=== PATIENT | female | born 1935 | race Caucasian/White ===

== ENCOUNTER → 2018-07-05 16:43 | Outpatient (CLI) | payer MEDICARE, SELFPAY | PROVIDERS: Family Provider Internal Medicine; PCP Internal Medicine; Visit Provider Internal Medicine | DX: M54.6 Pain in thoracic spine (principal) | CPT/HCPCS: 72070 ==

== ENCOUNTER → 2018-10-18 16:07 | Outpatient (CLI) | payer MEDICARE, SELFPAY ==
--- NOTE | 2018-10-18 16:18 | RAD_ITS ---
STUDY: X-RAY - LUMBAR SPINE REASON FOR EXAM: Female, 82 years old. Back pain. TECHNIQUE: 5 view(s) of the lumbar spine were obtained. COMPARISON: None FINDINGS: There is an exaggerated lumbar lordosis. There is a 20 degree dextroscoliosis of the lumbar spine centered near L2-3. There is minor retrolisthesis of L3 on L4. The patient has undergone prior L4 and L5 laminectomies. There is multilevel endplate spondylosis of the lumbar vertebrae. There is multi-level degenerative disc disease with multi-level disc space narrowing. There is no demonstrated osseous destructive lesion or acute fracture. There are multilevel degenerative changes of the facet articulations. Degenerative arthroses with particular cortical sclerosis also seen in the inferior aspect of the bilateral sacroiliac joints. There are mild atherosclerotic calcifications of the abdominal aorta and iliac arteries. A number of surgical clips project in the high epigastrium. RAD/L/S Spine Min 4 Views IMPRESSION: Prior L4 and L5 laminectomies. Degenerative changes of the spine, as detailed above. Electronically Signed: Fernando Nassar MD at 16:47 EST , Service support ,
== END ==
PROVIDERS: Family Provider Internal Medicine; PCP Internal Medicine; Referring Provider Nurse Practitioner Family; Visit Provider Nurse Practitioner Family
DX: M46.96 Unspecified inflammatory spondylopathy, lumbar region (principal); M96.1 Postlaminectomy syndrome, not elsewhere classified; M54.17 Radiculopathy, lumbosacral region; M47.817 Spondylosis without myelopathy or radiculopathy, lumbosacral region
CPT/HCPCS: 72110

== ENCOUNTER → 2018-12-21 10:44 | Outpatient (CLI) | payer MEDICARE, SELFPAY ==
--- NOTE | 2018-12-21 10:52 | ECHOCS_ITS ---
Reason For Study: PALPITATIONS Procedure This was a 2D Doppler, Color Flow transthoracic echocardiogram. Exam performed in department. Left Ventricle Normal size and thickness. Senile septal hypertrophy without evidence of systolic anterior motion of mitral leaflet or LVOT obstruction. The estimated ejection fraction is 65 %. Septal motion consistent with IVCD. Right Ventricle Normal size and thickness. Normal systolic function. Atria Normal left atrium. Normal right atrium. Normal atrial septum. Mitral Valve The mitral valve is structurally normal. No prolapse or stenosis seen. Trivial mitral valve insufficiency. Tricuspid Valve Normal tricuspid valve. Mild (1+) tricuspid valve insufficiency. Right ventricular systolic pressure estimated to be 25 mmHg. Aortic Valve Trisinus/trileaflet aortic valve. Pulmonic Valve The pulmonic valve is not well visualized. Great Vessels Normal aortic root. Normal arch. Normal inferior vena cava. Inferior vena cava collapse with sniff. Pericardium/Pleural No pericardial effusion. Medication 22 gauge I.V. with prn adaptor inserted into right arm. Diluted definity 5ml given slow IV push to enhance endocardial definition. MMode/2D Measurements & Calculations LVIDd: 5.0 cm IVSd: 0.94 cm Ao root diam: 3.8 cm LVIDs: 3.1 cm LVPWd: 0.98 cm FS: 38.5 % LAV(MOD-bp): 43.6 ml EDV(MOD-sp4): 77.1 ml EDV(MOD-sp2): 77.5 ml LAV(MOD-bp) Indexed: 23.1 ml/m2 ESV(MOD-sp4): 26.9 ml EF(MOD-sp2): 74.5 % LAV(MOD-sp2): 47.7 ml EF(MOD-sp4): 65.2 % LAV(MOD-sp4): 35.3 ml SV(MOD-sp4): 50.3 ml SV(MOD-sp2): 57.7 ml LA A4 area: 15.6 cm2 LA dimension(2D): 3.3 cm RA A4 area: 15.0 cm2 Time Measurements MV dec time: 0.50 sec Doppler Measurements & Calculations MV E max morgan: 53.5 cm/sec Lat Peak E' Morgan: 9.1 cm/sec Med Peak E' Morgan: 3.9 cm/sec MV A max morgan: 74.0 cm/sec E/E' lat: 5.9 E/E' med: 13.8 MV E/A: 0.72 Ao V2 max: 119.6 cm/sec LV V1 max: 93.1 cm/sec PA V2 max: 72.0 cm/sec Ao max P.7 mmHg LV V1 max P.5 mmHg TR max morgan: 245.9 cm/sec TR max P.2 mmHg Interpretation Summary The estimated ejection fraction is 65 %. Senile septal hypertrophy without evidence of systolic anterior motion of mitral leaflet or LVOT obstruction. Trivial mitral valve insufficiency. Mild (1+) tricuspid valve insufficiency. Right ventricular systolic pressure estimated to be 25 mmHg. Compared to echo report dated 06/08/2016, no appreciable changes noted. The study was technically difficult. Contrast injection was performed. Ordering Physician: Josefina Xiong Referring Physician: Josefina Xiong Performed By: Kita Shaver, RDCS, RVT
== END ==
PROVIDERS: Family Provider Internal Medicine; PCP Internal Medicine; Referring Provider Internal Medicine; Visit Provider Internal Medicine
DX: R00.2 Palpitations (principal)
CPT/HCPCS: 93306; Q9957; A4216; C8929

== ENCOUNTER 2019-01-10 11:00 | Observation (INO) | payer MEDICARE, SELFPAY ==
[2019-01-10] VITALS (11 sets, daily range): BP systolic 111–160; BP diastolic 62–103; PULSE 56–75; RESP 14–20; TEMP 36.6–36.8; O2SAT 94–100; BMI 38.5; BMI 38.7
--- NOTE | 2019-01-10 11:23 | RAD_ITS ---
STUDY: X-RAY CHEST REASON FOR EXAM: Female, 83 years old. Chest heaviness and palpitations. TECHNIQUE: Single AP portable view of the chest. COMPARISON: Comparison is made with prior study dated June 08, 2016. FINDINGS: EKG electrodes are seen. Stable elevation of the right hemidiaphragm. There is no demonstrated pleural abnormality. There is mild cardiac enlargement. Normal mediastinum and yaw. Normal visualized pulmonary arteries. There is atherosclerotic tortuosity of the aortic arch and descending thoracic aorta. There are diffuse degenerative changes of the visualized thoracic spine. Normal visualized ribs, clavicles, and shoulders. There is no demonstrated abnormality of the visualized soft tissue structures of the upper abdomen. RAD/Chest 1 View (Portable) IMPRESSION: Cardiomegaly. No acute abnormality is seen. Electronically Signed: Young Giles, at 11:57 EST , Service support ,
--- NOTE | 2019-01-10 11:23 | EKG12_ITS ---
Test Reason : PALPATATIONS Blood Pressure : / mmHG Vent. Rate : 069 BPM Atrial Rate : 069 BPM P-R Int : 244 ms QRS Dur : 114 ms QT Int : 396 ms P-R-T Axes : -46 011 -24 degrees QTc Int : 424 ms Unusual P axis, possible ectopic atrial rhythm with undetermined rhythm irregularity Low voltage QRS Right bundle branch block T wave abnormality, consider inferior ischemia Abnormal ECG Confirmed by MADELINE BARBA, LEE ([id number]), ware tester ELIOT DE LEÓN ([id number] on 01/11/2019 3:44:25 PM Referred By: Diogo Leggett Confirmed By:LEE CORREA MD
[2019-01-10 11:49] LABS: Absolute Lymphocyte Count 3.31 X10^3/ul (0.83-4.51); Absolute Neutrophil Count 2.2 X10^3/uL (2.0-7.7); Basophil# 0.02 X10^3/uL; Basophil% 0.3 % (0-1); Eosinophil# 0.13 X10^3/uL; Eosinophils% 2.1 % (0-5); Hematocrit 39.4 % (37-47); Hemoglobin 12.7 g/dl (12.0-15.0); Lymphocyte # 3.31 X10^3/ul (4.0); Lymphocyte % 53.8 % (19-41); Mean Corp Hgb Conc 32.2 g/gl (32-36); Mean Corpuscular Hgb 31.2 pg (27.0-32.0); Mean Corpuscular Volume 96.8 fL (81-99); Mean Platelet Vol. 9.1 fl (6.2-12.0); Monocyte# 0.44 X10^3/uL; Monocyte% 7.2 % (0-10); Neutrophil # 2.24 X10^3/uL (2.7-7.7); Neutrophil % 36.4 % (47-70); Platelet Count 177 K/mm3 (150-450); RBC Distribution Width CV 13.4 % (11.6-14.6); RBC Distribution Width SD 47.6 fl (35.1-43.9); Red Blood Count 4.07 M/mm3 (4.2-5.4); White Blood Count 6.2 K/mm3 (4.4-11.0)
[2019-01-10 11:50] LABS: POSITIVE COUNT NO; POSITIVE DIFFERENTIAL NO; POSITIVE MORPHOLOGY NO
[2019-01-10 12:11] LABS: Anion Gap 6 (5-15); BUN 22 mg/dL (7-18); BUN/Creat Ratio 16.5 RATIO (10-20); Calcium,Total 8.9 mg/dL (8.5-10.1); Chloride 106 mmol/L (98-107); Creatinine, Serum 1.33 mg/dL (0.55-1.02); EST Glomerular Filtration Rate 41 mL/min (>60); Est Glom Filt Rate - Afr Amer 49 mL/min (>60); Estimated Creatinine Clearance 24.61 ml/min; Glucose 95 mg/dL (74-106); Potassium 4.1 mmol/L (3.5-5.1); Sodium Level 140 mmol/L (136-145); Thyroid Stim Hormone (TSH) 1.79 uIU/mL (0.358-3.74)
--- NOTE | 2019-01-10 12:37 | ED.DCSUM_ITS ---
- ER Visit Summary Date of Service: 01/10/19 Chief Complaint: Abnormal heart rhythm History of Present Illness: The patient is a 83 F with an abnormal heart rhythm. She was contacted by the heart center because she is wearing a monitor, and it was noted that she might have atrial fibrillation. She reports intermittent palpitations of the last several weeks. During these episodes, she gets weak and sweaty. She says she has pain into her left shoulder and left arm and left axilla. She denies any history of this in the past. She takes aspirin but no other blood thinners. She also takes bystolic and is compliant with her treatment. Physical Examination: Afebrile and vital signs unremarkable except for a blood pressure of 160/103. Heart rate 56. Heart is irregularly irregular. Lungs clear. Extremities nontender with no edema. Skin normal in color. Alert and oriented. Test Results: EKG showed atrial fibrillation at a rate of 69. CBC, BMP, troponin unremarkable. TSH normal. Chest x-ray unremarkable. Emergency Department Course and Treatment: EKG done. Patient placed on a monitor. Rate is controlled. Patient will need anticoagulation. I am also concerned that she is having spells of weakness, sweating, and left arm pain. She has not had a stress test. She has no history of ACS, PE, or aortic disease. I spoke with hospitalist who will admit for further care. Treatment Plan: As above Disposition: Admission Impression: 1. A. fib This note was generated with leemail dictation software. It may contain incorrect words, spelling, and punctuation that were not noted in review of the chart prior to signing ED Disposition - Plan for ED Patient: Referrals: Josefina Xiong DO [Primary Care Provider] -
--- NOTE | 2019-01-10 13:03 | CASEMGMT ---
RN CM Assessment Introduced role of RN CM to patient and Aung at bedside. Patient is alert, oriented and able to participate in RN CM Assessment. Care providers, pharmacy, and demographics verified. Presentation: Admitted for Chest Pressure, New Onset Afib. CC: Abnormal Heart Rhythm, she was contacted by the heart center because she was wearing a monitor, and it was noted that she might have atrial fibrillation. PCP: Dr Josefina Jacobs Specialists: Pain- Dr Crespo Preferred Pharmacy: [facility] Insurance: [employer] Medicare PPO Prescription Benefit: Yes LNOK: Aung Lewis Living Arrangements: Retired, Lives with in a Home. Independent with ambulation and ADL's. Can drive if she wants but preference for to drive. Transportation: Aung, will drive on [place]. DME: [employer]. No Preference on Company. HHC: Denies past. no preference on Agency. SNF: Denies past. No preference on Facility. DC PLAN: Home with , No anticipated needs identified. Matty Fierro RNCM
--- NOTE | 2019-01-10 13:32 | HP.PCM_ITS ---
Problem List (1) GERD (gastroesophageal reflux disease) Status: Chronic (2) Type II diabetes mellitus Status: Chronic (3) Hypertension Status: Chronic (4) New onset a-fib Status: Acute (5) IBS (irritable bowel syndrome) Status: Chronic (6) DJD (degenerative joint disease) Status: Chronic (7) Chest pressure Status: Acute History of Present Illness Date of Admission: 01/10/19 Chief Complaint: New onset A. fib and chest pressure The patient is a 83 year old F with history of hypertension and diabetes mellitus type 2, irritable bowel syndrome was sent to ER by heart center as she is wearing Holter monitor. She was found to have A. fib. Patient also feeling palpitation/flutter waves for last 3-4 weeks. She is also feeling very weak tired and sweaty. She complain of intermittent chest pressure with radiation to left shoulder and arm for about 1 month unrelated to activity. She denies any change in breathing. In ED, EKG shows A. fib at 69 bpm with right bundle branch block. Previous EKG of May 2016 shows sinus rhythm with first-degree AV block incomplete right bundle branch block, QRS 114 ms. Chest x-ray shows no acute abnormality. [] Past Medical History Past Medical History (Chronic Problems): Chronic Problems IBS (irritable bowel syndrome) (Chronic) DJD (degenerative joint disease) (Chronic) GERD (gastroesophageal reflux disease) (Chronic) Type II diabetes mellitus (Chronic) Hypertension (Chronic) Allergies fentanyl Adverse Reaction (Verified 01/10/19 11:01) Other palpitations, increased blood pressure Sulfa (Sulfonamide Antibiotics) Adverse Reaction (Verified 01/10/19 11:01) Other Home Medications: Ambulatory Orders Medication Instructions Recorded Aspirin [Ecotrin] 81 mg PO DAILY 03/01/14 Cyclobenzaprine [Flexeril] 10 mg PO TID PRN PRN 03/01/14 Nebivolol HCl [Bystolic (Beta 10 mg PO QHS 03/01/14 Luis Miguel)] Hydrocodone/Acetaminophen [Vicodin 1 - 2 tab PO BID PRN 06/08/16 Es 7.5-300 mg Tablet] Omeprazole 40 mg PO DAILY 06/08/16 Cholecalciferol (VIT D3) [Vitamin 5,000 unit PO DAILY 07/18/17 D] Ezetimibe [Zetia] 10 mg PO DAILY 07/18/17 Rosuvastatin Calcium 10 mg PO QHS 07/18/17 Dicyclomine HCl 20 mg PO TID PRN PRN 09/08/17 Turmeric Root Extract [Turmeric] 500 mg PO DAILY 09/08/17 Rosa Lee, B.lactis 1 each PO DAILY 01/10/19 [Probiotic] Surgical History: appendectomy, hysterectomy, tonsillectomy, - - Paraesophageal hernia repair Psychiatric History: No pertinent psych hx 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 Denies: Chills, Fever, Weight Change HEENT: Denies: Head Aches, Sinus Congestion, Sinus Drainage Cardiovascular: Reports: Chest Pressure. Denies: Chest Pain, Palpitations Respiratory: Denies: Cough, Shortness of breath at rest, Sputum production Gastrointestinal: Reports: Constipation. Denies: Abdominal Pain, Nausea, Vomiting Genitourinary: Reports: Incontinence. Denies: Dysuria, Frequency, Hesitancy, Nocturia, Urgency Musculoskeletal: Reports: Joint Pain, Joint stiffness. Denies: Joint Tenderness Skin: Denies: Rash, Wounds Neurological: Reports: Balance problems, Incoordination, - - Patient had concern for Parkinson disease. Patient has shaking but denies tremors and or body. Denies shortness of leg gait, muscle rigidity or postural instability.. Denies: Focal weakness, Numbness, Tingling Psychiatric: Denies: Anxiety, Depression, Homicidal Ideations, Suicidal Ideations Hematologic/ Lymphatic: Denies: Easy Bruising, Easy Bleeding VTE Information - Inpt Only VTE Present on Admission: No VTE Mechan Device Prophylaxis: None VTE Pharm Prophylaxis ordered?: Yes Patient Problems: Active and Suspected Problems New onset a-fib (Acute) Chest pressure (Acute) - Physical Exam General: Alert, Oriented x3, Cooperative HEENT: Atraumatic, PERRLA, EOMI, Normocephalic Neck: Supple, No JVD, Negative Carotid Bruits Lungs: Clear to auscultation, Normal air movement, No rhonchi, No wheeze, No rales Cardiovascular: Regular rate, Normal S1, Normal S2, No murmurs, Irregular Rate Abdomen: Bowel Sounds Present, Soft, Non Tender, Non-Distended Extremities: Capillary Refill Less than 3 Seconds, Edema Skin: No rashes, No breakdown Musculoskeletal: No Tenderness to Palpation of Joints or Extremities, Arthritic Changes Neurological: Cranial nerves II-XII grossly intact, Deep Tendon Reflexes 2+/4 and Symmetrical, Neuro grossly intact, - - No visible tremor. No muscle rigidity. No postural instability. Psych/Mental Status: Normal Affect, Appropriate Vital Signs Temp Pulse Resp BP Pulse Ox 97.9 F 68 16 111/91 H 100 01/10/19 11:07 01/10/19 12:40 01/10/19 12:40 01/10/19 12:40 01/10/19 12:40 Oxygen Flow Rate (L/min) 2 Oxygen Delivery Method Nasal Cannula Weight: 203 lb 14.841 oz Body Mass Index (BMI) 38.5 Laboratory Tests Past 24 Hrs 01/10/19 01/10/19 11:42 11:42 WBC 6.2 RBC 4.07 L Hgb 12.7 Hct 39.4 MCV 96.8 MCH 31.2 MCHC 32.2 RDW 13.4 RDW Differential 47.6 H Plt Count 177 MPV 9.1 Immature Gran % (Auto) 0.200 Neut % (Auto) 36.4 L Lymph % (Auto) 53.8 H [place] % (Auto) 7.2 Eos % (Auto) 2.1 Baso % (Auto) 0.3 Absolute Neuts (auto) 2.2 Absolute Lymphs (auto) 3.31 Total Counted Not Reportable Sodium 140 Potassium 4.1 Chloride 106 Carbon Dioxide 28.0 Anion Gap 6 BUN 22 H Creatinine 1.33 H Estim Creat Clear Calc 24.61 Est GFR (MDRD) Af Amer 49 L Est GFR (MDRD) Non-Af 41 L BUN/Creatinine Ratio 16.5 Glucose 95 Calcium 8.9 Troponin I < 0.015 TSH 1.79 Assessment/Plan All Active Problems New onset a-fib (Acute) Chest pressure (Acute) The patient is a 83 year old F with history of hypertension and diabetes mellitus type 2, irritable bowel syndrome was sent to ER by heart center as she is wearing Holter monitor. She was found to have A. fib. Patient also feeling palpitation/flutter waves for last 3-4 weeks. She is also feeling very weak tired and sweaty. She complain of intermittent chest pressure with radiation to left shoulder and arm for about 1 month unrelated to activity. She denies any change in breathing. In ED, EKG shows A. fib at 69 bpm with right bundle branch block. Previous EKG of May 2016 shows sinus rhythm with first-degree AV block incomplete right bundle branch block, QRS 114 ms. Chest x-ray shows no acute abnormality. 1. New onset A. fib: On heart rate is mainly on the bradycardic side between 40-60/min, mostly from by Bystolic 10 mg daily. She had echo done on 12/21/2018, reported as normal left ventricle size and thickness, EF 65% with septal motion consistent with IVCD. Senile septal hypertrophy but no evidence of FRANK or LVOT obstruction. No significant valvular abnormality. Mild TR, RVSP 25 mmHg. TSH and free T4 tomorrow a.m. Eliquis 5 mg twice daily 2. Intermittent chest pressure: Serial troponin enzymes. Lexiscan stress test tomorrow morning. Patient does not have prior history of coronary artery disease/heart cath 3. Hypertension: Continue Bystolic with holding parameters for heart rate less than 55/min 4. Diabetes mellitus type 2: On Accu-Chek before meals and at bedtime and cover with NovoLog sliding scale. Glucose on BMP is 95. A1c tomorrow a.m. 5. History of thyroid nodules: Patient had 2 ultrasound-guided thyroid nodule biopsies and was benign by Dr. Sullivan. Denies hypothyroidism or hypothyroidism. 6. Other comorbidities include irritable bowel syndrome, fibromyalgia, diffuse degenerative joint disease of knees hip joints and lower back. Patient also had concern of Parkinson disease but I do not find consistent findings of tremor, postural instability, muscle rigidity. Patient was advised to follow-up with neurology as an outpatient. DVT prophylaxis: On Eliquis 5 mg twice daily Clinical Impression(s) from Imaging Studies Chest X-Ray 01/10/19 11:23 IMPRESSION: Cardiomegaly. No acute abnormality is seen. Laboratory Results 01/10/19 11:42: WBC 6.2, RBC 4.07 L, Hgb 12.7, Hct 39.4, MCV 96.8, MCH 31.2, MCHC 32.2, RDW 13.4, RDW Differential 47.6 H, Plt Count 177, MPV 9.1, Immature Gran % (Auto) 0.200, Neut % (Auto) 36.4 L, Lymph % (Auto) 53.8 H, [place] % (Auto) 7.2, Eos % (Auto) 2.1, Baso % (Auto) 0.3, Absolute Neuts (auto) 2.2, Absolute Lymphs (auto) 3.31, Total Counted Not Reportable 01/10/19 11:42: Sodium 140, Potassium 4.1, Chloride 106, Carbon Dioxide 28.0, Anion Gap 6, BUN 22 H, Creatinine 1.33 H, Estim Creat Clear Calc 24.61, Est GFR (MDRD) Af Amer 49 L, Est GFR (MDRD) Non-Af 41 L, BUN/Creatinine Ratio 16.5, Glucose 95, Calcium 8.9, Troponin I < 0.015, TSH 1.79 Code Visit OBSV E&M: 27454 Initial observation care L3
--- NOTE | 2019-01-10 13:55 | EKG12_ITS ---
Test Reason : CP Blood Pressure : / mmHG Vent. Rate : 061 BPM Atrial Rate : 061 BPM P-R Int : 252 ms QRS Dur : 112 ms QT Int : 412 ms P-R-T Axes : 003 009 -26 degrees QTc Int : 414 ms Sinus rhythm with 1st degree A-V block with Premature atrial complexes Incomplete right bundle branch block T wave abnormality, consider inferior ischemia Abnormal ECG Confirmed by MADELINE BARBA, LEE ([id number]), medical transcription editor FELICITA PRESCOTT ([id number] on 01/15/2019 2:08:27 PM Referred By: Diogo Leggett Confirmed By:LEE CORREA MD
[2019-01-10] MEDS: 0.9% Normal Saline 1,000 ML 75 ML IV (15:27)
[2019-01-10] MEDS: APIXABAN 5 MG TABLET PO (17:08)
[2019-01-10] MEDS: Atorvastatin Calcium 20 MG Tablet PO (21:59)
[2019-01-10] MEDS: Nebivolol HCl 10 MG Tablet PO (21:59)
[2019-01-11] VITALS (8 sets, daily range): BP systolic 125–154; BP diastolic 65–95; PULSE 60–78; RESP 16–21; TEMP 36.3–36.9; O2SAT 94–98
[2019-01-11] MEDS: oxyCODONE 5 MG Tablet PO (03:56)
[2019-01-11] MEDS: 0.9% Normal Saline 1,000 ML 75 ML IV (03:57)
[2019-01-11 05:34] LABS: International Normalized Ratio 1.3; Prothrombin Time (Protime)PT. 16.1 SECONDS (11.7-14.9)
[2019-01-11 05:35] LABS: Partial Thromboplast Time 33.4 Seconds (24.1-36.2)
[2019-01-11] MEDS: Aspirin E.C. 81 MG Tablet PO (05:50)
[2019-01-11 05:53] LABS: Anion Gap 10 (5-15); BUN 18 mg/dL (7-18); BUN/Creat Ratio 15.3 RATIO (10-20); Calcium,Total 8.7 mg/dL (8.5-10.1); Chloride 107 mmol/L (98-107); Cholesterol 124 mg/dL (200); Creatinine, Serum 1.18 mg/dL (0.55-1.02); EST Glomerular Filtration Rate 47 mL/min (>60); Est Glom Filt Rate - Afr Amer 56 mL/min (>60); Estimated Creatinine Clearance 27.74 ml/min; Glucose 89 mg/dL (74-106); High Density Lipoprotein 53 mg/dL; Potassium 3.9 mmol/L (3.5-5.1); Sodium Level 142 mmol/L (136-145); T4 Free Direct 1.36 ng/dL (0.76-1.46); Thyroid Stim Hormone (TSH) 0.89 uIU/mL (0.358-3.74); Triglycerides 131 mg/dL; Very Low Density Lipoprotein 26 mg/dL (5-40)
--- NOTE | 2019-01-11 05:55 | EKG12_ITS ---
Test Reason : AM EKG Blood Pressure : / mmHG Vent. Rate : 066 BPM Atrial Rate : 066 BPM P-R Int : 248 ms QRS Dur : 114 ms QT Int : 414 ms P-R-T Axes : 018 020 -26 degrees QTc Int : 434 ms Sinus rhythm with 1st degree A-V block with Premature atrial complexes Incomplete right bundle branch block Borderline ECG When compared with ECG of 10-JAN-2019 13:37, MANUAL COMPARISON REQUIRED, DATA IS UNCONFIRMED Confirmed by MADELINE BARBA, LEE ([id number]), acquisition editor FELICITA PRESCOTT ([id number]) on 01/15/2019 2:44:35 PM Referred By: Diogo Leggett Confirmed By:LEE CORREA MD
[2019-01-11] MEDS: 0.9% NaCl Peripheral Flush Adult/Peds IV (06:00)
[2019-01-11 06:48] LABS: Absolute Lymphocyte Count 3.18 X10^3/ul (0.83-4.51); Absolute Neutrophil Count 2.4 X10^3/uL (2.0-7.7); Basophil# 0.02 X10^3/uL; Basophil% 0.3 % (0-1); Eosinophil# 0.08 X10^3/uL; Eosinophils% 1.3 % (0-5); Hematocrit 37.2 % (37-47); Hemoglobin 12.2 g/dl (12.0-15.0); Lymphocyte # 3.18 X10^3/ul (4.0); Lymphocyte % 52.6 % (19-41); Mean Corp Hgb Conc 32.8 g/gl (32-36); Mean Corpuscular Hgb 31.5 pg (27.0-32.0); Mean Corpuscular Volume 96.1 fL (81-99); Mean Platelet Vol. 9.6 fl (6.2-12.0); Monocyte# 0.41 X10^3/uL; Monocyte% 6.8 % (0-10); Neutrophil # 2.36 X10^3/uL (2.7-7.7); Platelet Count 170 K/mm3 (150-450); RBC Distribution Width CV 13.6 % (11.6-14.6); RBC Distribution Width SD 47.5 fl (35.1-43.9); Red Blood Count 3.87 M/mm3 (4.2-5.4); White Blood Count 6.1 K/mm3 (4.4-11.0)
[2019-01-11 06:50] LABS: POSITIVE COUNT NO; POSITIVE DIFFERENTIAL NO; POSITIVE MORPHOLOGY NO
--- NOTE | 2019-01-11 09:11 | STRESSREP ---
Stress Test Report Date: 01-11-2019 Procedure: Pharmacologic stress nuclear imaging study Indications: chest pain; diaphoresis Consent: Per the patient Procedure: The patient underwent pharmacologic (Regadenoson) evaluation with a peak heart rate of 98 beats per minute (71 predicted maximal heart rate) and a peak blood pressure of 130/80 mmHg. The baseline ECG demonstrated normal sinus rhythm; right IVCD; PACs . The peak pharmacologic ECG demonstrated continued right IVCD pattern with no obvious changes compared with baseline . There were occasional PACs pretest and in recovery . There was no complaint of chest discomfort during pharmacologic infusion or recovery. The examination was discontinued secondary to completion of protocol. Impression: 1. Pharmacologic (Regadenoson) evaluation 2. Peak pharmacologic ECG with continued right IVCD pattern with no obvious changes compared with baseline . 3. There were occasional PACs pretest and and recovery . 4. Nuclear images pending Myocardial perfusion imaging study: Technique: The patient was injected with 14.7 millicuries of technetium 99m Cardiolite and subsequently rest SPECT Cardiolite nuclear imaging was obtained in the horizontal long, vertical long, and short axis views. The patient underwent pharmacologic (Regadenoson) evaluation with a peak heart rate of 98 beats per minute (71 % percent predicted maximal heart rate) and a peak blood pressure of 130/80 mmHg. The patient was injected with 44.8 millicuries of technetium 99m Cardiolite and subsequently stress SPECT Cardiolite nuclear imaging was obtained in the horizontal long, vertical long, and short axis views. A gated Cardiolite study at peak stress was obtained. Interpretation: Rest and stress SPECT Cardiolite nuclear imaging status post realignment, normalization, and attenuation correction demonstrate relative uniform tracer uptake and myocardial perfusion appearing within normal limits . There is end systolic thickening and brightening. The gated Cardiolite study demonstrates myocardial thickening and inward wall motion. The reported LVEF is 80 %. Impression: 1. Rest and stress SPECT Cardiolite nuclear imaging demonstrate relative uniform tracer uptake and myocardial perfusion appearing within normal limits. 2. The gated Cardiolite study reports an LVEF of 80 %. This note was generated with [employer]Mate[employer] software. It may contain incorrect words, spelling, and punctuation that were not noted in checking the note before signing.
--- NOTE | 2019-01-11 09:43 | DS.PCM_ITS ---
Discharge Date and Diagnosis Date of Admission: 01/10/19 Date of Discharge: 01/11/19 - Primary Discharge Diagnosis Active and Suspected Problems New onset a-fib (Acute) Chest pressure (Acute) - Secondary Discharge Diagnosis Chronic Problems IBS (irritable bowel syndrome) (Chronic) DJD (degenerative joint disease) (Chronic) GERD (gastroesophageal reflux disease) (Chronic) Type II diabetes mellitus (Chronic) Hypertension (Chronic) Hospital Course and Treatment Imaging Results: 01/11/19 05:55 Nuclear Stress Test - Chemical [NM] AM (NON MEDS) Operations: None Summary of Care Provided: [] The patient is a 83 year old F with history of hypertension and diabetes mellitus type 2, irritable bowel syndrome was sent to ER by heart center as she is wearing Holter monitor. She was found to have A. fib. Patient also feeling palpitation/flutter waves for last 3-4 weeks. She is also feeling very weak tired and sweaty. She complain of intermittent chest pressure with radiation to left shoulder and arm for about 1 month unrelated to activity. She denies any change in breathing. In ED, EKG shows A. fib at 69 bpm with right bundle branch block. Previous EKG of May 2016 shows sinus rhythm with first-degree AV block incomplete right bundle branch block, QRS 114 ms. Chest x-ray shows no acute abnormality. 1. New onset A. fib: On heart rate is mainly on the bradycardic side between 40-60/min, mostly from by Bystolic 10 mg daily. She had echo done on 12/21/2018, reported as normal left ventricle size and thickness, EF 65% with septal motion consistent with IVCD. Senile septal hypertrophy but no evidence of FRANK or LVOT obstruction. No significant valvular abnormality. Mild TR, RVSP 25 mmHg. TSH and free T4 within normal limit. Fasting profile within normal limit. Eliquis 5 mg twice daily. Patient EKG still shows irregular heartbeat with normal sinus rhythm and PACs. Patient was advised to continue Holter monitor. A prescription for Eliquis sent to pharmacy. Discussed with Dr. Fuentes to follow-up as an outpatient 2. Intermittent chest pressure: Serial troponin enzymes are negative. Lexiscan stress is negative for acute ischemia patient. Acute coronary syndrome ruled out. Patient does not have prior history of coronary artery disease/heart cath. 3. Hypertension: Continue Bystolic with holding parameters for heart rate less than 55/min 4. Diabetes mellitus type 2: On Accu-Chek before meals and at bedtime and cover with NovoLog sliding scale. Glucose on BMP is 95. A1c tomorrow a.m. 5. History of thyroid nodules: Patient had 2 ultrasound-guided thyroid nodule biopsies and was benign by Dr. Sullivan. Denies hypothyroidism or hypothyroidism. 6. Other comorbidities include irritable bowel syndrome, fibromyalgia, diffuse degenerative joint disease of knees hip joints and lower back. Patient also had concern of Parkinson disease but I do not find consistent findings of tremor, postural instability, muscle rigidity. Patient was advised to follow-up with neurology as an outpatient. DVT prophylaxis: On Eliquis 5 mg twice daily. Discharge medication reconciliation done. Discharge follow-up instructions completed. Discharge process discussed with the patient and all questions were answered to patient's satisfaction.. Subjective: Patient had EKG in the morning which shows normal rhythm with PACs at 66 bpm. Incomplete right bundle branch block, chronic No chest pain or shortness of breath. Patient heart rate is controlled. Orthostatic vitals are negative. No dizziness or lightheadedness. Objective: General: Alert, Oriented x3, Cooperative HEENT: Atraumatic, PERRLA, EOMI, Normocephalic Neck: Supple, No JVD, Negative Carotid Bruits Lungs: Clear to auscultation, Normal air movement, No rhonchi, No wheeze, No rales Cardiovascular: Regular rate, Normal S1, Normal S2, No murmurs,regular rhythm. Converted to normal sinus rhythm Extremities: Capillary Refill Less than 3 Seconds, Edema Skin: No rashes, No breakdown Musculoskeletal: No Tenderness to Palpation of Joints or Extremities, Arthritic Changes Neurological: Cranial nerves II-XII grossly intact, Deep Tendon Reflexes 2+/4 and Symmetrical, Neuro grossly intact,No tremor. No muscle rigidity. No postural instability. Psych/Mental Status: Normal Affect, Appropriate - Physical Exam Vital Signs Temp Pulse Resp BP Pulse Ox 97.9 F 66 21 H 133/83 H 95 01/11/19 05:39 01/11/19 06:37 01/11/19 05:39 01/11/19 05:49 01/11/19 05:39 Oxygen Flow Rate (L/min) 2 Oxygen Delivery Method Room Air Weight: 205 lb 0.478 oz Body Mass Index (BMI) 38.7 Orthostatic Vital Signs Start: 01/10/19 14:47 Freq: q24h Status: Active Protocol: Activity Type Activity Date Activity User E-Sign Co-Sign Detail Recorded Client Recorded Date Recorded By Document 01/11/19 05:49 [facility] [id number] 01/11/19 05:49 [facility] [place] 05:49 Orthostatic Vitals Standing -Blood Pressure (90/60-120/80) 131/74 H -Extremity Use Right Arm -Pulse Rate (60-100) 78 Sitting -Blood Pressure (90/60-120/80) 154/95 H -Extremity Use Right Arm -Pulse Rate (60-100) 71 Lying -Blood Pressure (90/60-120/80) 133/83 H -Extremity Use Right Arm -Pulse Rate (60-100) 71 Intake and Output for Last 24 Hours 01/09/19 01/10/19 01/11/19 23:59 23:59 23:59 Intake Total 1195 / 1195 484 / 484 Balance 1195 / 1195 484 / 484 Laboratory Tests Past 24 Hrs 01/10/19 01/10/19 01/10/19 11:42 11:42 14:58 WBC 6.2 RBC 4.07 L Hgb 12.7 Hct 39.4 MCV 96.8 MCH 31.2 MCHC 32.2 RDW 13.4 RDW Differential 47.6 H Plt Count 177 MPV 9.1 Immature Gran % (Auto) 0.200 Neut % (Auto) 36.4 L Lymph % (Auto) 53.8 H [place] % (Auto) 7.2 Eos % (Auto) 2.1 Baso % (Auto) 0.3 Absolute Neuts (auto) 2.2 Absolute Lymphs (auto) 3.31 Total Counted Not Reportable PT INR APTT Sodium 140 Potassium 4.1 Chloride 106 Carbon Dioxide 28.0 Anion Gap 6 BUN 22 H Creatinine 1.33 H Estim Creat Clear Calc 24.61 Est GFR (MDRD) Af Amer 49 L Est GFR (MDRD) Non-Af 41 L BUN/Creatinine Ratio 16.5 Glucose 95 Calcium 8.9 Troponin I < 0.015 < 0.015 Triglycerides Cholesterol LDL Cholesterol VLDL Cholesterol HDL Cholesterol TSH 1.79 Free T4 01/10/19 01/11/19 01/11/19 17:32 05:00 05:00 WBC 6.1 RBC 3.87 L Hgb 12.2 Hct 37.2 MCV 96.1 MCH 31.5 MCHC 32.8 RDW 13.6 RDW Differential 47.5 H Plt Count 170 MPV 9.6 Immature Gran % (Auto) 0.000 Neut % (Auto) 39.0 L Lymph % (Auto) 52.6 H [place] % (Auto) 6.8 Eos % (Auto) 1.3 Baso % (Auto) 0.3 Absolute Neuts (auto) 2.4 Absolute Lymphs (auto) 3.18 Total Counted Not Reportable PT INR APTT Sodium 142 Potassium 3.9 Chloride 107 Carbon Dioxide 25.0 Anion Gap 10 BUN 18 Creatinine 1.18 H Estim Creat Clear Calc 27.74 Est GFR (MDRD) Af Amer 56 L Est GFR (MDRD) Non-Af 47 L BUN/Creatinine Ratio 15.3 Glucose 89 Calcium 8.7 Troponin I < 0.015 Triglycerides 131 Cholesterol 124 LDL Cholesterol 45 VLDL Cholesterol 26 HDL Cholesterol 53 TSH 0.89 Free T4 1.36 01/11/19 05:00 WBC RBC Hgb Hct MCV MCH MCHC RDW RDW Differential Plt Count MPV Immature Gran % (Auto) Neut % (Auto) Lymph % (Auto) El[place] % (Auto) Eos % (Auto) Baso % (Auto) Absolute Neuts (auto) Absolute Lymphs (auto) Total Counted PT 16.1 H INR 1.3 APTT 33.4 Sodium Potassium Chloride Carbon Dioxide Anion Gap BUN Creatinine Estim Creat Clear Calc Est GFR (MDRD) Af Amer Est GFR (MDRD) Non-Af BUN/Creatinine Ratio Glucose Calcium Troponin I Triglycerides Cholesterol LDL Cholesterol VLDL Cholesterol HDL Cholesterol TSH Free T4 Discharge Activity: May Not Drive Weight Bearing Status: Weight bearing as tolerated Call your doctor if you observe: Fever of 101 or Higher, Numbness or Tingling, Change in Color, Inability to have a bowel movement, Shortness of breath, Fa inting spells, Swelling in the ankles, Chest pain Home Medications: Medications to take at Discharge Cyclobenzaprine [Flexeril] 10 mg PO TID PRN PRN 03/01/14 Hydrocodone/Acetaminophen [Vicodin Es 7.5-300 mg Tablet] 1 - 2 tab PO BID PRN 06/08/16 Omeprazole 40 mg PO DAILY 06/08/16 Cholecalciferol (VIT D3) [Vitamin D3] 5,000 unit PO DAILY 07/18/17 Ezetimibe [Zetia] 10 mg PO DAILY 07/18/17 Rosuvastatin Calcium 10 mg PO QHS 07/18/17 Dicyclomine HCl 20 mg PO TID PRN PRN 09/08/17 Turmeric Root Extract [Turmeric] 500 mg PO DAILY 09/08/17 L.acidoph,Paracasei, B.lactis [Probiotic] 1 each PO DAILY 01/10/19 Apixaban [Eliquis] 5 mg PO BID #60 tablet 01/11/19 Nebivolol HCl [Bystolic (Beta Luis Miguel)] 10 mg PO QHS #0 01/11/19 Following Prescrptions Were Given to Patient: Apixaban [Eliquis] 5 mg PO BID #60 tablet Primary Care Physician: Josefina Xiong DO [Primary Care Provider] - Please follow up with your Primary Care Physician in: in 2 weeks Please Follow Up With: Michael Fuentes MD When: in 2-4 weeks for PAFIB/sinus rhythm with PACs Medical Necessity - Tobacco Use Smoking Status: Former smoker Meaningful Use Info Meaningful Use Diagnoses (Choose all that apply): None applicable Code Visit OBSV E&M: 48308 Observation care discharge
--- NOTE | 2019-01-11 09:43 | DCINST_ITS ---
- Discharge Diagnoses Current Active Problems: Current Active and Chronic Problems New onset a-fib (Acute) IBS (irritable bowel syndrome) (Chronic) DJD (degenerative joint disease) (Chronic) Chest pressure (Acute) You will use the following diet at home:: Cardiac Your food should be the consistency of: Regular Discharge Activity: May Not Drive Weight Bearing Status: Weight bearing as tolerated Call your doctor if you observe: Fever of 101 or Higher, Numbness or Tingling, Change in Color, Inability to have a bowel movement, Shortness of breath, Fainting spells, Swelling in the ankles, Chest pain Allergies/Adverse Reactions: Allergies fentanyl Adverse Reaction (Verified 01/10/19 11:01) Other palpitations, increased blood pressure Sulfa (Sulfonamide Antibiotics) Adverse Reaction (Verified 01/10/19 11:01) Other Medications to take at Discharge Cyclobenzaprine [Flexeril] 10 mg PO TID PRN PRN 03/01/14 Hydrocodone/Acetaminophen [Vicodin Es 7.5-300 mg Tablet] 1 - 2 tab PO BID PRN 06/08/16 Omeprazole 40 mg PO DAILY 06/08/16 Cholecalciferol (VIT D3) [Vitamin D3] 5,000 unit PO DAILY 07/18/17 Ezetimibe [Zetia] 10 mg PO DAILY 07/18/17 Rosuvastatin Calcium 10 mg PO QHS 07/18/17 Dicyclomine HCl 20 mg PO TID PRN PRN 09/08/17 Turmeric Root Extract [Turmeric] 500 mg PO DAILY 09/08/17 L.acidoph,Paracasei, B.lactis [Probiotic] 1 each PO DAILY 01/10/19 Apixaban [Eliquis] 5 mg PO BID #60 tablet 01/11/19 Nebivolol HCl [Bystolic (Beta Luis Miguel)] 10 mg PO QHS #0 01/11/19 The following prescriptions were given: Apixaban [Eliquis] 5 mg PO BID #60 tablet Primary Care Physician: Josefina Xiong DO [Primary Care Provider] - Please follow up with your Primary Care Physician in: in 2 weeks Test Results: Test results from this visit will be discussed in further detail at your follow- up appointment, if applicable. Please Follow Up With: Michael Fuentes MD When: in 2-4 weeks for PAFIB/sinus rhythm with PACs
--- NOTE | 2019-01-11 09:53 | CASEMGMT ---
KAYA LAKHANI NOTE: Pt will be discharged home on Eliquis. Call placed [facility]. Eliquis 30-day trial offer card applied. 1st month supply will be free and then co-pay will be $15/month. Pt and made aware. Sary MACDONALDN RN CM
== END 2019-01-11 09:43 | disposition home or self-care (01) ==
LOC: ED 11:51 → PCU 12:40
PROVIDERS: Admitting Provider Internal Medicine; Emergency Provider Emergency Medicine; Family Provider Internal Medicine; PCP Internal Medicine; Referring Provider Internal Medicine; Visit Provider Internal Medicine
DX: I48.91 Unspecified atrial fibrillation (principal); R07.89 Other chest pain; K21.9 Gastro-esophageal reflux disease without esophagitis; E11.9 Type 2 diabetes mellitus without complications; I10 Essential (primary) hypertension; K58.9 Irritable bowel syndrome, unspecified; I44.0 Atrioventricular block, first degree; I45.10 Unspecified right bundle-branch block; M17.0 Bilateral primary osteoarthritis of knee; M79.7 Fibromyalgia; M16.0 Bilateral primary osteoarthritis of hip; M47.9 Spondylosis, unspecified; Z79.899 Other long term (current) drug therapy; Z79.82 Long term (current) use of aspirin; Z87.891 Personal history of nicotine dependence
CPT/HCPCS: 36415; 71045; 78452; 80048; 80061; 84439; 84443; 84484; 85025; 85610; 85730; 93005; 93017; 96360; 96361; 99218; 99285; A9500; J7030; A4216; G0378; J2785

== ENCOUNTER → 2019-02-08 13:51 | Outpatient (CLI) | payer MEDICARE, SELFPAY ==
[2019-02-02 09:34] VITALS: BMI 39.0
--- NOTE | 2019-02-08 13:54 | US_ITS ---
STUDY: THYROID ULTRASOUND REASON FOR EXAM: Female, 83 years old. Thyroid nodules TECHNIQUE: Ultrasound evaluation of the thyroid was performed with real-time and static suazo-scale imaging. COMPARISON: Ultrasound thyroid 01/10/2017, 02/20/2016, 01/16/2015. FINDINGS: RIGHT LOBE: The right thyroid measures 3.7 x 1.2 x 1.2 cm. Generalized mildly heterogeneous echotexture. Normal vascularity. Lower pole dominant nodule 6 x 5 x 4 mm, solid, niecy-nodular vascular flow. A few additional small nodules are present, blunting of the background heterogeneity of the gland. LEFT LOBE: The left thyroid measures 5.3 x 3.0 x 2.6 cm, also with mildly heterogeneous echotexture and normal vascularity. There are multiple thyroid nodules with cystic and solid. The largest in the lower pole solid 2.7 x 2.4 x 2.3 cm with perinodular vascular flow, smooth margins, heterogeneously hypoechoic echotexture. The additional nodules are hypoechoic and quite small. ISTHMUS: The isthmus measures 9 mm, heterogeneous echotexture without nodule. . US/Thyroid IMPRESSION: No significant change in the pattern of right thyroid gland nodules, the largest measuring about 6 x 5 x 4 mm. Surveillance imaging remains appropriate. Right thyroid, dominant nodule in the lower pole probably solid features, heterogeneous echotexture. Greatest dimension 2.7 cm. Grade is dimension of the same focus on prior imaging of 2016 was approximately 2.47 cm. Greatest dimension on the study of 02/20/2016 approximately 2.5 cm. Minimal apparent interval increase in size. Based on the [place] [employer] Guidelines for assessment of thyroid nodules, this nodule falls into the intermediate suspicion pattern and based on size criteria with a greatest dimension over 1 cm, biopsy is recommended. However, with very minimal jacket changer the course of several years, continued surveillance imaging may be appropriate. It is unknown whether this dominant nodule has been previously biopsied. Electronically Signed: Allen Back MD at 13:17 EDT Tel , Service support ,
--- NOTE | 2019-02-08 13:54 | BI_ITS ---
MAMMOGRAPHY - BILATERAL SCREENING REASON FOR EXAM: Female, 83 years old. Routine annual screening examination. PERTINENT HISTORY: Sister with breast cancer. Grandmother with breast cancer. TECHNIQUE: Digital bilateral breast vu (3D mammographic acquisition) in the CC and MLO projections. 2-D mediolateral oblique (MLO) and craniocaudad (CC) views of both breasts were obtained. CAD: Full Field Digital Mammography with Computer Added Detection was performed. COMPARISON: Comparison is made with prior study dated February 03, 2017 and October 23, 2013. FINDINGS: Breast Composition: There are scattered areas of fibroglandular density. There are no dominant masses or suspicious calcifications. Stable small bilateral axillary lymph nodes. No other significant abnormalities are identified. There has been no significant change since the prior study. BI/SCREENING MAMM (CAD), BILAT IMPRESSION: Stable bilateral screening mammogram. Yearly follow-up mammogram recommended. (A) ASSESSMENT CATEGORY: BIRADS Category 2: Benign. A letter regarding these results will be sent to the patient by the facility within 30 days. Approximately 10% of breast cancers are not detected by mammography. A normal mammogram should not delay biopsy of a clinically suspicious abnormality. [id number] Electronically Signed: Young Giles, at 15:50 EDT , Service support ,
--- NOTE | 2019-02-08 14:36 | BD_ITS ---
STUDY: DUAL ENERGY X-RAY ABSORPTIOMETRY / DXA REASON FOR EXAM: Female, 83 years old. The patient is postmenopausal. Loss of height. TECHNIQUE: Bone Mineral Density (BMD) measurements of lumbar spine and bilateral hips were obtained. COMPARISON: Comparison is made with prior study February 03, 2017. FINDINGS: Lumbar Spine (L1-L4): g/cm2 (1.180) / T-score (0.1) / Z-score (2.0) Findings are suggestive of normal bone density with a low fracture risk. Left Femur Total: g/cm2 (0.855) / T-score (-1.2) / Z-score (0.9) Left Femoral Neck: g/cm2 (0.742) / T-score (-2.1) / Z-score (0.1) Right Femur Total: g/cm2 (0.843) / T-score (-1.3) / Z-score (0.8) Right Femoral Neck: g/cm2 (0.761) / T-score (-2.0) / Z-score (0.3) The T-Scores on the most recent prior examination were: Lumbar Spine (L1-L4): There has been worsening of bone density since the previous examination. Left Femur Total: which represents a worsening of 4.7. Right Femur Total: which represents a worsening of 4.2. BD/Dexa Bone Density Study IMPRESSION: The patient is considered osteopenic as outlined below according to World [place] Organization (WHO) criteria with a moderate fracture risk. There has been worsening of bone density since the previous examination. Reference Information: The T-score is the number of standard deviations above or below the standard which is normal for young adults at their peak bone mineral density. The World Health Organization (WHO) interprets the T-scores as follows: Above -1 Normal bone density Between -1 and -2.5 Osteopenia Equal to / or below -2.5 Osteoporosis As a practical clinical guideline, osteopenia may be graded as follows: Mild -1 through -1.5 Moderate -1.6 through -2.0 Severe -2.1 through -2.4 The Z-score is the number of standard deviations above or below age-matched controls. A Z-score of less than -1.5 would be considered abnormal. References: 1. NIH Osteoporosis and Related Bone Diseases http://www.osteo.org 2. International Society for Clinical Densitometry http://www.iscd.org 3. National Osteoporosis Foundation http://www.nof.org Electronically Signed: Young Giles, at 15:28 EDT , Service support ,
== END ==
PROVIDERS: Family Provider Internal Medicine; PCP Internal Medicine; Referring Provider Internal Medicine; Visit Provider Internal Medicine
DX: Z12.31 Encounter for screening mammogram for malignant neoplasm of breast (principal); Z78.0 Asymptomatic menopausal state; E04.1 Nontoxic single thyroid nodule
CPT/HCPCS: 76536; 77063; 77067; 77080

== ENCOUNTER → 2019-03-09 11:39 | Outpatient (CLI) | payer MEDICARE, SELFPAY ==
[2019-02-02 09:34] VITALS: BMI 39.0
--- NOTE | 2019-03-09 11:42 | CT_ITS ---
STUDY: CT CHEST WITHOUT CONTRAST REASON FOR EXAM: Female, 83 years old. Calcium scoring examination. Radiological over read. RADIATION DOSAGE (If Supplied By Facility): CTDIvol = ( 14.46 ) mGy, DLP = ( 1025.46 ) mGycm TECHNIQUE: Transaxial imaging was performed without the administration of intravenous contrast material. Individualized dose optimization techniques were used for this CT. COMPARISON: None. FINDINGS: Small bilateral benign-appearing bilateral axillary lymph nodes. There is evidence of bone reticular nodular markings in the superior segment of the left lower lobe suggestive of a scarring. Mild degree of volume scarring at the lung bases with bronchiectasis. There is no demonstrated pleural abnormality. There are calcifications of the coronary arteries. There are multiple small lymph nodes within the mediastinum, which are normal in size and morphology most compatible with reactive lymph hyperplasia. Normal hilar regions. Normal unenhanced pulmonary arteries. There is atherosclerotic calcification of the aortic arch. There are multi-level degenerative changes of the thoracic spine. There is no demonstrated abnormality of the visualized upper abdomen. CT/CCTA W/CONT Coronary Arteries IMPRESSION: Coronary artery calcification. Stable scarring at the lung bases with reticular nodular pattern in the superior segment of the left lower lobe suggestive of scarring. Electronically Signed: Young Giles, at 13:59 EDT , Service support ,
--- NOTE | 2019-03-09 11:54 | CT_ITS ---
STUDY: CT CHEST WITHOUT CONTRAST REASON FOR EXAM: Female, 83 years old. Calcium scoring examination. Radiological over read. RADIATION DOSAGE (If Supplied By Facility): CTDIvol = ( 14.46 ) mGy, DLP = ( 1025.46 ) mGycm TECHNIQUE: Transaxial imaging was performed without the administration of intravenous contrast material. Individualized dose optimization techniques were used for this CT. COMPARISON: None. FINDINGS: Small bilateral benign-appearing bilateral axillary lymph nodes. There is evidence of bone reticular nodular markings in the superior segment of the left lower lobe suggestive of a scarring. Mild degree of volume scarring at the lung bases with bronchiectasis. There is no demonstrated pleural abnormality. There are calcifications of the coronary arteries. There are multiple small lymph nodes within the mediastinum, which are normal in size and morphology most compatible with reactive lymph hyperplasia. Normal hilar regions. Normal unenhanced pulmonary arteries. There is atherosclerotic calcification of the aortic arch. There are multi-level degenerative changes of the thoracic spine. There is no demonstrated abnormality of the visualized upper abdomen. CT/Limited Chest CT w/CCTA IMPRESSION: Coronary artery calcification. Stable scarring at the lung bases with reticular nodular pattern in the superior segment of the left lower lobe suggestive of scarring. Electronically Signed: Young Giles, at 13:59 EDT , Service support ,
--- NOTE | 2019-03-09 11:54 | CT_ITS ---
STUDY: CT CHEST WITHOUT CONTRAST REASON FOR EXAM: Female, 83 years old. Calcium scoring examination. Radiological over read. RADIATION DOSAGE (If Supplied By Facility): CTDIvol = ( 14.46 ) mGy, DLP = ( 1025.46 ) mGycm TECHNIQUE: Transaxial imaging was performed without the administration of intravenous contrast material. Individualized dose optimization techniques were used for this CT. COMPARISON: None. FINDINGS: Small bilateral benign-appearing bilateral axillary lymph nodes. There is evidence of bone reticular nodular markings in the superior segment of the left lower lobe suggestive of a scarring. Mild degree of volume scarring at the lung bases with bronchiectasis. There is no demonstrated pleural abnormality. There are calcifications of the coronary arteries. There are multiple small lymph nodes within the mediastinum, which are normal in size and morphology most compatible with reactive lymph hyperplasia. Normal hilar regions. Normal unenhanced pulmonary arteries. There is atherosclerotic calcification of the aortic arch. There are multi-level degenerative changes of the thoracic spine. There is no demonstrated abnormality of the visualized upper abdomen. CT/CCTA Calcium Scoring IMPRESSION: Coronary artery calcification. Stable scarring at the lung bases with reticular nodular pattern in the superior segment of the left lower lobe suggestive of scarring. Electronically Signed: Young Giles, at 13:59 EDT , Service support ,
[2019-03-09 12:48] VITALS: BP 125/53; PULSE 67; RESP 14; O2SAT 97; BMI 39.0
[2019-03-09 14:40] LABS: CREATININE FINGERSTICK 1.3 mg/dL (0.55-1.02)
[2019-03-09 15:05] VITALS: BP 125/53; PULSE 67
[2019-03-09 15:27] VITALS: BP 127/69; PULSE 65; RESP 16; O2SAT 96
--- NOTE | 2019-03-19 17:44 | CA.SCORE ---
Calcium Scoring Date of Study:: 03/09/19 Coronary Calcium Scoring: High-resolution Computed Tomographic imaging of the chest was performed on [03/09/2019], with particular attention paid to the coronary arteries. Images from the examination were analyzed for the presence and extent of coronary artery calcification , using coronary calcium quantification software. The patient tolerated the procedure well and there were no complications. The results of the coronary calcification analysis are provided below. - Findings Left Main (LM): 0 Left Anterior Descending (LAD): 1 Left Circumflex (LCX): 11 Right Coronary Artery (RCA): 23 Total Agatston Score: 35 Percentile Rankin - Conclusion Calcium Scoring Interpretation: Calcium Score Interpretation 0 No identifiable atherosclerotic plaque. Very low cardiovascular disease risk. <5% chance of presence coronary artery disease A Negative Examination 1-10 Minimal Plaque burden. Significant coronary artery disease very unlikely. 11-100 Mild plaque burden. Likely mild or minimal coronary atherosclerosis. 101-400 Moderate plaque burden Moderate non-obstructive coronary artery disease highly likely. Over 400 Extensive plaque burden. High likelihood of at least one significant coronary stenosis (>50% diameter) Calcium Score: 11 - 100 Likely mild or minimal coronary stenosis - The above is suggestive of minimal or mild coronary atherosclerosis. A further evaluation of the cardiac risk should include an assessment of all conventional risk factors as well.
== END ==
PROVIDERS: Family Provider Internal Medicine; PCP Internal Medicine; Referring Provider Internal Medicine Cardiovascular Disease; Visit Provider Internal Medicine Cardiovascular Disease
DX: R07.9 Chest pain, unspecified (principal); E78.5 Hyperlipidemia, unspecified; I10 Essential (primary) hypertension; I45.10 Unspecified right bundle-branch block; I48.91 Unspecified atrial fibrillation
CPT/HCPCS: 75571; 75574; 76380; J7050; Q9967; A4216

== ENCOUNTER → 2019-03-19 16:07 | Outpatient (CLI) | payer MEDICARE, SELFPAY ==
[2019-03-09 17:27] VITALS: BMI 39.0
--- NOTE | 2019-03-19 16:14 | MRI_ITS ---
STUDY: MRA OF THE HEAD WITHOUT CONTRAST REASON FOR EXAM: Female, 83 years old. False TECHNIQUE: 3-D [id number] (TOF) imaging was performed with MIPs. The study was performed unenhanced. COMPARISON: None. FINDINGS: Normal bilateral petrous carotid arteries. Normal right cavernous carotid artery with a normal supraclinoid bifurcation. Normal left cavernous carotid artery with a normal supraclinoid bifurcation. Normal right A1 segments of the anterior cerebral artery. Normal left A1 segments of the anterior cerebral artery. Normal intact anterior communicating artery (ACOM). Normal bilateral A2 segments of the anterior cerebral arteries. Normal right M1 and M2 segments of the middle cerebral arteries, with a normal M1 bifurcation. Normal left M1 and M2 segments of the middle cerebral arteries, with a normal M1 bifurcation. 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 Normal left posterior communicating artery (PCOM). The RIGHT vertebral artery is dominant and supplies the basilar artery. The LEFT vertebral artery is small and caliber and ends in the LEFT posterior inferior cerebellar artery which is a normal variation. Normal basilar artery with a normal basilar bifurcation. The visualized bilateral superior cerebellar (SCA) arteries are normal. Normal bilateral P1, P2 and visualized P3 segments of the posterior cerebral arteries. There is no demonstrated aneurysm of the [place] of [place]. There is no major vessel occlusion or hemodynamically significant stenosis. There is no demonstrated abnormality of the visualized brain. MRI/MRA Head ONLY without Contrast IMPRESSION: Normal MRA of the head Electronically Signed: Kashmir Loyd MD at 1:57 EDT , Service support ,
--- NOTE | 2019-03-19 17:04 | CT_ITS ---
STUDY: CT BRAIN WITHOUT CONTRAST REASON FOR EXAM: Female, 83 years old. Recurrent falls RADIATION DOSAGE (If Supplied By Facility): CTDIvol = ( 60.81 ) mGy, DLP = ( 1021.47 ) mGycm TECHNIQUE: Transaxial CT imaging of the brain was performed without administration of intravenous contrast material. Individualized dose optimization techniques were used for this CT. COMPARISON: June 08, 2016 CT head FINDINGS: Normal soft tissue structures. Normal calvarium. There is mild cerebral atrophy with widening of the extra-axial spaces and ventricular dilatation. There is a similar pattern of multifocal areas of low attenuation within the periventricular white matter and within the bilateral basal ganglia compatible chronic ischemic change. There are small foci of low attenuation within the basal ganglia compatible with old lacunar infarcts. Normal brainstem. There is mild cerebellar atrophy. There is no intracranial hemorrhage. There are no findings of an acute ischemic infarction. Normal visualized paranasal sinuses. There is slightly greater suggestion of fluid within the right-sided mastoid air cells with them when compared to the prior study June 08, 2016. CT/Brain/Head without Contrast IMPRESSION: There is atrophy and advanced chronic involutional change suggesting chronic small vessel ischemic change. This is relatively stable when compared to prior study. Trace amount of greater fluid in the right-sided mastoid air cells and prior study. The left-sided mastoid air cells appear clear. The spaces around the bilateral ossicles appear clear. Electronically Signed: Jacqueline Roberts MD at 0:49 EDT Tel , Service support ,
== END ==
PROVIDERS: Family Provider Internal Medicine; PCP Internal Medicine; Referring Provider Nurse Practitioner; Visit Provider Nurse Practitioner
DX: R29.6 Repeated falls (principal)
CPT/HCPCS: 70450; 70544

== ENCOUNTER 2019-05-15 08:26 | Emergency (ER) | payer MEDICARE, SELFPAY ==
[2019-04-24 15:08] VITALS: BMI 39.4
[2019-05-15 08:26] VITALS: BP 142/83; PULSE 79; RESP 18; TEMP 36.7; O2SAT 95; BMI 40.0
--- NOTE | 2019-05-15 08:52 | RAD_ITS ---
STUDY: X-RAY - LEFT HUMERUS REASON FOR EXAM: Female, 83 years old. Pain following a fall. TECHNIQUE: 2 view(s) of the humerus. COMPARISON: None. FINDINGS: Normal visualized humerus. There is no demonstrated fracture or osseous destructive process. There is no demonstrated soft tissue abnormality. RAD/Humerus min 2 Views IMPRESSION: Normal x-ray examination of the humerus. Electronically Signed: Young Giles, at 9:48 EDT , Service support ,
--- NOTE | 2019-05-15 08:52 | RAD_ITS ---
STUDY: X-RAY CHEST REASON FOR EXAM: Female, 83 years old. History of falls. TECHNIQUE: Single AP portable view of the chest. COMPARISON: Comparison is made with prior study dated January 10, 2019. FINDINGS: Stable elevation of the right hemidiaphragm. Mild increased markings at the left lung base suggestive of linear atelectasis and/or scarring. There is no demonstrated pleural abnormality. Normal size heart. Normal mediastinum and yaw. Normal visualized pulmonary arteries. There is atherosclerotic calcification of the aortic arch with tortuosity. There is a dextroscoliosis of the thoracic spine. Normal visualized ribs, clavicles, and shoulders. Surgical volodymyr are seen in the left upper quadrant. RAD/Chest 1 View IMPRESSION: Mild increased markings at the left lung base suggestive of linear atelectasis and/or scarring. Electronically Signed: Young Giles, at 9:50 EDT , Service support ,
--- NOTE | 2019-05-15 08:56 | ED.DCSUM_ITS ---
- ER Visit Summary Date of Service: 05/15/19 Chief Complaint: Fall History of Present Illness: The patient is a 83 F who states she fell around midnight last night injuring her left shoulder. She states she was closing her sliding door and lost her balance and fell. She states she has had approximately 5 falls in the last 2 months. She states typically she would fall backwards and her doctors think she might be in the early stages of Parkinson's. She fell forward on last night's fall. She did not strike her head. There is no loss of consciousness. She did take oxycodone last evening for pain. Physical Examination: Vital signs unremarkable. Patient sitting upright in a bedside chair. Head and neck examination unremarkable. No C-spine tenderness. Heart is regular rate and rhythm. Lung sounds are clear. Abdomen is soft and nontender. Left upper extremity examination was tenderness throughout her left humerus. She has 2 skin tears noted to the left elbow. She has strong distal pulses. There is decreased range of motion the left upper extremity secondary to pain. Test Results: 1 view chest x-ray shows atelectasis of the left lung base. Left humerus x-ray is unremarkable. Emergency Department Course and Treatment: Patient was given p.o. oxycodone here. Test results are discussed with the patient. I will speak with her pain management physician regarding pain meds. Treatment Plan: [] Disposition: Discharge Impression: Left shoulder sprain status post fall This note was generated with [employer] dictation software. It may contain incorrect words, spelling, and punctuation that were not noted in review of the chart prior to signing ED Disposition - Plan for ED Patient: Disposition: Home or Assisted Living Instructions: Shoulder Sprain Prescriptions: Oxycodone HCl/Acetaminophen [Percocet 5/325] 1 tablet PO Q6H PRN PRN 5 Days #20 tablet PRN Reason: Pain Referrals: Josefina Xiong DO [Primary Care Provider] - 1 Week if not improving Elie Whalen MD [STAFF PHYSICIAN] - 1-2 Weeks
[2019-05-15] MEDS: oxyCODONE 5 MG Tablet PO (09:17)
--- NOTE | 2019-05-15 10:50 | ED.RN ---
Pt ambulated from unit with no difficulty. refused w/c. Sling for home. pt states positioning of arm when in sling caused increased pain. Sling sent to use prn.
== END 2019-05-15 10:51 | disposition home or self-care (01) ==
PROVIDERS: Emergency Provider Emergency Medicine; Family Provider Internal Medicine; PCP Internal Medicine
DX: S43.402A Unspecified sprain of left shoulder joint, initial encounter (principal); W18.30XA Fall on same level, unspecified, initial encounter; Y93.89 Activity, other specified; Y92.009 Unspecified place in unspecified non-institutional (private) residence as the place of occurrence of the external cause; Y99.9 Unspecified external cause status; J98.11 Atelectasis; E78.00 Pure hypercholesterolemia, unspecified; I10 Essential (primary) hypertension; E11.9 Type 2 diabetes mellitus without complications; K21.9 Gastro-esophageal reflux disease without esophagitis; M54.9 Dorsalgia, unspecified; G89.29 Other chronic pain; I48.91 Unspecified atrial fibrillation
CPT/HCPCS: 71045; 73060; 99283

== ENCOUNTER 2019-06-04 22:08 | Emergency (ER) | payer MEDICARE, SELFPAY ==
[2019-06-04 22:09] VITALS: BP 130/78; PULSE 89; RESP 16; TEMP 36.3; O2SAT 99; BMI 39.0
--- NOTE | 2019-06-04 23:27 | RAD_ITS ---
HISTORY: FELLC/O LT SHOULDER PAIN. Injury. EXAM/TECHNIQUE: XR Shoulder Min 2 Views: Left. COMPARISON: None. FINDINGS: # of images incl. paperwork: 4 Acute mildly displaced fracture through the base of the greater tuberosity of the humerus. No other fracture is evident. Acromioclavicular and glenohumeral alignment maintained. Tortuous thoracic aorta again demonstrated. RAD/Shoulder min 2 Views IMPRESSION: Acute mildly displaced fracture through the base of the greater tuberosity of the humerus. at 0013 Reported and signed by: Joni Bhardwaj MD Electronically Signed: Joni Bhardwaj, at 0:12 EDT Tel , Service support ,
--- NOTE | 2019-06-04 23:27 | CT_ITS ---
HISTORY: FALL EXAM/TECHNIQUE: CT Spine Cervical W/O Contrast: Axial images obtained, multiplanar reformats provided. COMPARISON: CT chest 10/28/14. FINDINGS: # of images incl. paperwork: 398 No fracture or dislocation of the cervical spine. Sagittal alignment anatomic. Multilevel degenerative changes but no evidence of high-grade spinal canal narrowing. No acute findings in the paraspinal soft tissues. On for nodular thyroid again demonstrated. CT/Spine Cervical without Contras IMPRESSION: No fracture or dislocation of the cervical spine. Individualized dose optimization techniques were used for this CT. at 0044 Reported and signed by: Joni Bhardwaj MD Electronically Signed: Joni Bhardwaj, at 0:42 EDT Tel , Service support ,
--- NOTE | 2019-06-04 23:27 | CT_ITS ---
HISTORY: FALL EXAM/TECHNIQUE: CT Head or Brain W/O Contrast: Multiplanar reformats provided. COMPARISON: 03/19/19 CT brain. FINDINGS: # of images incl. paperwork: 235 No evidence of intracranial hemorrhage, hydrocephalus mass, or acute infarct. No skull fracture. Scattered chronic appearing hypodensities in the cerebral white matter. Calcific atherosclerosis of the intracranial arteries. Left lateral supraorbital scalp soft tissue swelling. CT/Brain/Head without Contrast IMPRESSION: No evidence of intracranial injury or skull fracture. Individualized dose optimization techniques were used for this CT. at 0033 Reported and signed by: Joni Bhardwaj MD Electronically Signed: Joni Bhardwaj, at 0:32 EDT Tel , Service support ,
--- NOTE | 2019-06-04 23:27 | ED.VISSUMM ---
- ER Visit Summary Date of Service: 06/04/19 Chief Complaint: Fall History of Present Illness: The patient is a 83 F who presents after a fall. She fell 2 hours ago. She states she caught her toe. Her she would come off. She fell onto a vinyl floor. She hit the left side of her face and her left shoulder. She had a recent fall with left shoulder pain. Initial x-rays were normal but MRI did show an occult fracture. She otherwise denies recent illness such as nausea vomiting fevers. She denies any loss of consciousness or amnesia. She denies headache. She does complain of some left-sided neck pain. Physical Examination: Afebrile vitals normal There is a hematoma above left eyebrow Pupils are equally round and reactive to light, extraocular motion intact No mclaughlin sign GCS of 15 with no focal or lateralizing neurological deficits Heart regular rate and rhythm Lungs clear Abdomen soft Full range of motion of the left shoulder wrist and hand with no pain there is a skin tear over the left elbow she has limited painful range of motion of the left shoulder Test Results: Shoulder x-ray shows an acute mildly displaced fracture through the greater tuberosity of the humerus. CT the head shows no intracranial hemorrhage. CT the cervical spine shows no fracture. Emergency Department Course and Treatment: Imaging as above. The humerus fracture is likely the already known fracture that was recently seen on MRI. Patient was advised on supportive care. She was mainly concerned about her head. She has no intrarenal hemorrhage. She was advised on signs and symptoms to monitor for and understands to return for new or worsening symptoms and was discharged home. Treatment Plan: [] Disposition: Discharge Impression: Left humerus fracture Closed head injury This note was generated with [employer] dictation software. It may contain incorrect words, spelling, and punctuation that were not noted in review of the chart prior to signing ED Disposition - Plan for ED Patient: Referrals: Josefina Xiong DO [Primary Care Provider] -
[2019-06-05 00:08] VITALS: RESP 18
--- NOTE | 2019-06-05 01:33 | ED.DEP ---
ED Disposition - Plan for ED Patient: Instructions: HEAD INJURY, No Wake-Up (Adult) Referrals: Josefina Xiong DO [Primary Care Provider] -
== END 2019-06-05 01:43 | disposition home or self-care (01) ==
LOC: ED 23:43
PROVIDERS: Emergency Provider Emergency Medicine; Family Provider Internal Medicine; PCP Internal Medicine
DX: S42.302A Unspecified fracture of shaft of humerus, left arm, initial encounter for closed fracture (principal); S09.90XA Unspecified injury of head, initial encounter; W01.198A Fall on same level from slipping, tripping and stumbling with subsequent striking against other object, initial encounter; Y93.89 Activity, other specified; Y92.9 Unspecified place or not applicable; Y99.9 Unspecified external cause status; K21.9 Gastro-esophageal reflux disease without esophagitis; E78.00 Pure hypercholesterolemia, unspecified
CPT/HCPCS: 70450; 72125; 73030; 99282

== ENCOUNTER → 2019-06-26 07:54 | Outpatient (CLI) | payer MEDICARE, SELFPAY ==
[2019-06-04 22:09] VITALS: BMI 39.0
--- NOTE | 2019-06-26 07:57 | VDLE_ITS ---
Reason For Study: Pain in left calf Procedure LEFT Exam performed in department. GSV is normal. A preliminary report was called and/or faxed CFV is compressible, spontaneous, phasic, to Inga. competent, and demonstrates normal augmentation. FV is compressible, spontaneous, phasic, competent and demonstrates normal augmentation. POP V is compressible, spontaneous, phasic, competent and demonstrates normal augmentation. T/P Trunk is compressible. PTV is compressible. LT PerV is compressible. Interpretation Summary Deep veins of the left lower extremity are patent and compressible segmentally. There is no evidence of left lower extremity deep vein thrombosis. Valvular competence appears intact within the proximal deep venous system on the left . The left greater saphenous vein appears patent and compressible segmentally. Ordering Physician: Josefina Xiong Referring Physician: Josefina Xiong Performed By: Yesi Guzman RVT
--- NOTE | 2019-06-26 14:11 | US_ITS ---
STUDY: ULTRASOUND OF THE FEMALE PELVIS - COMPLETE REASON FOR EXAM: Female, 83 years old. Edema. . TECHNIQUE: Transabdominal and Transvaginal TECHNICAL QUALITY: Adequate. COMPARISON: CT of the abdomen and pelvis, February 16, 2017. FINDINGS: The uterus is surgically absent. The right ovary is surgically absent There is no visualized right adnexal mass or complex lesion. The left ovary is surgically absent. There is no visualized left adnexal mass or complex lesion. There is no fluid in the cul-de-sac. The pre void volume of the bladder was 39 ml. The urinary bladder appears grossly normal. Polycystic ovary disease: No. US/Pelvic (Non ) IMPRESSION: As post hysterectomy. There is no visualized mass or other pelvic abnormality. Electronically Signed: Kevin Morales DO at 16:21 EDT Tel [phone], Service support ,
--- NOTE | 2019-06-26 15:21 | US_ITS ---
STUDY: ULTRASOUND OF THE FEMALE PELVIS - COMPLETE REASON FOR EXAM: Female, 83 years old. Edema. . TECHNIQUE: Transabdominal and Transvaginal TECHNICAL QUALITY: Adequate. COMPARISON: CT of the abdomen and pelvis, February 16, 2017. FINDINGS: The uterus is surgically absent. The right ovary is surgically absent There is no visualized right adnexal mass or complex lesion. The left ovary is surgically absent. There is no visualized left adnexal mass or complex lesion. There is no fluid in the cul-de-sac. The pre void volume of the bladder was 39 ml. The urinary bladder appears grossly normal. Polycystic ovary disease: No. US/Transvaginal Non- IMPRESSION: As post hysterectomy. There is no visualized mass or other pelvic abnormality. Electronically Signed: Kevin Morales DO at 16:21 EDT Tel [phone], Service support ,
== END ==
PROVIDERS: Family Provider Internal Medicine; PCP Internal Medicine; Referring Provider Internal Medicine; Visit Provider Internal Medicine
DX: M79.662 Pain in left lower leg (principal); R60.0 Localized edema
CPT/HCPCS: 76830; 76856; 93971

== ENCOUNTER 2019-07-19 14:31 | Emergency (ER) | payer MEDICARE, SELFPAY ==
[2019-07-19 14:32] VITALS: BP 147/85; PULSE 74; RESP 16; TEMP 36.2; O2SAT 99; BMI 39.0
--- NOTE | 2019-07-19 14:55 | CT_ITS ---
STUDY: CT BRAIN WITHOUT CONTRAST REASON FOR EXAM: Female, 83 years old. 2 day history of headaches and left-sided neck pain. No recent injury. RADIATION DOSAGE (If Supplied By Facility): CTDIvol = ( 60.81 ) mGy, DLP = ( 975.86 ) mGycm TECHNIQUE: Transaxial CT imaging of the brain was performed without administration of intravenous contrast material. Individualized dose optimization techniques were used for this CT. COMPARISON: Comparison is made with prior study dated June 04, 2019. FINDINGS: Normal soft tissue structures. Normal calvarium. There is mild cerebral atrophy with widening of the extra-axial spaces and ventricular dilatation. There are areas of decreased attenuation within the white matter tracts of the supratentorial brain, consistent with microvascular disease changes. Stable focal encephalomalacia in the vertex of the left parietal lobe. Normal basal ganglia and thalami. Normal brainstem. Normal cerebellum. There is no intracranial hemorrhage. There are no findings of an acute ischemic infarction. Atherosclerotic calcification of the vertebral arteries and cavernous portions of the internal carotid arteries bilaterally. Normal visualized paranasal sinuses. CT/Brain/Head without Contrast IMPRESSION: Chronic involutional changes of the brain. Electronically Signed: Young Giles, at 15:57 EDT , Service support ,
--- NOTE | 2019-07-19 14:55 | EKG12_ITS ---
Test Reason : Blood Pressure : / mmHG Vent. Rate : 071 BPM Atrial Rate : 071 BPM P-R Int : 232 ms QRS Dur : 108 ms QT Int : 388 ms P-R-T Axes : 009 004 -22 degrees QTc Int : 421 ms Sinus rhythm with 1st degree A-V block Low voltage QRS Inferior-posterior infarct , age undetermined Abnormal ECG Confirmed by BRUNO BARTLETT ([id number]), restaurant expeditor MAYRA VARGAS ([id number]) on 07/23/2019 2:26:23 PM Referred By: Confirmed By:BRUNO BARTLETT
--- NOTE | 2019-07-19 14:55 | CT_ITS ---
STUDY: CT CERVICAL SPINE WITHOUT CONTRAST REASON FOR EXAM: Female, 83 years old. Headaches and left-sided cervical pain following a recent fall. RADIATION DOSAGE (If Supplied By Facility): CTDIvol = ( 31.85 ) mGy, DLP = ( 533.30 ) mGycm TECHNIQUE: High resolution transaxial imaging was performed without contrast material. Sagittal and coronal images were reconstructed. Individualized dose optimization techniques were used for this CT. COMPARISON: Comparison is made with prior study dated June 04, 2019. FINDINGS: Normal craniovertebral junction. There are degenerative changes of the anterior atlantoaxial articulation. Normal odontoid process. There is straightening of the normal cervical lordosis. Normal vertebral bodies and posterior osseous elements. C2-3: Normal endplates. Normal disc height and morphology. Normal central canal and intervertebral neuroforamina. C3-4: Moderate degree of disc space narrowing. Facet joint osteoarthritis and hypertrophy on the left side. No significant stenosis is seen. C4-5: The disc space height is relatively well maintained. There is hypertrophy of the left facet joints. No significant stenosis is seen. C5-6: Moderate degree of disc space narrowing with spondylosis. Uncovertebral arthrosis. Bilateral neural foraminal stenosis. C6-7: Moderate degree of disc space narrowing with spondylosis and uncovertebral arthrosis as well as facet joint osteoarthritis. Mild degree of bilateral neural foraminal stenosis. Atherosclerotic calcification of the carotid bifurcations. Inhomogeneous enlargement of the left lobe of the thyroid with substernal extension. CT/Spine Cervical without Contras IMPRESSION: Multilevel degenerative changes, as described above. Stable examination. Electronically Signed: Young Giles, at 15:59 EDT , Service support ,
[2019-07-19] MEDS: diazePAM 5 MG Tablet PO (15:08)
[2019-07-19 15:18] VITALS: PULSE 73; RESP 20; O2SAT 95
[2019-07-19 15:23] LABS: Absolute Lymphocyte Count 2.16 X10^3/uL (0.83-4.51); Absolute Neutrophil Count 3.9 X10^3/uL (2.0-7.7); Basophil# 0.03 X10^3/uL; Basophil% 0.4 % (0-1); Eosinophil# 0.12 X10^3/uL; Eosinophils% 1.8 % (0-5); Hematocrit 40.5 % (37-47); Hemoglobin 13.2 g/dL (12.0-15.0); Lymphocyte # 2.16 X10^3/ul (4.0); Lymphocyte % 32.2 % (19-41); Mean Corp Hgb Conc 32.6 g/dL (32-36); Mean Corpuscular Hgb 31.1 pg (27.0-32.0); Mean Corpuscular Volume 95.5 fL (81-99); Mean Platelet Vol. 8.6 fl (6.2-12.0); Monocyte% 7.5 % (0-10); NRBC Flagged by Analyzer 0 % (0-5); Neutrophil # 3.88 X10^3/uL (2.7-7.7); Neutrophil % 57.8 % (47-70); Platelet Count 200 K/mm3 (150-450); RBC Distribution Width CV 12.9 % (11.6-14.6); RBC Distribution Width SD 45.1 fl (35.1-43.9); Red Blood Count 4.24 M/mm3 (4.2-5.4); White Blood Count 6.7 K/mm3 (4.4-11.0)
[2019-07-19 15:39] LABS: Anion Gap 3 (5-15); BUN 18 mg/dL (7-18); BUN/Creat Ratio 12.5 RATIO (10-20); Calcium,Total 9.4 mg/dL (8.5-10.1); Chloride 106 mmol/L (98-107); Creatinine, Serum 1.44 mg/dL (0.55-1.02); EST Glomerular Filtration Rate 37 mL/min (>60); Est Glom Filt Rate - Afr Amer 45 mL/min (>60); Estimated Creatinine Clearance 21.64 ml/min; Glucose 108 mg/dL (74-106); Potassium 4.2 mmol/L (3.5-5.1); Sodium Level 139 mmol/L (136-145)
--- NOTE | 2019-07-19 16:25 | ED.DCSUM_ITS ---
- ER Visit Summary Date of Service: 07/19/19 Chief Complaint: Neck pain History of Present Illness: The patient is a [address] Xiong. She reports that she had fallen June 04 and had a fracture to her left shoulder. She saw [facility] for this. It did not require surgery. She begin physical therapy approximately 2 weeks ago. Initially she was doing passive range of motion of her shoulder. She has been doing more active things over the past week. She reports that she has pain in the left side of her neck and left trapezius muscle that began 1 week ago. It is a sharp pain that is 10 out of 10 at worst and 5-10 currently. Is worse with movement of her left shoulder turning her head. She is taking hydrocodone, Flexeril without relief. Patient denies any relation to her hands. No numbness, tingling, or weakness. She denies any recent trauma. No fall or MVA. She is right-hand dominant. Review of systems: General: No fever, chills, cold sweats. Cardiovascular: No chest pain, palpitations. Respiratory: No cough, shortness of breath, dyspnea on exertion. Gastrointestinal: No abdominal pain, nausea, vomiting, diarrhea, melena, or hematochezia. Genitourinary: No dysuria, frequency, hematuria. Skin: No rash. Neuro: No headache, numbness, weakness. Physical Examination: Vitals: Stable. Afebrile. General: Well-nourished and well-developed. Head: Normocephalic atraumatic. Neck: Supple, no lymphadenopathy. No JVD. No vertebral tenderness. She does have moderate tenderness palpation over the left paraspinous musculature and the left trapezius muscle. There is also spasm present here. She has 5 out of 5 [employer] development bilaterally. 2+ dorsalis pedis pulse bilaterally. She has normal median, ulnar, and radial nerve function both motor and sensory distributions. She has normal sensation light touch in the C5-T1 distribution. Cardiovascular: Regular rate and rhythm. 2 out of 6 systolic murmur. Respiratory: No respiratory distress. Clear to auscultation bilaterally. Abdominal: Soft, nontender, nondistended, normal bowel sounds. No guarding, rebound, or peritoneal signs. Back: Nontender. Extremities: Nontender, no edema. No tenderness to palpation of the proximal humerus on the left. Skin: Normal color, no rash. Neurologic: Alert and oriented ?3. Cranial nerves II through XII are intact. Normal strength and sensation. Psych: Normal affect. Test Results: EKG is sinus at 71 with a first-degree AV block. Is unchanged from January of this year. Troponin is negative. Chem-7 shows a glucose of 108 and creatinine 1.44. Creatinine is range between 1.18 and 1.33 and 2019. CBC is normal. CT of her C-spine shows degenerative changes that are stable. CT brain shows chronic changes. Emergency Department Course and Treatment: Patient was given 5 mg of Valium p.o. On repeat exam she reports that her pain is significantly improved. Treatment Plan: Patient is instructed to stop her Flexeril. She will be prescribed 5 mg of Valium q. 8 as needed muscle spasm. Instructed to follow-up with orthopedics tomorrow as previously scheduled. Instructed follow-up Dr. Xiong in 3 to 5 days if not improving. Return to the emergency department for any worsening symptoms. Disposition: To home in improved and stable condition. Impression: 1. Neck pain, acute. This note was generated with [employer] dictation software. It may contain incorrect words, spelling, and punctuation that were not noted in review of the chart prior to signing ED Disposition - Plan for ED Patient: Instructions: NECK SPASM, No Trauma Prescriptions: Diazepam [Valium] 5 mg PO Q8 PRN #10 tab PRN Reason: Muscle Spasm Prescription Printed Referrals: Josefina Xiong DO [Primary Care Provider] - 3-5 Days if not improving Aung Rosado PA-C [PHYSICIAN DIRECTOR DIGITAL SALES] - Keep Jessie appointment
[2019-07-19 16:48] VITALS: BP 167/100; PULSE 64; RESP 18; O2SAT 99
--- NOTE | 2019-07-19 16:49 | ED.RN ---
PT GIVEN WRITTEN AND VERBAL DISCHARGE INSTRUCTIONS AND HOME GOING PRESCRIPTIONS. PT VERBALIZES UNDERSTANDING AND DENIES ANY FURTHER QUESTIONS. EDUCATED NOT TO DRIVE WHEN TAKING NARCOTIC MEDICATION. PT IV D/C AND COVERED WITH 2X2 GAUZE AND PAPER TAPE.
== END 2019-07-19 16:54 | disposition home or self-care (01) ==
LOC: ED 15:20
PROVIDERS: Emergency Provider Emergency Medicine; Family Provider Internal Medicine; PCP Internal Medicine
DX: M54.2 Cervicalgia (principal); I44.0 Atrioventricular block, first degree; R01.1 Cardiac murmur, unspecified
CPT/HCPCS: 70450; 72125; 80048; 84484; 85025; 93005; 99285; A4216

== ENCOUNTER → 2020-07-23 15:51 | Outpatient (CLI) | payer MEDICARE, SELFPAY ==
--- NOTE | 2020-07-23 15:55 | RAD_ITS ---
STUDY: X-RAY - ABDOMEN/PELVIS REASON FOR EXAM: Female, 84 years old. LEFT SIDE ABDOMINAL PAIN. DIARRHEA WITH CONSTIPATION FOR MONTHS NOW. HX OF APPENDECTOMY, TOTAL HYSTERECTOMY AND HAD HER GB REMOVED. TECHNIQUE: AP supine and upright views of the abdomen and pelvis. COMPARISON: None. FINDINGS: Normal visualized lung bases. There is an unremarkable bowel gas pattern. There is no demonstrated free abdominal air. Surgical clips are seen in the left upper quadrant of the abdomen. The visualized liver, spleen and kidneys are grossly normal in size and morphology. Normal soft tissue structures. There are degenerative changes of the visualized thoracic and lumbar spine. There are status post laminectomy changes of L4 and L5. There is a mild thoracolumbar dextroscoliosis. RAD/Abd Inc Decub and/or Erect IMPRESSION: Postoperative and degenerative changes of the visualized thoracolumbar spine. There is no evidence of ileus, obstruction, or free intraperitoneal air. Electronically Signed: Joni Ellington MD at 16:44 EDT , Service support ,
== END ==
PROVIDERS: PCP Internal Medicine; Referring Provider Internal Medicine Gastroenterology; Visit Provider Internal Medicine Gastroenterology
DX: R10.9 Unspecified abdominal pain (principal)
CPT/HCPCS: 74019

== ENCOUNTER 2021-04-10 12:31 | Inpatient (IN) | payer MEDICARE, SELFPAY ==
[2021-04-10] VITALS (9 sets, daily range): BP systolic 100–129; BP diastolic 53–82; PULSE 63–75; RESP 15–20; TEMP 36.8–37.7; O2SAT 91–94; BMI 41.8; BMI 40.5
--- NOTE | 2021-04-10 13:06 | EKG12_ITS ---
Test Reason : WEAKNESS Blood Pressure : / mmHG Vent. Rate : 067 BPM Atrial Rate : 067 BPM P-R Int : 240 ms QRS Dur : 112 ms QT Int : 426 ms P-R-T Axes : 044 000 -32 degrees QTc Int : 450 ms Sinus rhythm with 1st degree A-V block Low voltage QRS Incomplete right bundle branch block Nonspecific T wave abnormality Abnormal ECG Confirmed by MADELINE BARBA, LEE ([id number]), image editor MARISELA GODINEZ ([id number]) on 04/14/2021 1:57:59 PM Referred By: DORYS Confirmed By:LEE CORREA MD
--- NOTE | 2021-04-10 13:06 | CT_ITS ---
STUDY: CT BRAIN WITHOUT CONTRAST REASON FOR EXAM: Female, 85 years old. Trauma RADIATION DOSAGE (If Supplied By Facility): CTDIvol = ( 44.99 ) mGy, DLP = ( 745.49 ) mGycm TECHNIQUE: Transaxial CT imaging of the brain was performed without administration of intravenous contrast material. Individualized dose optimization techniques were used for this CT. COMPARISON: Comparison is made with prior study 07/19/2019. FINDINGS: Normal soft tissue structures. Normal calvarium. There is mild cerebral atrophy with widening of the extra-axial spaces and ventricular dilatation. There are areas of decreased attenuation within the white matter tracts of the supratentorial brain, consistent with microvascular disease changes. Normal basal ganglia and thalami. Normal brainstem. Normal cerebellum. There is no intracranial hemorrhage. There are no findings of an acute ischemic infarction. Atherosclerotic calcification of the cavernous portions of the internal carotid arteries bilaterally. Normal visualized paranasal sinuses. CT/Brain/Head without Contrast IMPRESSION: Chronic involutional changes of the brain. Electronically Signed: Young Giles MD at 13:54 EDT , Service support ,
--- NOTE | 2021-04-10 13:08 | EX.ED.DYSGE1 ---
HPI History of Present Illness Chief Complaint: Weakness Informant: patient, spouse/S.O. and EMS Onset/Context/Timing Onset: Days (3) Context: Gradual Onset Timing: Continuous Quality: weak Location: all over Current Severity: Severe Maximum Severity: Severe Worsened by: unk Relieved by: nothing Narrative Narrative: Patient had a urinary tract infection 3 weeks ago or so, she was on a week of antibiotics it did not seem to change anything. She now is on Pyridium to help with the dysuria, she followed up with urology and they did some studies but did not put her on any medications and is not currently on any antibiotics since she finished the above week-long course. She has been extremely weak especially this morning, she fell out of bed and was unable to get up at all. She states she felt completely helpless. Her went to get a bedside commode for her, and when he came back she was lying on the floor and could not get up so he called 911 to have her brought to the emergency department. She laid there for about an hour or 2. She states she thinks she bumped her head on the nightstand as she fell out of bed onto the carpeted floor, but she does not have a headache, she did not lose consciousness, no nausea or vomiting, mental status changes, or vision changes, no focal neurologic changes or symptoms. She denies any other injury. She has been having left lower quadrant abdominal pain for maybe several days, as well as nonbloody nonmelanotic diarrhea. She states her stool has been dark. States she had a fever up to 101 yesterday. She has never had COVID-19, she did have her vaccination completed. She denies any contact with anyone that she knows of with COVID-19 recently. [facility] Medical History (Updated 04/10/21 @ 15:[address] Alberto Ogden MD) DJD (degenerative joint disease), lumbar Essential (primary) hypertension GERD (gastroesophageal reflux disease) Hyperlipidemia IBS (irritable bowel syndrome) Left carotid artery stenosis New onset atrial fibrillation (01/10/19) Obesity Right bundle branch block (RBBB) Thyroid nodule Type 2 diabetes mellitus Home Medications cyclobenzaprine 10 mg PO TID PRN PRN 03/01/14 [History Last Taken 02/28/14] omeprazole 40 mg PO DAILY 06/08/16 [History Last Taken Unknown] ezetimibe 10 mg PO DAILY 07/18/17 [History Last Taken Unknown] rosuvastatin 10 mg PO QHS 07/18/17 [History Last Taken Unknown] nebivolol 10 mg PO QHS #0 01/11/19 [Rx Last Taken 04/17/14 22:00] aspirin 81 mg tablet,delayed release 81 mg PO DAILY 01/24/19 [History Last Taken Unknown] apixaban 5 mg PO BID 07/19/19 [History Last Taken Unknown] diazepam 5 mg PO Q8 PRN #10 tab 07/19/19 [Rx Last Taken Unknown] dicyclomine 10 mg PO DAILY PRN 07/19/19 [History Last Taken Unknown] fluticasone propionate 1 spray NASAL DAILY 07/19/19 [History Last Taken Unknown] hydrocodone-acetaminophen 1 - 2 ea PO Q6H 07/19/19 [History Last Taken Unknown] Allergy/AdvReac Type Severity Reaction Status Date / Time fentanyl AdvReac Other Verified 04/10/21 12:35 Sulfa (Sulfonamide AdvReac Other Verified 04/10/21 12:35 Antibiotics) Surgical History History of appendectomy History of back surgery History of hysterectomy History of tonsillectomy Hx of cholecystectomy S/P repair of paraesophageal hernia Status post biopsy of thyroid gland Social History Smoking Status: Never smoker ROS ROS ED Constitutional Constitutional ED: Reports fever(s), malaise and weakness; Denies chills Eyes Eyes: Denies change in vision or diplopia ENT ENT ED: Denies rhinorrhea or sore throat Cardiovascular Cardiovascular: Denies chest pain or palpitations Respiratory/Chest Respiratory/Chest: Denies cough or dyspnea Gastrointestinal Gastrointestinal: Reports as per HPI, abdominal pain and diarrhea; Denies nausea or vomiting Genitourinary Genitourinary ED: Reports dysuria; Denies hematuria Musculoskeletal Musculoskeletal: Reports back pain and other Details: back pain chronic, unchanged ; Denies neck pain Integumentary Denies abscess or rash Neurologic Neurologic: Denies headache(s), paresthesias or weakness Psychiatric Psychiatric: Denies anxiety or suicidal thoughts EXAM Physical Exam Const Vital Signs: 04/10/21 12:32 04/10/21 12:53 04/10/21 13:06 Temperature 99.8 F H 99.2 F H Temperature Source Oral Oral Pulse Rate 75 Respiratory Rate 18 Respiratory Pattern Normal Blood Pressure 129/67 H Blood Pressure Mean 87 Pulse Ox 93 Oxygen Delivery Method Room Air Room Air Fraction of Inspired Oxygen (FIO2) 93 04/10/21 13:14 04/10/21 14:27 04/10/21 14:29 Temperature 99.6 F H 99.5 F H Temperature Source Oral Oral Pulse Rate 67 63 Respiratory Rate 16 19 H Respiratory Pattern Blood Pressure 117/56 L Blood Pressure Mean 76 Pulse Ox 93 91 Oxygen Delivery Method Room Air Room Air Fraction of Inspired Oxygen (FIO2) 04/10/21 15:10 Temperature 98.4 F Temperature Source Oral Pulse Rate 64 Respiratory Rate 20 H Respiratory Pattern Blood Pressure 127/72 H Blood Pressure Mean 90 Pulse Ox 94 Oxygen Delivery Method Room Air Fraction of Inspired Oxygen (FIO2) Positive well nourished, well developed and obese General Appearance ED: well developed and NAD; Negative for cyanotic, lethargic or diaphoretic Nutritional Appearance: obese HEENT Reports moist mucous membranes normocephalic and atraumatic Eyes PERRL and EOMs intact bilaterally General Eye ED: Negative for scleral icterus Neck full ROM, no lymphadenopathy and supple Resp normal respiratory effort and clear to auscultation bilaterally Cardio regular rate, regular rhythm and no murmurs GI non-distended Auscultation: normoactive bowel sounds Palpation: soft and tender LLQ and LUQ; Negative for guarding or rebound tenderness present Back/Spine no CVA tenderness General Back: other FROM Extremity normal to inspection General Extremety ED: Negative for edema, pulses abnormal or tenderness General Extremity: Negative for edema or pulses abnormal Neuro oriented x3, CN's II-XII intact bilaterally and no sensory deficits noted Neuro Narrative: Able to move everything symmetrically, 4/5 strength throughout, consistent with generalized weakness without focal deficit Sensorium / Orientation: awake and alert Psych mental status grossly normal and thought process normal Skin no rashes or lesions noted and no wounds MDM MDM MDM Narrative Medical decision making narrative: As below, work-up showing diverticulitis as well as a urinary tract infection. She is extremely weak and should be admitted to the hospital clinically but she does not meet criteria for sepsis at this time. IV Cipro and Flagyl are given, plan is for admission. Lab Data Attestation: I reviewed the patient's lab results. Labs: Laboratory Results - last 24 hr 04/10/21 04/10/21 04/10/21 12:45 12:45 12:45 WBC 8.7 RBC 3.19 L Hgb 10.1 L Hct 31.1 L MCV 97.5 MCH 31.7 MCHC 32.5 RDW Std Deviation 51.9 H RDW Coeff of Keysha 14.6 Plt Count 191 MPV 9.4 Immature Gran % (Auto) 0.500 Neut % (Auto) 80.2 H Lymph % (Auto) 11.6 L [place] % (Auto) 7.0 Eos % (Auto) 0.5 Baso % (Auto) 0.2 Absolute Neuts (auto) 7.0 Absolute Lymphs (auto) 1.01 Nucleated RBC % 0 PT 14.5 INR 1.2 APTT 25.4 Sodium 136 Potassium 3.2 L Chloride 105 Carbon Dioxide 23.0 Anion Gap 8 BUN 17 Creatinine 1.64 H Estim Creat Clear Calc 18.34 Est GFR (MDRD) Af Amer 38 L Est GFR (MDRD) Non-Af 32 L BUN/Creatinine Ratio 10.4 Glucose 124 H Lactic Acid Calcium 8.4 L Total Bilirubin 1.30 H AST 20 ALT 9 L Alkaline Phosphatase 55 Total Creatine Kinase 59 Troponin I < 0.015 Total Protein 6.2 L Albumin 2.8 L Globulin 3.4 Albumin/Globulin Ratio 0.8 L Urine Color Urine Clarity Urine pH Ur Specific [place] Urine Protein Urine Glucose (UA) Urine Ketones Urine Occult Blood Urine Nitrite Urine Bilirubin Urine Urobilinogen Ur Leukocyte Esterase Urine RBC Urine WBC Ur Squamous Epith Cells Urine Bacteria Urine Mucus 04/10/21 04/10/21 12:45 14:10 WBC RBC Hgb Hct MCV MCH MCHC RDW Std Deviation RDW Coeff of [place] Plt Count MPV Immature Gran % (Auto) Neut % (Auto) Lymph % (Auto) [place] % (Auto) Eos % (Auto) Baso % (Auto) Absolute Neuts (auto) Absolute Lymphs (auto) Nucleated RBC % PT INR APTT Sodium Potassium Chloride Carbon Dioxide Anion Gap BUN Creatinine Estim Creat Clear Calc Est GFR (MDRD) Af Amer Est GFR (MDRD) Non-Af BUN/Creatinine Ratio Glucose Lactic Acid 1.6 Calcium Total Bilirubin AST ALT Alkaline Phosphatase Total Creatine Kinase Troponin I Total Protein Albumin Globulin Albumin/Globulin Ratio Urine Color SEE COMMENT BELOW Urine Clarity Cloudy Urine pH 5.0 Ur Specific [place] 1.010 Urine Protein 30 H Urine Glucose (UA) Normal Urine Ketones Negative Urine Occult Blood 50 H Urine Nitrite Positive H Urine Bilirubin 3 H Urine Urobilinogen 8 H Ur Leukocyte Esterase 500 H Urine RBC 0-5 SEEN Urine WBC >100 SEEN Ur Squamous Epith Cells 0 SEEN Urine Bacteria 1+ Urine Mucus 0 SEEN Radiography Chest X-Ray - ED: 1 View, Read by ED Physician, No Acute Disease and No Infiltrates Diagnostic Testing: Radiology Impression Brain CT 04/10/21 13:06 IMPRESSION: Chronic involutional changes of the brain. Electronically Signed: Young Giles MD at 13:54 EDT , Service support , Chest X-Ray 04/10/21 13:11 IMPRESSION: No acute thoracic pathology. Electronically Signed: Gage Lux MD at 13:31 EDT Tel , Service support , Abdomen/Pelvis CT 04/10/21 13:14 IMPRESSION: Mild acute sigmoid diverticulitis. No free air, free fluid or fluid collection. Electronically Signed: Gage Lux MD at 14:06 EDT Tel , Service support , EKG Initial EKG: Attestation: I personally reviewed and interpreted this EKG as follows: Interpretation: Sinus Rhythm, RBBB (incomplete) and AV Block (First-degree) Prior EKG tracings: available for review Prior: Unchanged Discharge Plan Dx/Rx/DC Orders Clinical Impression: Diverticulitis of sigmoid colon, Acute UTI, Generalized weakness, Unable to ambulate, Acute hypokalemia Disposition Disposition: Acute Care [facility]
--- NOTE | 2021-04-10 13:11 | RAD_ITS ---
STUDY: X-RAY CHEST REASON FOR EXAM: Female, 85 years old. Fever TECHNIQUE: Frontal view of the chest COMPARISON: 05/15/19 FINDINGS: The lungs are clear. There are no pleural effusions. There is no pneumothorax. The heart is normal in size. The visualized osseous structures are within normal limits. RAD/Chest 1 View (Portable) IMPRESSION: No acute thoracic pathology. Electronically Signed: Gage uLx MD at 13:31 EDT Tel , Service support ,
--- NOTE | 2021-04-10 13:14 | CT_ITS ---
STUDY: CT ABDOMEN AND PELVIS WITHOUT CONTRAST REASON FOR EXAM: Female, 85 years old. Left-sided pain. Recent UTI. RADIATION DOSAGE (If Supplied By Facility): CTDIvol = ( 17.45 ) mGy, DLP = ( 980.31 ) mGycm TECHNIQUE: Transaxial images were obtained from the dome of the diaphragm to the symphysis pubis without oral contrast, and without intravenous contrast. Sagittal and coronal images were reconstructed. Individualized dose optimization techniques were used for this CT. COMPARISON: 02/16/17 FINDINGS: Evaluation of the abdominal viscera is limited in the absence of intravenous contrast. The visualized lung bases are clear. The visualized portions of the heart and pericardium are within normal limits. The patient is status post cholecystectomy. The liver demonstrates an unremarkable unenhanced appearance. The spleen is normal in size. The pancreas demonstrates an unremarkable unenhanced appearance. The adrenal glands are within normal limits. There are no renal or ureteral stones. There is no hydronephrosis. There are stable postsurgical changes in the stomach. There is no bowel obstruction. There are mild inflammatory changes in the left lower quadrant adjacent to inflamed diverticula in the sigmoid colon. This is consistent with mild acute sigmoid diverticulitis. The appendix is not visualized, but there are no findings to suggest acute appendicitis. The aorta is normal in caliber. Again noted are atherosclerotic calcifications in the aorta. There is no abdominal or pelvic free air, free fluid, fluid collection or lymphadenopathy. There are no destructive osseous lesions. There are stable degenerative changes in the spine. CT/Abdomen/Pelvis without Cont IMPRESSION: Mild acute sigmoid diverticulitis. No free air, free fluid or fluid collection. Electronically Signed: Gage Lux MD at 14:06 EDT Tel , Service support ,
[2021-04-10 13:38] LABS: Absolute Lymphocyte Count 1.01 X10^3/uL (0.83-4.51); Basophil# 0.02 X10^3/uL; Basophil% 0.2 % (0-1); Eosinophil# 0.04 X10^3/uL; Eosinophils% 0.5 % (0-5); Hematocrit 31.1 % (37-47); Hemoglobin 10.1 g/dL (12.0-15.0); Lymphocyte # 1.01 X10^3/ul (0.83-4.51); Lymphocyte % 11.6 % (19-41); Mean Corp Hgb Conc 32.5 g/dL (32-36); Mean Corpuscular Hgb 31.7 pg (27.0-32.0); Mean Corpuscular Volume 97.5 fL (81-99); Mean Platelet Vol. 9.4 fl (6.2-12.0); Monocyte# 0.61 X10^3/uL; NRBC Flagged by Analyzer 0 % (0-5); Neutrophil # 6.99 X10^3/uL (2.7-7.7); Neutrophil % 80.2 % (47-70); Platelet Count 191 K/mm3 (150-450); RBC Distribution Width CV 14.6 % (11.6-14.6); RBC Distribution Width SD 51.9 fl (35.1-43.9); Red Blood Count 3.19 M/mm3 (4.2-5.4); White Blood Count 8.7 K/mm3 (4.4-11.0)
[2021-04-10 13:44] LABS: International Normalized Ratio 1.2; Prothrombin Time (Protime)PT. 14.5 SECONDS (11.7-14.9)
[2021-04-10 13:45] LABS: Partial Thromboplast Time 25.4 Seconds (24.1-36.2)
[2021-04-10 13:55] LABS: Lactic Acid 1.6 mmol/L (0.4-1.9)
[2021-04-10 13:58] LABS: ALB/GLOB Ratio 0.8 RATIO (0.9-2.4); AST(SGOT) 20 U/L (15-37); Alanine Aminotransfer ALT/SGPT 9 U/L (13-56); Albumin, Serum 2.8 g/dL (3.2-5.0); Alkaline Phosphatase 55 U/L (45-117); Anion Gap 8 (5-15); BUN 17 mg/dL (7-18); BUN/Creat Ratio 10.4 RATIO (10-20); CPK Total, Creatine Kinase 59 U/L (26-192); Calcium,Total 8.4 mg/dL (8.5-10.1); Chloride 105 mmol/L (98-107); Creatinine, Serum 1.64 mg/dL (0.55-1.02); EST Glomerular Filtration Rate 32 mL/min (>60); Est Glom Filt Rate - Afr Amer 38 mL/min (>60); Estimated Creatinine Clearance 18.34 ml/min; Globulin 3.4 g/dL (2.2-4.2); Glucose 124 mg/dL (74-106); Potassium 3.2 mmol/L (3.5-5.1); Protein, Total 6.2 g/dL (6.4-8.2); Sodium Level 136 mmol/L (136-145)
[2021-04-10 14:13] LABS: Mucous, Urine 0 SEEN /hpf (<or=2+); Squamous Epithelial Cells - UA 0 SEEN /hpf (5-10)
[2021-04-10 14:14] LABS: Glucose, Dipstick Normal (Normal); Ketone-Dipstick Negative (Negative); Leukocyte Esterase-Dipstick 500 /ul (Negative); Nitrite-Dipstick Positive (Negative); Occult Blood-Urine 50 /ul (Negative); Protein-Dipstick 30 mg/dl (Negative); Urine Clarity Cloudy (Clear); Urine Urobilinogen 8 mg/dl (Normal)
[2021-04-10] MEDS: 0.9% Normal Saline 1,000 ML 150 ML IV (14:16)
[2021-04-10 14:19] LABS: Color, Urine SEE COMMENT BELOW (Yellow); Urine Bilirubin Dipstick 3 mg/dL (Negative)
[2021-04-10 14:24] LABS: Bacteria 1+ /hpf (None Seen); White Blood Cells >100 SEEN /hpf (0-5)
[2021-04-10 14:25] LABS: Red Blood Cells-Urine 0-5 SEEN /hpf (0-5)
[2021-04-10] MEDS: metroNIDAZOLE 500 MG/100 ML BAG 100 MG IV ×2 (16:01→22:57)
--- NOTE | 2021-04-10 16:24 | HP.PCM.HOS_ITS ---
Documented by User: Amor BARILLAS 04/10/21 16:56 HPI - General General Date of Admission: 04/10/21 HPI Narrative Patient is a 85-year-old female who presents to the ED at [facility] on 04/10/2021 with a chief complaint of lower abdominal pain and diarrhea x 1 month. Patient was previously seen by her primary care provider and urologist who prescribed a 1 week course of antibiotics, which did not resolve the patient's pain after completing the course. Patient also endorses a urinary tract infection that causes scant hematuria and pain on urination. This morning patient awoke out of bed with severe abdominal pain and weakness. Patient was attempting to use bedside commode, at which point she fell on the floor due to weakness and pain. Patient also reports that she may have hit her head on on the nightstand when she fell out of bed. Denies headache, loss of consciousness, mental status or vision changes, numbness, weakness, tingling. Patient reports that her diarrhea has been dark and watery. Patient also endorses fevers and chills. Denies chest pain, shortness of breath, palpitations, hemoptysis or sputum production. Past medical history is significant for hypertension, GERD, hyperlipidemia, irritable bowel syndrome, TIA, DM 2, atrial fibrillation, degenerative disc disease and chronic low back pain. Vital signs stable and patient is temperature is 98.6 ?F. CBC is unremarkable and demonstrates no leukocytosis. BMP is significant for hypokalemia at 3.2 and elevated creatinine at 1.64. UA is significant for posi tive nitrites, 500 leukocyte esterase and 1+ bacteria. Brain CT only showed chronic changes of the brain and demonstrated no intracranial hemorrhage. Chest x-ray is unremarkable and demonstrates no acute cardiopulmonary process. CT of the abdomen/pelvis demonstrates mild acute sigmoid diverticulitis. No free air, free fluid or fluid collection seen on CT. Patient initiated on ciprofloxacin and Flagyl in the ED. Patient will be admitted to medical surgical floor 3 for observation. [facility] Medical History (Updated 04/10/21 @ 16:43 by Amor BARILLAS) DJD (degenerative joint disease), lumbar Essential (primary) hypertension Former smoker GERD (gastroesophageal reflux disease) Hyperlipidemia IBS (irritable bowel syndrome) Left carotid artery stenosis New onset atrial fibrillation (01/10/19) Obesity Right bundle branch block (RBBB) Thyroid nodule TIA (transient ischemic attack) Type 2 diabetes mellitus Home Medications omeprazole 40 mg PO DAILY 06/08/16 [History Last Taken 04/09/21] ezetimibe 10 mg PO DAILY 07/18/17 [History Last Taken 04/09/21] rosuvastatin 10 mg PO QHS 07/18/17 [History Last Taken 04/09/21] nebivolol 10 mg PO QHS #0 01/11/19 [Rx Last Taken 04/09/21] hydrocodone-acetaminophen 1 - 2 ea PO Q6H 07/19/19 [History Last Taken 04/09/21] gabapentin 100 mg PO TID 04/10/21 [History Last Taken 04/09/21] Allergy/AdvReac Type Severity Reaction Status Date / Time fentanyl AdvReac Other Verified 04/10/21 12:35 Sulfa (Sulfonamide AdvReac Other Verified 04/10/21 12:35 Antibiotics) Surgical History History of appendectomy History of back surgery History of hysterectomy History of tonsillectomy Hx of cholecystectomy S/P repair of paraesophageal hernia Status post biopsy of thyroid gland Social History Smoking Status: Former smoker ROS Constitutional Constitutional: Reports chills, fatigue, fever(s), malaise and weakness Eyes Eyes: Denies blurry vision, change in eye color, change in vision, discharge from eye(s), double vision, erythema, eye pain, loss of vision or other ENT HEENT: Denies abnormal hearing, dysphagia, ear pain, epistaxis, headache(s), he aring loss, nasal congestion, nasal discharge, post nasal drip, sinus pressure, sore throat or other Cardiovascular Cardiovascular: Denies chest pain, claudication, dyspnea on exertion, edema, lightheadedness, orthopnea, palpitations, paroxysmal nocturnal dyspnea, rapid heart rate, syncope or other Respiratory/Chest Respiratory/Chest: Denies cough, dyspnea, excessive phlegm production, hemoptysis, productive cough, shortness of breath at rest, shortness of breath with exertion, wheezing or other Gastrointestinal Gastrointestinal: Reports abdominal pain, diarrhea and loose stools; Denies coffee ground emesis, constipation, dyspepsia, hematemesis, hematochezia, melena, nausea, vomiting or other Genitourinary Genitourinary: Reports burning urination, difficulty urinating, dysuria, hematuria, urinary frequency and urinary urgency; Denies nocturia, urinary hesitancy, urinary incontinence or other Musculoskeletal Musculoskeletal: Denies arthralgias, back pain, joint pain, joint stiffness, joint swelling, myalgias, neck pain or other Neurologic Neurologic: Denies abnormal gait, abnormal speech, confusion, disequilibrium, dizziness, focal weakness, headache(s), numbness, paresthesias, seizure-like activity, seizures, syncope, tingling, tremor(s) or other Psychiatric Psychiatric: Denies anxiety, depression, homicidal ideation, suicidal ideation or other Endocrine Endocrinology: Denies change in body appearance, cold intolerance, excessive sweating, heat intolerance, polydipsia, polyuria or other Hematologic/Lymphatic Hematologic/Lymphatic: Denies anemia, easy bleeding, easy bruising, lymphadenopathy or other Allergic/Immunologic Allergic/Immunologic: Denies rhinitis, hives, eczemia, asthma or other Vital Signs Vital Signs Vital Signs: 04/10/21 12:32 04/10/21 12:53 04/10/21 13:06 Temperature 99.8 F H 99.2 F H Temperature Source Oral Oral Pulse Rate 75 Respiratory Rate 18 Respiratory Pattern Normal Blood Pressure 129/67 H Blood Pressure Mean 87 Pulse Ox 93 Oxygen Delivery Method Room Air Room Air Fraction of Inspired Oxygen (FIO2) 93 04/10/21 13:14 04/10/21 14:27 04/10/21 14:29 Temperature 99.6 F H 99.5 F H Temperature Source Oral Oral Pulse Rate 67 63 Respiratory Rate 16 19 H Respiratory Pattern Blood Pressure 117/56 L Blood Pressure Mean 76 Pulse Ox 93 91 Oxygen Delivery Method Room Air Room Air Fraction of Inspired Oxygen (FIO2) 04/10/21 15:10 04/10/21 16:18 Temperature 98.4 F 98.6 F Temperature Source Oral Oral Pulse Rate 64 67 Respiratory Rate 20 H 19 H Respiratory Pattern Blood Pressure 127/72 H 118/72 Blood Pressure Mean 90 87 Pulse Ox 94 93 Oxygen Delivery Method Room Air Room Air Fraction of Inspired Oxygen (FIO2) Weight Weight: 214 lb 4.629 oz Body Mass Index (BMI) 41.8 Physical Exam Const alert, oriented x3 and no apparent distress General Appearance: cooperative HEENT normocephalic, head/scalp atraumatic and hearing grossly normal bilaterally Eyes PERRL, EOMs intact bilaterally and conjunctivae normal Neck no lymphadenopathy, supple and no JVD Resp normal respiratory effort, no retractions, no use of accessory muscles and clear to auscultation bilaterally Cardio regular rate, regular rhythm, no murmurs and no JVD GI normal to inspection, nondistended, normoactive bowel sounds and soft to palpation Palpation: tender other (Tender to palpation about the right and left lower quadrants.) Extremity normal to inspection, full ROM and no clubbing, cyanosis or edema Skin no rashes or lesions noted, no wounds and skin turgor normal Neuro CN's II-XII intact bilaterally Psych affect normal Lab / Micro Data Result Diagrams: 04/10/21 12:45 04/10/21 12:45 Labs: Laboratory Results - last 24 hr 04/10/21 04/10/21 04/10/21 12:45 12:45 12:45 WBC 8.7 RBC 3.19 L Hgb 10.1 L Hct 31.1 L MCV 97.5 MCH 31.7 MCHC 32.5 RDW Std Deviation 51.9 H RDW Coeff of Keysha 14.6 Plt Count 191 MPV 9.4 Immature Gran % (Auto) 0.500 Neut % (Auto) 80.2 H Lymph % (Auto) 11.6 L [place] % (Auto) 7.0 Eos % (Auto) 0.5 Baso % (Auto) 0.2 Absolute Neuts (auto) 7.0 Absolute Lymphs (auto) 1.01 Nucleated RBC % 0 PT 14.5 INR 1.2 APTT 25.4 Sodium 136 Potassium 3.2 L Chloride 105 Carbon Dioxide 23.0 Anion Gap 8 BUN 17 Creatinine 1.64 H Estim Creat Clear Calc 18.34 Est GFR (MDRD) Af Amer 38 L Est GFR (MDRD) Non-Af 32 L BUN/Creatinine Ratio 10.4 Glucose 124 H Lactic Acid Calcium 8.4 L Total Bilirubin 1.30 H AST 20 ALT 9 L Alkaline Phosphatase 55 Total Creatine Kinase 59 Troponin I < 0.015 Total Protein 6.2 L Albumin 2.8 L Globulin 3.4 Albumin/Globulin Ratio 0.8 L Urine Color Urine Clarity Urine pH Ur Specific [place] Urine Protein Urine Glucose (UA) Urine Ketones Urine Occult Blood Urine Nitrite Urine Bilirubin Urine Urobilinogen Ur Leukocyte Esterase Urine RBC Urine WBC Ur Squamous Epith Cells Urine Bacteria Urine Mucus 04/10/21 04/10/21 12:45 14:10 WBC RBC Hgb Hct MCV MCH MCHC RDW Std Deviation RDW Coeff of Keysha Plt Count MPV Immature Gran % (Auto) Neut % (Auto) Lymph % (Auto) [place] % (Auto) Eos % (Auto) Baso % (Auto) Absolute Neuts (auto) Absolute Lymphs (auto) Nucleated RBC % PT INR APTT Sodium Potassium Chloride Carbon Dioxide Anion Gap BUN Creatinine Estim Creat Clear Calc Est GFR (MDRD) Af Amer Est GFR (MDRD) Non-Af BUN/Creatinine Ratio Glucose Lactic Acid 1.6 Calcium Total Bilirubin AST ALT Alkaline Phosphatase Total Creatine Kinase Troponin I Total Protein Albumin Globulin Albumin/Globulin Ratio Urine Color SEE COMMENT BELOW Urine Clarity Cloudy Urine pH 5.0 Ur Specific [place] 1.010 Urine Protein 30 H Urine Glucose (UA) Normal Urine Ketones Negative Urine Occult Blood 50 H Urine Nitrite Positive H Urine Bilirubin 3 H Urine Urobilinogen 8 H Ur Leukocyte Esterase 500 H Urine RBC 0-5 SEEN Urine WBC >100 SEEN Ur Squamous Epith Cells 0 SEEN Urine Bacteria 1+ Urine Mucus 0 SEEN Micro: Microbiology 04/10/21 13:25 SARS-CoV-2 Antigen (Rapid) - Final Interface Orders Radiology Impression Brain CT 04/10/21 13:06 IMPRESSION: Chronic involutional changes of the brain. Electronically Signed: Young Giles MD at 13:54 EDT , Service support , Chest X-Ray 04/10/21 13:11 IMPRESSION: No acute thoracic pathology. Electronically Signed: Gage Lux MD at 13:31 EDT Tel , Service support , Abdomen/Pelvis CT 04/10/21 13:14 IMPRESSION: Mild acute sigmoid diverticulitis. No free air, free fluid or fluid collection. Electronically Signed: Gage Lux MD at 14:06 EDT Tel , Service support , Assessment & Plan Assessment/Plan (1) Diverticulitis of sigmoid colon: (2) Acute UTI: (3) Generalized weakness: (4) Unable to ambulate: (5) Acute hypokalemia: (6) Hyperlipidemia: (7) New onset atrial fibrillation: (8) Essential (primary) hypertension: (9) Hypertension: (10) Chronic back pain: (11) Hypokalemia: PLAN: Patient is an 85-year-old female who presents to the ED at [facility] on 04/10/2021 with a chief complaint of abdominal pain and diarrhea x1 month. Patient also endorses pain with urination and scant hematuria. Patient will be admitted for management of acute sigmoid diverticulitis and UTI. Patient is a 85-year-old female who presents to the ED at [facility] on 04/10/2021 with a chief complaint of lower abdominal pain and diarrhea x 1 month. Patient was previously seen by her primary care provider an d urologist who prescribed a 1 week course of antibiotics, which did not resolve the patient's pain after completing the course. Patient also endorses a urinary tract infection that causes scant hematuria and pain on urination. This morning patient awoke out of bed with severe abdominal pain and weakness. Patient was attempting to use bedside commode, at which point she fell on the floor due to weakness and pain. Patient also reports that she may have hit her head on on the nightstand when she fell out of bed. Denies headache, loss of consciousness, mental status or vision changes, numbness, weakness, tingling. Patient reports that her diarrhea has been dark and watery. Patient also endorses fevers and chills. Denies chest pain, shortness of breath, palpitations, hemoptysis or sputum production. Past medical history is significant for hypertension, GERD, hyperlipidemia, irritable bowel syndrome, TIA, DM 2, atrial fibrillation, degenerative disc disease and chronic low back pain. Vital signs stable and patient is temperature is 98.6 ?F. CBC is unremarkable and demonstrates no le ukocytosis. BMP is significant for hypokalemia at 3.2 and elevated creatinine at 1.64. Brain CT only showed chronic changes of the brain and demonstrated no intracranial hemorrhage. Chest x-ray is unremarkable and demonstrates no acute cardiopulmonary process. CT of the abdomen/pelvis demonstrates mild acute sigmoid diverticulitis. No free air, free fluid or fluid collection seen on CT. Patient initiated on ciprofloxacin and Flagyl in the ED. Patient will be admitted to medical surgical floor 3 for observation. 1) Acute sigmoid diverticulitis Patient endorses a 1 with history of abdominal pain, diarrhea, fevers and chills. Previously put on an antibiotic by her primary care provider, which did not resolve her symptoms. CT of the abdomen/pelvis demonstrates mild acute sigmoid diverticulitis, no free air, free fluid or fluid collection seen. CBC does not demonstrate a leukocytosis. Vital signs stable and patient is afebrile. Plan[facility], continue ciprofloxacin and metronidazole, Tylenol 650 p.o. every 6, Zofran as needed, C. difficile panel ordered, enteric stool panel ordered, IV fluids ordered, monitor CBC and BMP. 2) UTI Patient endorses a 1 month history of scant hematuria and pain on urination. UA in the ED is significant for positive nitrites, 500 leukocyte esterase and 1+ bacteria. Previously seen by a urologist who put patient on 1 week history of antibiotics, which did not resolve patient symptoms. Plan; as above. 3) Hypokalemia Currently 3.2. Likely secondary to #1. Plan; IV potassium 40 mEq x 1., Monitor BMP. 4) HTN Stable, continue nebivolol. 5) Hyperlipidemia Continue rosuvastatin and ezetimibe. 6) DDD/Chronic back pain Managed outpatient. Plan; continue gabapentin and hydrocodone. DVT prophylaxis - SCD's CODE STATUS: Full code Patient seen by Amor Rivero PA-C, under the supervision of Dr. Yoder. Documented by User: Dr. Luana Yoder MD 04/10/21 19:21 HPI - General General Date of Admission: 04/10/21 [facility] Medical History (Updated 04/10/21 @ 16:43 by Amor BARILLAS) DJD (degenerative joint disease), lumbar Essential (primary) hypertension Former smoker GERD (gastroesophageal reflux disease) Hyperlipidemia IBS (irritable bowel syndrome) Left carotid artery stenosis New onset atrial fibrillation (01/10/19) Obesity Right bundle branch block (RBBB) Thyroid nodule TIA (transient ischemic attack) Type 2 diabetes mellitus Home Medications omeprazole 40 mg PO DAILY 06/08/16 [History Last Taken 04/09/21] ezetimibe 10 mg PO DAILY 07/18/17 [History Last Taken 04/09/21] rosuvastatin 10 mg PO QHS 07/18/17 [History Last Taken 04/09/21] nebivolol 10 mg PO QHS #0 01/11/19 [Rx Last Taken 04/09/21] hydrocodone-acetaminophen 1 - 2 ea PO Q6H 07/19/19 [History Last Taken 04/09/21] gabapentin 100 mg PO TID 04/10/21 [History Last Taken 04/09/21] Allergy/AdvReac Type Severity Reaction Status Date / Time fentanyl AdvReac Other Verified 04/10/21 12:35 Sulfa (Sulfonamide AdvReac Other Verified 04/10/21 12:35 Antibiotics) Surgical History History of appendectomy History of back surgery History of hysterectomy History of tonsillectomy Hx of cholecystectomy S/P repair of paraesophageal hernia Status post biopsy of thyroid gland Social History Smoking Status: Former smoker Lab / Micro Data Result Diagrams: 04/10/21 12:45 04/10/21 12:45 Addendum Addendum: This patient was seen in conjunction with ERAN Kerr. I have independently interviewed and examined the patient and reviewed pertinent historical, laboratory, and other data. Please refer to ERAN Kerr's note for his patient's presentation, findings, and recommendations. I have reviewed and his note and concur with his documentation 85-year-old female with past medical history of paroxysmal atrial fibrillation, hypertension who comes in with complaints of urinary symptoms?dysuria, frequency, suprapubic discomfort ongoing for about 3 to 4 weeks. Patient was previously seen by primary care doctor and urologist and prescribed a week co urse of antibiotics that did not resolve her pain. She woke up this morning with left-sided abdominal discomfort and weakness. She attempted to use a bedside commode and fell down on account of severe weakness. She did hit her head on the nightstand. She denied any headaches or dizziness or palpitation at time of being seen. She admits to being worried about her urinary symptoms more than anything else. Denied any diarrhea or nausea or vomiting. Physical Exam: Gen:Comfortable, not pale, not jaundiced, obese CVS:HS I +II, regular, no murmurs RESP: Diminished at lung bases GI: BS present and normal, soft, nontender, no palpable organs EXT:No edema ASSESSMENT: 1. Acute diverticulitis 2. Acute symptomatic UTI 3. Hypokalemia 4. Hypertension 5. Chronic back pain 6. Paroxysmal atrial fibrillation 7. Anemia, microcytic microchromic, drop in counts from 13.2 in 2019 to 10.1 today 8. Morbid obesity Lab: WBC count is 8.7 CT of abdomen and pelvis shows mild acute sigmoid diverticulitis Chest x-ray is unremarkable Brain CT shows chronic inflammatory changes Plan: Continue on IV antibiotics - IV cipro and Flagyl, IV fluids, cardiac diet Follow-up on urine and blood cultures Check iron stores Replace potassium, check magnesium Continue nebivolol, gabapentin, Vicodin I discussed and explained in details the various types of CODE STATUS-full code, DNR CCA, DNR CC. Patient chose Full code. She wants aggressive measures in the event of a cardiopulmonary arrest. Time spent discussing CODE STATUS 16 minutes Visit Charges Inpatient E&M: 01348 Init Hosp L3 Procedures Hospitalists Procedures: 42700 Advncd Care Plan 30 Min
[2021-04-10] MEDS: Ciprofloxacin 400 MG/200 ML BAG 200 MG IV (17:45)
[2021-04-10] MEDS: Potassium Chloride 10mEq/100mL 10 MEQ/100 ML IV.SOLN. 100 MEQ IV BOLUS ×4 (19:49→23:45)
[2021-04-10 20:21] LABS: Ferritin 122 ng/mL (8-252); Iron 40 ug/dL (50-170); Iron Binding Capacity,Total 363 ug/dL (250-450); Magnesium 1.4 mg/dL (1.6-2.6)
[2021-04-10] MEDS: 0.9% Normal Saline 1,000 ML 100 ML IV (22:40)
[2021-04-10] MEDS: Nebivolol HCl 10 MG Tablet PO (22:57)
[2021-04-10] MEDS: Atorvastatin Calcium 20 MG Tablet PO (22:57)
[2021-04-11] MEDS: HYDROcodone Bitartrate/Apap 5/325 Tablet PO ×4 (00:55→23:47)
[2021-04-11 04:35] VITALS: BP 127/67; PULSE 69; RESP 20; TEMP 36.7; O2SAT 93
[2021-04-11] MEDS: Gabapentin 100 MG Capsule PO ×3 (06:25→21:17)
[2021-04-11] MEDS: metroNIDAZOLE 500 MG/100 ML BAG 100 MG IV ×3 (06:25→21:17)
[2021-04-11 08:04] LABS: Absolute Lymphocyte Count 1.67 X10^3/uL (0.83-4.51); Absolute Neutrophil Count 5.2 X10^3/uL (2.0-7.7); Basophil# 0.03 X10^3/uL; Basophil% 0.4 % (0-1); Eosinophil# 0.07 X10^3/uL; Eosinophils% 0.9 % (0-5); Hematocrit 28.3 % (37-47); Hemoglobin 8.9 g/dL (12.0-15.0); Lymphocyte # 1.67 X10^3/ul (0.83-4.51); Lymphocyte % 21.7 % (19-41); Mean Corp Hgb Conc 31.4 g/dL (32-36); Mean Corpuscular Hgb 30.7 pg (27.0-32.0); Mean Corpuscular Volume 97.6 fL (81-99); Mean Platelet Vol. 9.7 fl (6.2-12.0); Monocyte% 9.1 % (0-10); NRBC Flagged by Analyzer 0 % (0-5); Neutrophil # 5.21 X10^3/uL (2.7-7.7); Neutrophil % 67.6 % (47-70); Platelet Count 179 K/mm3 (150-450); RBC Distribution Width CV 15.1 % (11.6-14.6); RBC Distribution Width SD 53.6 fl (35.1-43.9); White Blood Count 7.7 K/mm3 (4.4-11.0)
[2021-04-11 08:25] LABS: ALB/GLOB Ratio 0.8 RATIO (0.9-2.4); AST(SGOT) 19 U/L (15-37); Alanine Aminotransfer ALT/SGPT 10 U/L (13-56); Albumin, Serum 2.5 g/dL (3.2-5.0); Alkaline Phosphatase 54 U/L (45-117); Anion Gap 6 (5-15); BUN 14 mg/dL (7-18); BUN/Creat Ratio 10.6 RATIO (10-20); Chloride 110 mmol/L (98-107); Creatinine, Serum 1.32 mg/dL (0.55-1.02); EST Glomerular Filtration Rate 41 mL/min (>60); Est Glom Filt Rate - Afr Amer 49 mL/min (>60); Estimated Creatinine Clearance 22.79 ml/min; Glucose 84 mg/dL (74-106); Potassium 3.7 mmol/L (3.5-5.1); Protein, Total 5.5 g/dL (6.4-8.2); Sodium Level 140 mmol/L (136-145)
[2021-04-11 09:13] VITALS: BP 123/57; PULSE 64; RESP 18; TEMP 36.7; O2SAT 94
[2021-04-11 09:15] VITALS: PULSE 68
[2021-04-11] MEDS: Ciprofloxacin 400 MG/200 ML BAG 200 MG IV (09:27)
[2021-04-11] MEDS: Pantoprazole Sodium 40 MG Tablet PO (09:28)
[2021-04-11] MEDS: 0.9% Normal Saline 1,000 ML 100 ML IV (11:00)
--- NOTE | 2021-04-11 12:10 | CASEMGMT ---
KAYA ALKHANI Assessment: RN KAR in to pt room for initial transition planning/care coordination assessment. RN KAR introduced self and role at [facility], pt voices understanding and consents to assessment. Pt sitting up in chair with at bedside in no distress. Care providers, pharmacy, and demographics verified/updated. Admitting Dx: acute diverticulitis PCP:Inga Specialists: Nathalie, ortho; Koby, pain mgmt; Janelle, uro; Eladia, gastro [facility]erred [facility] Insurance: [employer] Prescription Benefit: yes LW/HPOA: Pt denies having a LW/DPOA. LNOK:Aung Lewis, Living Arrangements: Pt lives with in a single story house with 2 steps to enter with grab bars. Pt is I in ADL's except the last couple of days. Pt denies concerns at home. Transportation: Pt transports pt to medical appts. Pt denies concerns with transportation. DME/HHC/SNF: Pt has grab bars in the bathroom, shower chair, BSC, cane and two walkers. Pt has not had previous HHC or SNF stay. Pt had therapy a little while ago. Therapy recommending additional at home. Pt states she wants the agency that the therapist who saw her was from. Therapist was Miguel. Pt denied need for list of agencies. agreed. Pt states no further concerns/needs. CM to follow. Advised pt to contact CM if any further question/concerns/needs arise, voices understanding. Pt Goal: Home with [facility] PT and OT Plan: Home with [facility] PT and OT [id number]- Referral called to intake voicemail at [facility] after speaking with Asphalt Patcher Avani. Green sheet placed on chart.
[2021-04-11 15:20] VITALS: BP 109/68; PULSE 57; RESP 18; TEMP 36.6; O2SAT 94
--- NOTE | 2021-04-11 16:48 | PN.HOSP_ITS ---
Subjective Subjective Patient complains of diffuse abdominal tenderness. She really indicates she is more concerned about a urinary tract infection. I assured her we have her on antibiotics that will cover both. I encouraged her to eat. She reports some constipation but states she feels as if she needs to have a bowel movement. Objective Data Objective Data Vital Signs: Vital Signs Temp Pulse Resp BP Pulse Ox 97.9 F 57 L 18 109/68 94 04/11/21 15:20 04/11/21 15:20 04/11/21 15:20 04/11/21 15:20 04/11/21 15:20 Oxygen Delivery Method Room Air Weight: 94.2 kg Body Mass Index (BMI) 40.5 Intake & Output: Intake and Output for Last 24 Hours 04/09/21 04/10/21 04/11/21 23:59 23:59 23:59 Intake Total 2055.00 / 2055.00 1950.01 / 1950.01 Output Total 1000 / 1000 1000 / 1000 Balance 1055.00 / 1055.00 950.01 / 950.01 Lab / Micro Data Result Diagrams: 04/11/21 06:35 04/11/21 06:35 Labs: Laboratory Results - last 24 hr 04/10/21 04/11/21 04/11/21 12:45 06:35 06:35 WBC 7.7 RBC 2.90 L Hgb 8.9 L Hct 28.3 L MCV 97.6 MCH 30.7 MCHC 31.4 L RDW Std Deviation 53.6 H RDW Coeff of Keysha 15.1 H Plt Count 179 MPV 9.7 Immature Gran % (Auto) 0.300 Neut % (Auto) 67.6 Lymph % (Auto) 21.7 [place] % (Auto) 9.1 Eos % (Auto) 0.9 Baso % (Auto) 0.4 Absolute Neuts (auto) 5.2 Absolute Lymphs (auto) 1.67 Nucleated RBC % 0 Sodium 140 Potassium 3.7 Chloride 110 H Carbon Dioxide 24.0 Anion Gap 6 BUN 14 Creatinine 1.32 H Estim Creat Clear Calc 22.79 Est GFR (MDRD) Af Amer 49 L Est GFR (MDRD) Non-Af 41 L BUN/Creatinine Ratio 10.6 Glucose 84 Calcium 8.0 L Magnesium 1.4 L Iron 40 L TIBC 363 Iron Saturation 11.0 L Ferritin 122 Total Bilirubin 0.90 AST 19 ALT 10 L Alkaline Phosphatase 54 Total Protein 5.5 L Albumin 2.5 L Globulin 3.0 Albumin/Globulin Ratio 0.8 L Micro: Microbiology 04/10/21 14:10 Urine Catheter - Catheter Urine Culture - Preliminary GNR lactose culinary manager 04/10/21 13:25 Interface Orders SARS-CoV-2 Antigen (Rapid) - Final Physical Exam Const alert, oriented x3, no apparent distress and well nourished Constitutional Narrative: Obese elderly white female lying in bed, moves around bed independently, appears nontoxic, very pleasant Exam Limitations: no limitations HEENT head/scalp atraumatic and moist oral mucous membranes HEENT Narrative: Upper edentulous, Mallampati 2, no thrush Head and Scalp: normocephalic Eyes PERRL and EOMs intact bilaterally Neck no lymphadenopathy, supple, no JVD and no carotid bruits Resp normal respiratory effort, no retractions, no use of accessory muscles and clear to auscultation bilaterally Auscultation: Negative for crackles, rales, rhonchi or wheezes Cardio regular rate, regular rhythm, S1 normal heart sound, S2 normal heart sound, no rub, no gallops, no clicks and no JVD Cardio Narrative: 2 out of 6 systolic murmur GI normal to inspection, nondistended, normoactive bowel sounds, soft to palpation and non-distended GI Narrative: Mild diffuse abdominal tenderness but no specific point tenderness Palpation: tender Extremity normal to inspection and no clubbing, cyanosis or edema Peripheral Pulses: Yes pulses 2+ throughout Neuro oriented x3, CN's II-XII intact bilaterally and moves all extremities Sensorium / Orientation: awake, alert, oriented to person, oriented to place and oriented to time Speech: speech normal Psych affect normal Assessment & Plan Assessment/Plan (1) Acute UTI: (2) Diverticulitis of sigmoid colon: (3) Hypokalemia: PLAN: Acute diverticulitis of the sigmoid colon -Continue IV Cipro and Flagyl -Continue IV fluids -Abdomen is still cleaner tube but improved -Okay for p.o. intake -Encourage oral hydration -As needed pain meds -MiraLAX x1 dose Suspected UTI -UA was positive for nitrites, leuk esterase, had market white blood cells and bacteria was present -Continue ciprofloxacin -Blood and urine cultures are pending PREM on CKD stage IIIb -Serum creatinine is trending back towards baseline today -Continue IV fluids for now but reduce rate to 50 cc from 100 cc -We will likely be able to discontinue tomorrow -Repeat BMP in a.m. Fall at home -Consult physical therapy for evaluation -Suspect fall was related to acute illness -Patient indicates she has not had recent falls at home other than prior to presentation Hypomagnesemia -Replace -Recheck in a.m. Hypokalemia -Resolved Hyperbilirubinemia -Resolved Acute on chronic anemia -Hemoglobin is down today as compared to yesterday but no signs of obvious bleeding -Suspect hemodilution -Iron studies are not consistent with iron deficiency but iron stores appear to be low -We will start oral iron supplementation -CBC in a.m. Hyperlipidemia -Continue Crestor Hypertension -Continue Bystolic 10 mg daily Neuropathy -Continue gabapentin 100 mg 3 times daily GERD -Continue PPI DVT prophylaxis -Start Lovenox CODE STATUS -Full code Visit Charges Inpatient E&M: 87715 Subs Hosp L2
[2021-04-11] MEDS: Enoxaparin 30 MG/0.3 ML Syringe SC (17:21)
[2021-04-11] MEDS: Polyethylene Glycol 3350 17 GM PACKET PO (17:21)
[2021-04-11 20:54] VITALS: BP 110/80; PULSE 65; RESP 18; TEMP 36.6; O2SAT 93
[2021-04-11] MEDS: Atorvastatin Calcium 20 MG Tablet PO (21:18)
[2021-04-11] MEDS: Nebivolol HCl 10 MG Tablet PO (21:18)
[2021-04-12 03:14] VITALS: BP 125/61; PULSE 64; RESP 18; TEMP 36.9; O2SAT 92
[2021-04-12] MEDS: 0.9% Normal Saline 1,000 ML 50 ML IV (03:18)
[2021-04-12] MEDS: HYDROcodone Bitartrate/Apap 5/325 Tablet PO ×3 (05:43→18:54)
[2021-04-12] MEDS: metroNIDAZOLE 500 MG/100 ML BAG 100 MG IV ×3 (05:44→21:40)
[2021-04-12] MEDS: Gabapentin 100 MG Capsule PO ×3 (05:44→21:40)
[2021-04-12 06:20] LABS: Absolute Lymphocyte Count 1.48 X10^3/uL (0.83-4.51); Absolute Neutrophil Count 3.4 X10^3/uL (2.0-7.7); Basophil# 0.02 X10^3/uL; Basophil% 0.4 % (0-1); Eosinophil# 0.19 X10^3/uL; Eosinophils% 3.3 % (0-5); Hematocrit 28.9 % (37-47); Hemoglobin 8.9 g/dL (12.0-15.0); Lymphocyte # 1.48 X10^3/ul (0.83-4.51); Lymphocyte % 25.9 % (19-41); Mean Corp Hgb Conc 30.8 g/dL (32-36); Mean Corpuscular Hgb 30.4 pg (27.0-32.0); Mean Corpuscular Volume 98.6 fL (81-99); Mean Platelet Vol. 9.1 fl (6.2-12.0); Monocyte# 0.64 X10^3/uL; Monocyte% 11.2 % (0-10); NRBC Flagged by Analyzer 0 % (0-5); Neutrophil # 3.36 X10^3/uL (2.7-7.7); Neutrophil % 58.8 % (47-70); Platelet Count 181 K/mm3 (150-450); RBC Distribution Width CV 15.8 % (11.6-14.6); RBC Distribution Width SD 57.4 fl (35.1-43.9); Red Blood Count 2.93 M/mm3 (4.2-5.4); White Blood Count 5.7 K/mm3 (4.4-11.0)
[2021-04-12 06:45] LABS: Anion Gap 6 (5-15); BUN 14 mg/dL (7-18); BUN/Creat Ratio 10.9 RATIO (10-20); Calcium,Total 8.3 mg/dL (8.5-10.1); Chloride 112 mmol/L (98-107); Creatinine, Serum 1.28 mg/dL (0.55-1.02); EST Glomerular Filtration Rate 42 mL/min (>60); Est Glom Filt Rate - Afr Amer 51 mL/min (>60); Glucose 100 mg/dL (74-106); Magnesium 1.5 mg/dL (1.6-2.6); Potassium 3.9 mmol/L (3.5-5.1); Sodium Level 142 mmol/L (136-145)
[2021-04-12 08:31] VITALS: BP 123/64; PULSE 64; RESP 18; TEMP 37.6; O2SAT 94
[2021-04-12] MEDS: Ciprofloxacin 400 MG/200 ML BAG 200 MG IV (10:18)
[2021-04-12] MEDS: Pantoprazole Sodium 40 MG Tablet PO (10:19)
[2021-04-12] MEDS: Ezetimibe 10 MG Tablet PO (10:19)
[2021-04-12] MEDS: Iron Polysaccharide Complex 150 MG CAPSULE PO (10:23)
[2021-04-12] MEDS: Enoxaparin 30 MG/0.3 ML Syringe SC (10:23)
--- NOTE | 2021-04-12 10:23 | PN.HOSP_ITS ---
Subjective Subjective Patient states she is feeling a little bit better today. Still having some abdominal tenderness. Her p.o. intake has improved some although still minimal. She was having significant dysuria prior to presentation. She has a Viera in at this time so is unable to tell if that has improved. We will remove Viera to day. Objective Data Objective Data Vital Signs: Vital Signs Temp Pulse Resp BP Pulse Ox 99.6 F H 64 18 123/64 H 94 04/12/21 08:31 04/12/21 08:31 04/12/21 08:31 04/12/21 08:31 04/12/21 08:31 Oxygen Delivery Method Room Air Weight: 94.2 kg Body Mass Index (BMI) 40.5 Intake & Output: Intake and Output for Last 24 Hours 04/10/21 04/11/21 04/12/21 23:59 23:59 23:59 Intake Total 2055.00 / 2055.00 2240.01 / 2240.01 1258.33 / 1258.33 Output Total 1000 / 1000 1000 / 1000 500 / 500 Balance 1055.00 / 1055.00 1240.01 / 1240.01 758.33 / 758.33 Lab / Micro Data Result Diagrams: 04/12/21 05:50 04/12/21 05:50 Labs: Laboratory Results - last 24 hr 04/12/21 04/12/21 05:50 05:50 WBC 5.7 RBC 2.93 L Hgb 8.9 L Hct 28.9 L MCV 98.6 MCH 30.4 MCHC 30.8 L RDW Std Deviation 57.4 H RDW Coeff of Keysha 15.8 H Plt Count 181 MPV 9.1 Immature Gran % (Auto) 0.400 Neut % (Auto) 58.8 Lymph % (Auto) 25.9 [place] % (Auto) 11.2 H Eos % (Auto) 3.3 Baso % (Auto) 0.4 Absolute Neuts (auto) 3.4 Absolute Lymphs (auto) 1.48 Nucleated RBC % 0 Sodium 142 Potassium 3.9 Chloride 112 H Carbon Dioxide 24.0 Anion Gap 6 BUN 14 Creatinine 1.28 H Estim Creat Clear Calc 23.50 Est GFR (MDRD) Af Amer 51 L Est GFR (MDRD) Non-Af 42 L BUN/Creatinine Ratio 10.9 Glucose 100 Calcium 8.3 L Magnesium 1.5 L Micro: Microbiology 04/10/21 13:55 Blood Culture (Wb) - Left Wrist Blood Culture - Preliminary No growth in 48 hours. 04/10/21 12:45 Blood Culture (Wb) - Anticubital Left Blood Culture - Preliminary No growth in 48 hours. 04/10/21 14:10 Urine Catheter - Catheter Urine Culture - Preliminary GNR lactose associate professor plant pathology 04/10/21 13:25 Interface Orders SARS-CoV-2 Antigen (Rapid) - Final Physical Exam Const alert, oriented x3, no apparent distress and well nourished Constitutional Narrative: Obese elderly white female lying in bed on her left side, appears nontoxic Exam Limitations: no limitations HEENT head/scalp atraumatic and moist oral mucous membranes HEENT Narrative: Mallampati 3-4, no thrush, dentures in place Head and Scalp: normocephalic Resp normal respiratory effort, no retractions, no use of accessory muscles and clear to auscultation bilaterally Auscultation: Negative for crackles, rales, rhonchi or wheezes Cardio regular rate, regular rhythm, S1 normal heart sound, S2 normal heart sound, no rub, no gallops, no clicks and no JVD Cardio Narrative: 2 out of 6 systolic murmur GI normal to inspection, nondistended, normoactive bowel sounds, soft to palpation and non-distended GI Narrative: Mild diffuse abdominal tenderness but no specific point tenderness Palpation: tender Extremity normal to inspection and no clubbing, cyanosis or edema Peripheral Pulses: Yes pulses 2+ throughout Neuro oriented x3 Sensorium / Orientation: awake, alert, oriented to person, oriented to place and oriented to time Assessment & Plan Assessment/Plan (1) Acute UTI: (2) Diverticulitis of sigmoid colon: (3) Hypokalemia: PLAN: Acute diverticulitis of the sigmoid colon -Continue IV Cipro and Flagyl -DC IV fluids -Abdomen is heating and ventilating tender but improved -Encourage oral hydration -As needed pain meds -Continue regular diet Acute UTI -GNR-lactose associate professor plant pathology -Continue ceftriaxone -Await identification and sensitivities PREM on CKD stage IIIb -PREM has seemingly resolved -Serum creatinine is 1.28 today -We will discontinue IV fluids and see if patient can maintain with oral intake Fall at home -Patient has been seen by physical therapy and home health has been recommended at discharge -Suspect fall was related to acute illness -Patient indicates she has not had recent falls at home other than prior to presentation Hypomagnesemia -2 g mag bolus -Recheck magnesium level in a.m. Hypokalemia -Resolved Hyperbilirubinemia -Resolved Acute on chronic anemia -Hemoglobin has stabilized since initial drop -Suspect hemodilution -Iron studies are not consistent with iron deficiency but iron stores appear to be low -Continue oral iron supplementation Hyperlipidemia -Continue Crestor Hypertension -Continue Bystolic 10 mg daily Neuropathy -Continue gabapentin 100 mg 3 times daily GERD -Continue PPI DVT prophylaxis -Start Lovenox CODE STATUS -Full code Visit Charges Inpatient E&M: 29374 Subs Hosp L2
[2021-04-12] MEDS: 0.9% Saline Lock 10 ML Syringe IV (11:10)
[2021-04-12 16:00] VITALS: BP 117/65; PULSE 58; RESP 16; TEMP 36.9; O2SAT 95
[2021-04-12 20:40] VITALS: BP 124/71; PULSE 66; RESP 18; TEMP 36.7; O2SAT 93
[2021-04-12] MEDS: Atorvastatin Calcium 20 MG Tablet PO (21:41)
[2021-04-12] MEDS: Nebivolol HCl 10 MG Tablet PO (21:41)
[2021-04-13] MEDS: HYDROcodone Bitartrate/Apap 5/325 Tablet PO ×4 (00:24→17:49)
[2021-04-13 00:26] VITALS: BP 116/83; PULSE 72; RESP 18; TEMP 36.5; O2SAT 94
[2021-04-13] MEDS: metroNIDAZOLE 500 MG/100 ML BAG 100 MG IV ×3 (05:41→21:30)
[2021-04-13] MEDS: Gabapentin 100 MG Capsule PO ×3 (05:42→21:38)
[2021-04-13] MEDS: 0.9% Normal Saline 1,000 ML 50 ML IV (05:43)
[2021-04-13 05:47] VITALS: BP 142/84; PULSE 64; RESP 18; TEMP 36.8; O2SAT 94
[2021-04-13 06:23] LABS: Absolute Lymphocyte Count 1.64 X10^3/uL (0.83-4.51); Absolute Neutrophil Count 2.9 X10^3/uL (2.0-7.7); Basophil# 0.02 X10^3/uL; Basophil% 0.4 % (0-1); Eosinophils% 3.7 % (0-5); Hematocrit 27.8 % (37-47); Hemoglobin 8.7 g/dL (12.0-15.0); Lymphocyte # 1.64 X10^3/ul (0.83-4.51); Lymphocyte % 30.4 % (19-41); Mean Corp Hgb Conc 31.3 g/dL (32-36); Mean Corpuscular Hgb 30.2 pg (27.0-32.0); Mean Corpuscular Volume 96.5 fL (81-99); Mean Platelet Vol. 9.5 fl (6.2-12.0); Monocyte# 0.64 X10^3/uL; Monocyte% 11.9 % (0-10); NRBC Flagged by Analyzer 0 % (0-5); Neutrophil # 2.88 X10^3/uL (2.7-7.7); Neutrophil % 53.4 % (47-70); Platelet Count 196 K/mm3 (150-450); RBC Distribution Width CV 15.7 % (11.6-14.6); RBC Distribution Width SD 55.1 fl (35.1-43.9); Red Blood Count 2.88 M/mm3 (4.2-5.4); White Blood Count 5.4 K/mm3 (4.4-11.0)
[2021-04-13 06:52] LABS: Anion Gap 9 (5-15); BUN 13 mg/dL (7-18); BUN/Creat Ratio 11.5 RATIO (10-20); Calcium,Total 8.5 mg/dL (8.5-10.1); Chloride 112 mmol/L (98-107); Creatinine, Serum 1.13 mg/dL (0.55-1.02); EST Glomerular Filtration Rate 49 mL/min (>60); Est Glom Filt Rate - Afr Amer 59 mL/min (>60); Estimated Creatinine Clearance 26.62 ml/min; Glucose 120 mg/dL (74-106); Magnesium 1.8 mg/dL (1.6-2.6); Potassium 3.6 mmol/L (3.5-5.1); Sodium Level 142 mmol/L (136-145)
[2021-04-13 08:00] VITALS: BP 156/81; PULSE 69; RESP 18; TEMP 36.6; O2SAT 92
--- NOTE | 2021-04-13 08:34 | DS.PCM_ITS ---
Providers Date of Admission: 04/10/21 Primary Care Physician: Dr. Josefina Xiong, DO Reason For Visit: ACUTE DIVERTICITIS Diagnosis Discharge Diagnosis (1) Acute UTI: Status: Acute Code(s): N39.0 - Urinary tract infection, site not specified (2) Diverticulitis of sigmoid colon: Status: Acute Code(s): K57.32 - Diverticulitis of large intestine without perforation or abscess with out bleeding (3) Hypokalemia: Status: Acute Code(s): E87.6 - Hypokalemia Medications at Discharge Home Medications omeprazole 40 mg PO DAILY 06/08/16 rosuvastatin 10 mg PO QHS 07/18/17 nebivolol 10 mg PO QHS #0 01/11/19 hydrocodone-acetaminophen 1 - 2 ea PO Q6H 07/19/19 gabapentin 100 mg PO TID 04/10/21 ciprofloxacin HCl [Cipro] 500 mg PO BID #10 tab 04/13/21 metronidazole [Flagyl] 500 mg PO TID #15 tab 04/13/21 Hospital Course Summary of Care Provided Minutes Spent on Discharge: 35 Hospital Course: Patient is an 85-year-old lady admitted with progressive generalized weakness Acute diverticulitis involving the sigmoid colon ?Patient was managed with Flagyl and Cipro did improve Acute UTI with E. coli ?Managed with appropriate antibiotic therapy Acute kidney injury ?Managed with IV fluids kidney function did improve Anemia - Secondary to chronic disorder monitored H&H patient did not meet criteria for blood transfusion Hypokalemia -Corrected per protocol Hypomagnesemia -Corrected for protocol Physical deconditioning - Requested for PT OT eval and family welfare social work professor to assist with discharge planning patient was discharged home with home health Physical Exam Narrative GENERAL: cooperative HEENT: Atraumatic; EYES; Anicteric, Normal Conjunctiva NECK; supple, normal thyroid, RESPIRATORY: Diminished to auscultation CARDIOVASCULAR: Regular S1 S2, SKIN: No Rash PSYCH; Flat affect ABG / Lab / Microbiology Data Result Diagrams: 04/13/21 05:12 04/13/21 05:12 Laboratory: Laboratory Results - last 24 hr 04/13/21 04/13/21 05:12 05:12 WBC 5.4 RBC 2.88 L Hgb 8.7 L Hct 27.8 L MCV 96.5 MCH 30.2 MCHC 31.3 L RDW Std Deviation 55.1 H RDW Coeff of Keysha 15.7 H Plt Count 196 MPV 9.5 Immature Gran % (Auto) 0.200 Neut % (Auto) 53.4 Lymph % (Auto) 30.4 [place] % (Auto) 11.9 H Eos % (Auto) 3.7 Baso % (Auto) 0.4 Absolute Neuts (auto) 2.9 Absolute Lymphs (auto) 1.64 Nucleated RBC % 0 Sodium 142 Potassium 3.6 Chloride 112 H Carbon Dioxide 21.0 Anion Gap 9 BUN 13 Creatinine 1.13 H Estim Creat Clear Calc 26.62 Est GFR (MDRD) Af Amer 59 L Est GFR (MDRD) Non-Af 49 L BUN/Creatinine Ratio 11.5 Glucose 120 H Calcium 8.5 Magnesium 1.8 Microbiology: Microbiology 04/10/21 14:10 Urine Culture - Final Urine Catheter - Catheter Escherichia coli 04/10/21 13:55 Blood Culture - Preliminary Blood Culture (Wb) - Left Wrist No growth in 48 hours. 04/10/21 12:45 Blood Culture - Preliminary Blood Culture (Wb) - Anticubital Left No growth in 48 hours. Microbiology 04/10/21 14:10 Urine Catheter - Catheter Urine Culture - Final Escherichia coli 04/10/21 13:55 Blood Culture (Wb) - Left Wrist Blood Culture - Preliminary No growth in 48 hours. 04/10/21 12:45 Blood Culture (Wb) - Anticubital Left Blood Culture - Preliminary No growth in 48 hours. 04/10/21 13:25 Interface Orders SARS-CoV-2 Antigen (Rapid) - Final D/C Instructions Discharge Diet: No restrictions Discharge Activity: Return to Normal Activity Call your doctor if you observe: Fever of 101 or Higher, Shortness of breath, Fainting spells and Chest pain Meaningful Use Info Meaningful Use Diagnoses (Choose all that apply): None applicable Discharge Plan Admission Admit Date/Time: 04/10/21 16:00 Attending Provider: Eugene Arias Primary Care Provider: Josefina Xiong Instructions Patient Instructions: ED Chest Pain, Noncardiac Discharge Orders/Prescriptions Prescriptions: New metronidazole [Flagyl] 500 mg tablet 500 mg PO TID Qty: 15 RF: 0 ciprofloxacin HCl [Cipro] 500 mg tablet 500 mg PO BID Qty: 10 RF: 0 Continued omeprazole 40 MG capsule,delayed release(DR/EC) 40 mg PO DAILY RF: 0 rosuvastatin 10 MG tablet 10 mg PO QHS RF: 0 nebivolol 10 MG tablet 10 mg PO QHS Qty: 0 RF: 0 hydrocodone-acetaminophen 1 EACH tablet 1 - 2 ea PO Q6H RF: 0 gabapentin 100 mg capsule 100 mg PO TID RF: 0 Referrals / Follow Up: Shyla Luis MD [STAFF PHYSICIAN] - In 1 Week Josefina Xiong DO [Primary Care Provider] - In 1 Week Disposition Disposition (needs filled in before D/C Order can be placed): Home Health Service
--- NOTE | 2021-04-13 08:43 | PCM.DC ---
Discharge Instructions Diet Discharge Diet: No restrictions Activity Discharge Activity: Return to Normal Activity Dressing / Incision Call your doctor if you observe: Fever of 101 or Higher, Shortness of breath, Fainting spells and Chest pain Follow Up Care Test Results: Test results from this visit will be discussed in further detail at your follow-up appointment, if applicable. Discharge Plan Admission Admit Date/Time: 04/10/21 16:00 Attending Provider: Eugene Arias Primary Care Provider: Josefina Xiong Instructions Patient Instructions: ED Chest Pain, Noncardiac Discharge Orders/Prescriptions Prescriptions: New metronidazole [Flagyl] 500 mg tablet 500 mg PO TID Qty: 15 RF: 0 ciprofloxacin HCl [Cipro] 500 mg tablet 500 mg PO BID Qty: 10 RF: 0 Continued omeprazole 40 MG capsule,delayed release(DR/EC) 40 mg PO DAILY RF: 0 rosuvastatin 10 MG tablet 10 mg PO QHS RF: 0 nebivolol 10 MG tablet 10 mg PO QHS Qty: 0 RF: 0 hydrocodone-acetaminophen 1 EACH tablet 1 - 2 ea PO Q6H RF: 0 gabapentin 100 mg capsule 100 mg PO TID RF: 0 Referrals / Follow Up: Shyla Luis MD [STAFF PHYSICIAN] - In 1 Week Josefina Xiong DO [Primary Care Provider] - In 1 Week Disposition Disposition (needs filled in before D/C Order can be placed): Home Health Service
[2021-04-13] MEDS: Pantoprazole Sodium 40 MG Tablet PO (08:45)
[2021-04-13] MEDS: Ezetimibe 10 MG Tablet PO (08:46)
[2021-04-13] MEDS: Iron Polysaccharide Complex 150 MG CAPSULE PO (08:46)
[2021-04-13] MEDS: Enoxaparin 30 MG/0.3 ML Syringe SC (08:46)
[2021-04-13] MEDS: 0.9% Saline Lock 10 ML Syringe IV (11:02)
[2021-04-13] MEDS: Ciprofloxacin 400 MG/200 ML BAG 200 MG IV (11:02)
[2021-04-13] MEDS: Ondansetron 4 MG/2 ML Vial IV ×2 (11:03→21:30)
--- NOTE | 2021-04-13 13:15 | PN.HOSP_ITS ---
Subjective Subjective Patient is an 85-year-old lady admitted with progressive generalized weakness Objective Data Objective Data Vital Signs: Vital Signs Temp Pulse Resp BP Pulse Ox 97.8 F 69 18 156/81 H 92 04/13/21 08:00 04/13/21 08:00 04/13/21 08:00 04/13/21 08:00 04/13/21 08:00 Oxygen Delivery Method Room Air Weight: 94.2 kg Body Mass Index (BMI) 40.5 Intake & Output: Intake and Output for Last 24 Hours 04/11/21 04/12/21 04/13/21 23:59 23:59 23:59 Intake Total 2240.01 / 2240.01 3215.67 / 3215.67 805.83 / 805.83 Output Total 1000 / 1000 800 / 800 500 / 500 Balance 1240.01 / 1240.01 2415.67 / 2415.67 305.83 / 305.83 Lab / Micro Data Result Diagrams: 04/13/21 05:12 04/13/21 05:12 Labs: Laboratory Results - last 24 hr 04/13/21 04/13/21 05:12 05:12 WBC 5.4 RBC 2.88 L Hgb 8.7 L Hct 27.8 L MCV 96.5 MCH 30.2 MCHC 31.3 L RDW Std Deviation 55.1 H RDW Coeff of Keysha 15.7 H Plt Count 196 MPV 9.5 Immature Gran % (Auto) 0.200 Neut % (Auto) 53.4 Lymph % (Auto) 30.4 [place] % (Auto) 11.9 H Eos % (Auto) 3.7 Baso % (Auto) 0.4 Absolute Neuts (auto) 2.9 Absolute Lymphs (auto) 1.64 Nucleated RBC % 0 Sodium 142 Potassium 3.6 Chloride 112 H Carbon Dioxide 21.0 Anion Gap 9 BUN 13 Creatinine 1.13 H Estim Creat Clear Calc 26.62 Est GFR (MDRD) Af Amer 59 L Est GFR (MDRD) Non-Af 49 L BUN/Creatinine Ratio 11.5 Glucose 120 H Calcium 8.5 Magnesium 1.8 Micro: Microbiology 04/10/21 14:10 Urine Catheter - Catheter Urine Culture - Final Escherichia coli 04/10/21 13:55 Blood Culture (Wb) - Left Wrist Blood Culture - Preliminary No growth in 48 hours. 04/10/21 12:45 Blood Culture (Wb) - Anticubital Left Blood Culture - Preliminary No growth in 48 hours. 04/10/21 13:25 Interface Orders SARS-CoV-2 Antigen (Rapid) - Final Physical Exam Narrative GENERAL: cooperative HEENT: Atraumatic; EYES; Anicteric, Normal Conjunctiva NECK; supple, normal thyroid, RESPIRATORY: Diminished to auscultation CARDIOVASCULAR: Regular S1 S2, GI: soft, normoactive bowel sounds, : No Renal angle tenderness; EXTREMITIES: No edema, no clubbing, MUSCULOSKELETAL: no muscle waisting NEURO: Awake; no lateralizing signs. SKIN: No Rash PSYCH; Flat affect Assessment & Plan Assessment/Plan (1) Acute UTI: (2) Diverticulitis of sigmoid colon: (3) Hypokalemia: PLAN: Patient is an 85-year-old lady admitted with progressive generalized weakness Acute diverticulitis involving the sigmoid colon ?Patient was managed with Flagyl and Cipro did improve Acute UTI with E. coli ?Managed with appropriate antibiotic therapy Acute kidney injury ?Managed with IV fluids kidney function did improve Anemia - Secondary to chronic disorder monitored H&H patient did not meet criteria for blood transfusion ?Hypokalemia -Corrected per protocol Hypomagnesemia -Corrected for protocol Physical deconditioning - Requested for PT OT eval and health social work professor to assist with discharge planning DVT prophylaxis - On enoxaparin Visit Charges Inpatient E&M: 05779 Subs Hosp L2
[2021-04-13] MEDS: Acetaminophen 325 MG Tablet 650 MG PO ×2 (13:58→21:30)
[2021-04-13 14:30] VITALS: BP 144/71; PULSE 65; RESP 18; TEMP 36.7; O2SAT 92
[2021-04-13] MEDS: Dicyclomine 10 MG Capsule PO (17:49)
[2021-04-13 20:00] VITALS: BP 114/84; PULSE 68; RESP 18; TEMP 36.8; O2SAT 93
[2021-04-13] MEDS: Nebivolol HCl 10 MG Tablet PO (21:38)
[2021-04-13] MEDS: Atorvastatin Calcium 20 MG Tablet PO (21:38)
[2021-04-14] MEDS: HYDROcodone Bitartrate/Apap 5/325 Tablet PO ×2 (00:35→05:28)
[2021-04-14] MEDS: Dicyclomine 10 MG Capsule PO (00:35)
[2021-04-14] MEDS: 0.9% Normal Saline 1,000 ML 50 ML IV (00:35)
[2021-04-14 02:00] VITALS: BP 123/84; PULSE 72; RESP 18; TEMP 36.9; O2SAT 93
[2021-04-14] MEDS: metroNIDAZOLE 500 MG/100 ML BAG 100 MG IV (05:27)
[2021-04-14] MEDS: Gabapentin 100 MG Capsule PO (05:28)
[2021-04-14 08:00] VITALS: BP 122/89; PULSE 67; RESP 18; TEMP 36.7; O2SAT 93
[2021-04-14 08:08] VITALS: O2SAT 92
[2021-04-14] MEDS: Iron Polysaccharide Complex 150 MG CAPSULE PO (08:13)
--- NOTE | 2021-04-14 09:18 | CASEMGMT ---
KAYA CM called and updated [facility] that patient is discharging today. [facility] to call to confirm C setup. CM will continue to follow this patient and plan for a safe discharge.
[2021-04-14 09:29] VITALS: O2SAT 92
--- NOTE | 2021-04-14 11:21 | CASEMGMT ---
KAYA CM in to discuss discharge planning with patient. Referral made to [facility] as requested per CM assessment. [facility] is able to accept the patient with start of care for 04/16. RN CM updated patient and regarding HHC setup with [facility]. Patient and inquired about wheelchair, RN CM updated patient and that insurance would not cover wheelchair as she does not have a qualifying diagnosis. Patient and voiced understand. Patient and had no further questions or concerns at this time.
[2021-04-14 11:46] VITALS: BP 144/81; PULSE 60; RESP 18; TEMP 36.5; O2SAT 93
--- NOTE | 2021-04-14 12:33 | PHA.DC.MR ---
Pharmacy Service has performed discharge medication reconciliation for this patient. The patient's discharge medication list was reviewed for discrepancies and discrepancies were resolved. Home Medications omeprazole 40 mg PO DAILY 06/08/16 rosuvastatin 10 mg PO QHS 07/18/17 nebivolol 10 mg PO QHS #0 01/11/19 hydrocodone-acetaminophen 1 - 2 ea PO Q6H 07/19/19 gabapentin 100 mg PO TID 04/10/21 ciprofloxacin HCl [Cipro] 500 mg PO BID #10 tab 04/13/21 metronidazole [Flagyl] 500 mg PO TID #15 tab 04/13/21 dicyclomine 10 mg PO Q6H PRN #60 cap 04/14/21
== END 2021-04-14 12:03 | disposition home health service (06) | DRG 690 ==
LOC: ED 16:03 → MS3 16:17
PROVIDERS: Internal Medicine; Admitting Provider Internal Medicine; Emergency Provider Emergency Medicine; PCP Internal Medicine; Visit Provider Internal Medicine
DX: N39.0 Urinary tract infection, site not specified (principal); K57.32 Diverticulitis of large intestine without perforation or abscess without bleeding; Z68.41 Body mass index [BMI] 40.0-44.9, adult; N17.9 Acute kidney failure, unspecified; K21.9 Gastro-esophageal reflux disease without esophagitis; E78.5 Hyperlipidemia, unspecified; K58.9 Irritable bowel syndrome, unspecified; E66.01 Morbid (severe) obesity due to excess calories; N18.32 Chronic kidney disease, stage 3b; I48.0 Paroxysmal atrial fibrillation; G89.29 Other chronic pain; M54.9 Dorsalgia, unspecified; E87.6 Hypokalemia; E83.42 Hypomagnesemia; E11.40 Type 2 diabetes mellitus with diabetic neuropathy, unspecified; B96.20 Unspecified Escherichia coli [E. coli] as the cause of diseases classified elsewhere; D50.9 Iron deficiency anemia, unspecified; W06.XXXA Fall from bed, initial encounter; Z87.440 Personal history of urinary (tract) infections; Z87.891 Personal history of nicotine dependence; Z90.49 Acquired absence of other specified parts of digestive tract; Z90.710 Acquired absence of both cervix and uterus; I12.9 Hypertensive chronic kidney disease with stage 1 through stage 4 chronic kidney disease, or unspecified chronic kidney disease
CPT/HCPCS: 36415; 70450; 71045; 74176; 80048; 80053; 81001; 82550; 82728; 83540; 83550; 83605; 83735; 84484; 85025; 85610; 85730; 87040; 87077; 87086; 87088; 87186; 87426; 87493; 87506; 93005; 97110; 97162; 97166; 97530; 97535; 97802; 99285; J7030; J7040; A4216; J0744; J2405

== ENCOUNTER 2021-04-22 12:24 | Emergency (ER) | payer MEDICARE, SELFPAY ==
[2021-04-10 16:35] VITALS: BMI 40.5
[2021-04-22 12:25] VITALS: BP 119/77; PULSE 72; RESP 15; TEMP 36.8; O2SAT 96; BMI 39.0
[2021-04-22 12:27] VITALS: BP 119/77; PULSE 72; RESP 15; TEMP 36.8; O2SAT 96
--- NOTE | 2021-04-22 13:00 | VDLE_ITS ---
Reason For Study: swelling RIGHT LEFT GSV is normal. GSV is normal. CFV is compressible, spontaneous, phasic, CFV is compressible, spontaneous, phasic, competent and demonstrates normal competent, and demonstrates normal augmentation. augmentation. FV is compressible, spontaneous, phasic, FV is compressible, spontaneous, phasic, competent and demonstrates normal competent and demonstrates normal augmentation. augmentation. POP V is compressible, spontaneous, phasic, POP V is compressible, spontaneous, phasic, competent and demonstrates normal competent and demonstrates normal augmentation. augmentation. T/P Trunk is compressible. T/P Trunk is compressible. PTV is compressible. PTV is compressible. RT PerV is compressible. LT PerV is compressible. Procedure This is a venous duplex using B-mode, color flow and spectral Doppler. Exam performed portable in ED. The study was technically difficult. PT had difficulty tolerating probe pressure. A preliminary report was called and/or faxed to ED. VL/Venous Duplex US - Fercho Extrem Interpretation Summary No evidence for acute deep venous thrombosis bilateral lower extremities with p atent and compressible bilateral great saphenous veins. This exam was noted to be technic ally difficult. Ordering Physician: Silvestre Fitzgerald Referring Physician: Josefina Xiong Performed By: Ju Contreras, NAZIACS, RVT
[2021-04-22] MEDS: Ipratropium/Albuterol Sulfate 3 ML AMPUL.NEB INHALATION (13:16)
[2021-04-22 13:19] VITALS: PULSE 76; RESP 20
[2021-04-22 13:54] LABS: Absolute Neutrophil Count 3.8 X10^3/uL (2.0-7.7); Basophil# 0.04 X10^3/uL; Basophil% 0.6 % (0-1); Eosinophil# 0.18 X10^3/uL; Eosinophils% 2.6 % (0-5); Hematocrit 32.1 % (37-47); Lymphocyte % 30.7 % (19-41); Mean Corp Hgb Conc 31.2 g/dL (32-36); Mean Corpuscular Hgb 30.8 pg (27.0-32.0); Mean Corpuscular Volume 98.8 fL (81-99); Mean Platelet Vol. 9.2 fl (6.2-12.0); Monocyte# 0.69 X10^3/uL; Monocyte% 10.1 % (0-10); NRBC Flagged by Analyzer 0 % (0-5); Neutrophil # 3.82 X10^3/uL (2.7-7.7); Neutrophil % 55.7 % (47-70); Platelet Count 285 K/mm3 (150-450); RBC Distribution Width CV 16.9 % (11.6-14.6); RBC Distribution Width SD 60.7 fl (35.1-43.9); Red Blood Count 3.25 M/mm3 (4.2-5.4); White Blood Count 6.9 K/mm3 (4.4-11.0)
[2021-04-22 14:02] LABS: ALB/GLOB Ratio 0.8 RATIO (0.9-2.4); AST(SGOT) 31 U/L (15-37); Alanine Aminotransfer ALT/SGPT 18 U/L (13-56); Albumin, Serum 2.8 g/dL (3.2-5.0); Alkaline Phosphatase 67 U/L (45-117); Anion Gap 7 (5-15); BUN 7 mg/dL (7-18); BUN/Creat Ratio 5.4 RATIO (10-20); Calcium,Total 8.4 mg/dL (8.5-10.1); Chloride 109 mmol/L (98-107); EST Glomerular Filtration Rate 41 mL/min (>60); Est Glom Filt Rate - Afr Amer 50 mL/min (>60); Estimated Creatinine Clearance 23.14 ml/min; Globulin 3.5 g/dL (2.2-4.2); Glucose 96 mg/dL (74-106); Protein, Total 6.3 g/dL (6.4-8.2); Sodium Level 140 mmol/L (136-145)
[2021-04-22 14:11] LABS: BNP,B-Type NATRIURETIC PEPTIDE 295.4 pg/mL (0-100)
--- NOTE | 2021-04-22 14:20 | RAD_ITS ---
STUDY: X-RAY CHEST REASON FOR EXAM: Female, 85 years old. Wheezing TECHNIQUE: Single AP portable view of the chest. COMPARISON: Comparison is made with prior study dated 04/10/2021. FINDINGS: EKG electrodes are seen. Stable elevation of the right hemidiaphragm. There is no demonstrated pleural abnormality. There is moderate cardiac enlargement. Normal mediastinum and yaw. Normal visualized pulmonary arteries. There is atherosclerotic tortuosity of the aortic arch and descending thoracic aorta. There are diffuse degenerative changes of the visualized thoracic spine. Normal visualized ribs, clavicles, and shoulders. There is no demonstrated abnormality of the visualized soft tissue structures of the upper abdomen. RAD/Chest 1 View (Portable) IMPRESSION: Cardiomegaly. Electronically Signed: Young Giles MD at 14:45 EDT , Service support ,
[2021-04-22 14:49] VITALS: PULSE 75; RESP 14; O2SAT 95
[2021-04-22] MEDS: 0.9% Normal Saline 1,000 ML 999 ML IV (15:46)
[2021-04-22 16:09] VITALS: PULSE 76; RESP 22; O2SAT 94
--- NOTE | 2021-04-22 16:37 | EX.ED.DYSGE1 ---
HPI History of Present Illness Chief Complaint: Edema Informant: patient Onset/Context/Timing Onset: Days (3-4) Context: Gradual Onset Timing: Continuous Quality: Swelling, weakness Location: Lower extremities Worsened by: Nothing Relieved by: Nothing Narrative Narrative: Patient presents with swelling to both lower extremities that has been getting worse over the past 3 to 4 days. Patient states she was recently hospitalized and when she was discharged she started having swelling in her lower extremities. Patient states this has been getting worse. Patient states she has been having some weakness in her legs. Patient denies any fevers but admits to subjective chills. Patient also admits to sore throat and rhinorrhea. Patient states she feels as though she is wheezing at times. Patient denies any shortness of breath or cough however. Patient states she has been using compression stockings at home with no improvement. [facility] Medical History DJD (degenerative joint disease), lumbar Essential (primary) hypertension Former smoker GERD (gastroesophageal reflux disease) Hyperlipidemia Hypertension IBS (irritable bowel syndrome) Left carotid artery stenosis New onset atrial fibrillation (01/10/19) Obesity Right bundle branch block (RBBB) Thyroid nodule TIA (transient ischemic attack) Type 2 diabetes mellitus Home Medications omeprazole 40 mg PO DAILY 06/08/16 [History Last Taken 04/21/21] rosuvastatin 10 mg PO QHS 07/18/17 [History Last Taken 04/21/21] nebivolol 10 mg PO QHS #0 01/11/19 [Rx Last Taken 04/21/21] hydrocodone-acetaminophen 1 - 2 ea PO Q6H 07/19/19 [History Last Taken 04/21/21] gabapentin 100 mg PO TID 04/10/21 [History Last Taken 04/21/21] dicyclomine 10 mg PO Q6H PRN #60 cap 04/14/21 [Rx Last Taken 04/21/21] cholecalciferol (vitamin D3) 125 mcg PO DAILY 04/22/21 [History Last Taken 04/21/21] ondansetron HCl 4 mg PO Q6H PRN 04/22/21 [History Last Taken Unknown] Allergy/AdvReac Type Severity Reaction Status Date / Time fentanyl AdvReac Other Verified 04/10/21 12:35 Sulfa (Sulfonamide AdvReac Other Verified 04/10/21 12:35 Antibiotics) Surgical History History of appendectomy History of back surgery History of hysterectomy History of tonsillectomy Hx of cholecystectomy S/P repair of paraesophageal hernia Status post biopsy of thyroid gland Social History Smoking Status: Former smoker ROS ROS ED Constitutional Constitutional ED: Reports chills and subjective; Denies fever(s) Eyes Eyes: Denies blurry vision or change in vision ENT ENT ED: Reports rhinorrhea and sore throat Cardiovascular Cardiovascular: Denies chest pain or palpitations Respiratory/Chest Respiratory/Chest: Reports wheezing; Denies cough or dyspnea Gastrointestinal Gastrointestinal: Denies nausea or vomiting Genitourinary Genitourinary ED: Denies dysuria or hematuria Musculoskeletal Musculoskeletal: Reports back pain and neck pain Integumentary Denies abscess or rash Neurologic Neurologic: Reports weakness; Denies headache(s) Allergic/Immunologic Allergic/Immunologic ED: Denies mouth swelling or urticaria EXAM Physical Exam Const Vital Signs: 04/22/21 12:25 04/22/21 12:27 04/22/21 13:19 Temperature 98.3 F 98.3 F Temperature Source Temporal Temporal Pulse Rate 72 72 76 Respiratory Rate 15 15 20 H Respiratory Pattern Tachypnea Blood Pressure 119/77 119/77 Blood Pressure Mean 91 91 Pulse Ox 96 96 Oxygen Delivery Method Room Air Room Air 04/22/21 14:49 04/22/21 16:09 Temperature Temperature Source Pulse Rate 75 76 Respiratory Rate 14 22 H Respiratory Pattern Blood Pressure Blood Pressure Mean Pulse Ox 95 94 Oxygen Delivery Method Room Air Room Air Positive well nourished, well developed and obese General Appearance ED: well developed Nutritional Appearance: obese HEENT Reports moist mucous membranes Neck supple and no JVD Resp normal respiratory effort and clear to auscultation bilaterally Cardio regular rate and regular rhythm GI normal to inspection, nondistended, normoactive bowel sounds and non-tender Palpation: soft Extremity Extremity Narrative: There is 2+ pitting edema of the lower extremities to the distal thighs bilaterally. There is some mild tenderness over the calf bilaterally. General Extremety ED: Yes edema and tenderness General Extremity: edema Neuro oriented x3, CN's II-XII intact bilaterally and no sensory deficits noted Sensorium / Orientation: alert Motor Exam: strength 5/5 throughout Psych mental status grossly normal MDM MDM MDM Narrative Medical decision making narrative: Patient was given a DuoNeb here. Patient was given a liter of fluids. Venous duplex of the lower extremities was obtained. There is no evidence of DVT. CBC shows a mild anemia with a hemoglobin of 10.0 hematocrit 32.1. Comprehensive metabolic profile showed a slightly elevated creatinine of 1.30. BUN was normal. Potassium was low at 3.0. Patient was given oral potassium here. Troponin was normal. BNP was 295.4. Portable 1 view chest x-ray was obtained. On my interpretation, lung hackett are clear. There is cardiomegaly. Bony thorax is normal. There is no acute process noted. Radiologist also interpreted the x-ray and agrees. C. difficile was obtained and was negative. Case was discussed with the patient's primary care physician. She will follow up with the patient as an outpatient. Patient was instructed to keep her legs elevated. Patient was instructed to return if worse in any way. Patient understood and was agreeable with the plan. All questions were answered. Lab Data Attestation: I reviewed the patient's lab results. Labs: Laboratory Results - last 24 hr 04/22/21 04/22/21 04/22/21 13:25 13:44 13:44 WBC 6.9 RBC 3.25 L Hgb 10.0 L Hct 32.1 L MCV 98.8 MCH 30.8 MCHC 31.2 L RDW Std Deviation 60.7 H RDW Coeff of Keysha 16.9 H Plt Count 285 MPV 9.2 Immature Gran % (Auto) 0.300 Neut % (Auto) 55.7 Lymph % (Auto) 30.7 [place] % (Auto) 10.1 H Eos % (Auto) 2.6 Baso % (Auto) 0.6 Absolute Neuts (auto) 3.8 Absolute Lymphs (auto) 2.10 Nucleated RBC % 0 Sodium 140 Potassium 3.0 L Chloride 109 H Carbon Dioxide 24.0 Anion Gap 7 BUN 7 Creatinine 1.30 H Estim Creat Clear Calc 23.14 Est GFR (MDRD) Af Amer 50 L Est GFR (MDRD) Non-Af 41 L BUN/Creatinine Ratio 5.4 L Glucose 96 Calcium 8.4 L Total Bilirubin 0.40 AST 31 ALT 18 Alkaline Phosphatase 67 Troponin I < 0.015 B-Natriuretic Peptide 295.4 H Total Protein 6.3 L Albumin 2.8 L Globulin 3.5 Albumin/Globulin Ratio 0.8 L Radiography Chest X-Ray - ED: 1 View, Read by ED Physician, Read by Radiologist, Normal and Cardiomegaly Diagnostic Testing: Radiology Impression Venous Doppler Study 04/22/21 13:00 Interpretation Summary No evidence for acute deep venous thrombosis bilateral lower extremities with patent and compressible bilateral great saphenous veins. This exam was noted to be technically difficult. Ordering Physician: Silvestre Fitzgerald Referring Physician: Josefina Xiong Performed By: Ju Contreras, RDCS, RVT Chest X-Ray 04/22/21 14:20 IMPRESSION: Cardiomegaly. Electronically Signed: Young Giles MD at 14:45 EDT , Service support , Discharge Plan Triage Chief Complaint: Edema ED Provider: Silvestre Fitzgerald Dx/Rx/DC Orders Clinical Impression: Peripheral edema Instructions: ED Peripheral Edema, Bilateral Prescriptions: No Action omeprazole 40 MG capsule,delayed release(DR/EC) 40 mg PO DAILY RF: 0 rosuvastatin 10 MG tablet 10 mg PO QHS RF: 0 nebivolol 10 MG tablet 10 mg PO QHS Qty: 0 RF: 0 hydrocodone-acetaminophen 1 EACH tablet 1 - 2 ea PO Q6H RF: 0 gabapentin 100 mg capsule 100 mg PO TID RF: 0 dicyclomine 10 mg Capsule 10 mg PO Q6H PRN (Reason: abdominal discomfort/ibs) Qty: 60 RF: 0 ondansetron HCl 4 mg tablet 4 mg PO Q6H PRN (Reason: Nausea) RF: 0 cholecalciferol (vitamin D3) 125 mcg (5,000 unit) Capsule 125 mcg PO DAILY RF: 0 Primary Care Provider: Josefina Xiong Referrals: Josefina Xiong DO [Primary Care Provider] - 3-5 Days Disposition Disposition: Home, self care
[2021-04-22] MEDS: Potassium Chloride Oral Tablet 20 MEQ 40 MEQ PO (17:04)
[2021-04-22 17:14] VITALS: BP 118/79; PULSE 71; RESP 18; O2SAT 98
== END 2021-04-22 17:15 | disposition home or self-care (01) ==
PROVIDERS: Emergency Provider Emergency Medicine; PCP Internal Medicine
DX: R60.0 Localized edema (principal); E66.9 Obesity, unspecified; J02.9 Acute pharyngitis, unspecified; J34.89 Other specified disorders of nose and nasal sinuses; Z87.891 Personal history of nicotine dependence; E11.9 Type 2 diabetes mellitus without complications; K21.9 Gastro-esophageal reflux disease without esophagitis; E78.5 Hyperlipidemia, unspecified; Z86.73 Personal history of transient ischemic attack (TIA), and cerebral infarction without residual deficits; I10 Essential (primary) hypertension; R06.2 Wheezing
CPT/HCPCS: 71045; 80053; 83880; 84484; 85025; 87493; 93970; 94640; 96360; 99285; J7030; A4216

== ENCOUNTER → 2021-08-21 16:21 | Outpatient (CLI) | payer MEDICARE, SELFPAY ==
[2021-08-24 14:18] LABS: Giardia Lamblia, Stool EIA Negative (Negative)
[2021-08-25 19:54] LABS: Calprotectin, Stool 112 ug/g (0-120)
== END ==
PROVIDERS: PCP Internal Medicine; Visit Provider Internal Medicine Gastroenterology
DX: R19.7 Diarrhea, unspecified (principal); K57.92 Diverticulitis of intestine, part unspecified, without perforation or abscess without bleeding
CPT/HCPCS: 83993; 87329; 87493; 87506

== ENCOUNTER → 2021-09-17 15:50 | Outpatient (CLI) | payer MEDICARE, SELFPAY ==
[2021-09-17 18:11] LABS: Hematocrit 38.5 % (37-47); Hemoglobin 12.4 g/dL (12.0-15.0); Mean Corp Hgb Conc 32.2 g/dL (32-36); Mean Corpuscular Hgb 31.9 pg (27.0-32.0); Mean Platelet Vol. 9.3 fl (6.2-12.0); Platelet Count 219 K/mm3 (150-450); RBC Distribution Width CV 13.6 % (11.6-14.6); RBC Distribution Width SD 49.2 fl (35.1-43.9); Red Blood Count 3.89 M/mm3 (4.2-5.4); White Blood Count 7.3 K/mm3 (4.4-11.0)
[2021-09-17 18:26] LABS: Anion Gap 6 (5-15); BUN 23 mg/dL (7-18); BUN/Creat Ratio 18.1 RATIO (10-20); Calcium,Total 9.4 mg/dL (8.5-10.1); Chloride 102 mmol/L (98-107); Creatinine, Serum 1.27 mg/dL (0.55-1.02); EST Glomerular Filtration Rate 43 mL/min (>60); Est Glom Filt Rate - Afr Amer 51 mL/min (>60); Glucose 94 mg/dL (74-106); Sodium Level 138 mmol/L (136-145)
== END ==
PROVIDERS: PCP Internal Medicine; Referring Provider Urology; Visit Provider Urology
DX: N39.0 Urinary tract infection, site not specified (principal); R10.9 Unspecified abdominal pain
CPT/HCPCS: 36415; 80048; 85027

== ENCOUNTER 2021-10-09 20:27 | Emergency (ER) | payer MEDICARE, SELFPAY ==
[2021-10-09 20:28] VITALS: BP 121/71; PULSE 66; RESP 16; TEMP 36.1; O2SAT 98; BMI 36.5
[2021-10-09 20:40] VITALS: BP 117/67; PULSE 64; RESP 19; O2SAT 97
--- NOTE | 2021-10-09 21:16 | CT_ITS ---
HISTORY: Left lower quadrant abdominal pain EXAMINATION: CT Abdomen And Pelvis W/ Contrast Injection TECHNIQUE: Helically acquired images were obtained of the abdomen and pelvis following IV and oral contrast. A radiation dose optimization technique was used for this scan. IV Contrast dosage and agent: 100mL Isovue-300 Oral contrast: Yes COMPARISON: Unenhanced CT abdomen and pelvis from 04/10/21 FINDINGS: LOWER CHEST: Mild basilar atelectatic changes. Benign punctate calcified granuloma anterior right middle lobe. Tortuous thoracic aorta. Heart size upper limits normal. LIVER: No concerning lesion. GALLBLADDER AND BILIARY TREE: Previous cholecystectomy. Mild residual biliary ductal ectasia. KIDNEYS AND URETERS: Stable mildly atrophic kidneys. No concerning lesion. No hydronephrosis. ADRENAL GLANDS: Non-enlarged. SPLEEN: Normal size without discrete mass. PANCREAS: No discrete mass or peripancreatic inflammation. BOWEL: Previous gastric fundoplication and appendectomy. No evidence of bowel obstruction. Distal colonic diverticula. Inflamed diverticulum at mildly thickened proximal sigmoid colon with pericolonic fat stranding. LYMPH NODES: No enlarged mesenteric or retroperitoneal lymph nodes. PERITONEUM: Trace free fluid within the left lower quadrant. No free air or abscess. VESSELS: Atherosclerosis with no abdominal aortic aneurysm. URINARY BLADDER: Unremarkable. REPRODUCTIVE ORGANS: Status post hysterectomy. ABDOMINAL WALL: No acute findings or significant hernia defect. BONES: Skeletal degenerative changes. Stable mild lumbar dextroscoliosis. Status post lower lumbar laminectomies. CT/Abdomen/Pelvis W IV Cont ONLY IMPRESSION: 1. Sigmoid diverticulitis with no perforation or abscess formation. 2. Atherosclerotic disease and mildly atrophic kidneys. 3. Other nonurgent findings within body of report. Individualized dose optimization techniques were used for this CT. at 0015 Reported and signed by: Sylvester Mendez MD Electronically Signed: Sylvester Mendez MD at 0:14 EST Tel , Service support ,
[2021-10-09] MEDS: Ondansetron 4 MG/2 ML Vial IV (21:34)
[2021-10-09] MEDS: Morphine 4 MG/ML Syringe IV (21:34)
[2021-10-09 21:35] LABS: Absolute Lymphocyte Count 1.69 X10^3/uL (0.83-4.51); Absolute Neutrophil Count 5.6 X10^3/uL (2.0-7.7); Basophil# 0.03 X10^3/uL; Basophil% 0.4 % (0-1); Eosinophil# 0.07 X10^3/uL; Eosinophils% 0.9 % (0-5); Hematocrit 36.5 % (37-47); Hemoglobin 12.3 g/dL (12.0-15.0); Lymphocyte # 1.69 X10^3/ul (0.83-4.51); Lymphocyte % 20.8 % (19-41); Mean Corp Hgb Conc 33.7 g/dL (32-36); Mean Corpuscular Hgb 33.2 pg (27.0-32.0); Mean Corpuscular Volume 98.4 fL (81-99); Mean Platelet Vol. 9.5 fl (6.2-12.0); Monocyte# 0.76 X10^3/uL; Monocyte% 9.4 % (0-10); NRBC Flagged by Analyzer 0 % (0-5); Neutrophil # 5.55 X10^3/uL (2.7-7.7); Neutrophil % 68.3 % (47-70); Platelet Count 209 K/mm3 (150-450); RBC Distribution Width CV 13.5 % (11.6-14.6); RBC Distribution Width SD 48.3 fl (35.1-43.9); Red Blood Count 3.71 M/mm3 (4.2-5.4); White Blood Count 8.1 K/mm3 (4.4-11.0)
[2021-10-09 21:45] LABS: ALB/GLOB Ratio 0.7 RATIO (0.9-2.4); AST(SGOT) 23 U/L (15-37); Alanine Aminotransfer ALT/SGPT 19 U/L (13-56); Albumin, Serum 2.8 g/dL (3.2-5.0); Alkaline Phosphatase 64 U/L (45-117); Anion Gap 7 (5-15); BUN 24 mg/dL (7-18); BUN/Creat Ratio 15.4 RATIO (10-20); Calcium,Total 9.2 mg/dL (8.5-10.1); Chloride 106 mmol/L (98-107); Creatinine, Serum 1.56 mg/dL (0.55-1.02); EST Glomerular Filtration Rate 34 mL/min (>60); Est Glom Filt Rate - Afr Amer 41 mL/min (>60); Estimated Creatinine Clearance 19.28 ml/min; Globulin 4.3 g/dL (2.2-4.2); Glucose 115 mg/dL (74-106); Potassium 3.8 mmol/L (3.5-5.1); Protein, Total 7.1 g/dL (6.4-8.2); Sodium Level 140 mmol/L (136-145)
[2021-10-09 22:28] LABS: Red Blood Cells-Urine 0 SEEN /hpf (0-5)
[2021-10-09 22:29] LABS: Color, Urine Yellow (Yellow); Glucose, Dipstick Normal (Normal); Ketone-Dipstick Negative (Negative); Leukocyte Esterase-Dipstick 500 /ul (Negative); Nitrite-Dipstick Positive (Negative); Occult Blood-Urine 25 /ul (Negative); Protein-Dipstick 30 mg/dl (Negative); Urine Bilirubin Dipstick Negative (Negative); Urine Clarity Sl. Cloudy (Clear); Urine Urobilinogen Normal (Normal)
--- NOTE | 2021-10-09 22:31 | ED.VIS.GI ---
HPI <Dr. Abdi Nair DO - Last Filed: 10/12/21 22:25> HPI - GI History of Present Illness Chief Complaint: Abd Pain Narrative Narrative: 85-year-old female presenting with left lower quadrant pain. She states has had this for a while but has been worse over the last several days. She denies diarrhea or constipation. She does localizes only to the left lower quadrant. No nausea or vomiting. No fever or chills. He does complain of urinary complaints but states he always has these. She is concerned that she might have a urinary tract infection again. [facility] <Dr. Abdi Nair DO - Last Filed: 10/12/21 22:25> [facility] Medical History Anemia Bone fracture Cataract Diarrhea Diverticulitis Diverticulitis DJD (degenerative joint disease), lumbar Elevated triglycerides with high cholesterol Environmental allergies Essential (primary) hypertension Former smoker GERD (gastroesophageal reflux disease) Hearing problem History of UTI Hypertension IBS (irritable bowel syndrome) Kidney failure Left carotid artery stenosis Neuropathy New onset atrial fibrillation (01/10/19) Obesity Osteoarthritis Right bundle branch block (RBBB) Thyroid nodule TIA (transient ischemic attack) Type 2 diabetes mellitus Home Medications omeprazole 40 mg PO DAILY 06/08/16 [History Last Taken 04/21/21] rosuvastatin 10 mg PO QHS 07/18/17 [History Last Taken 04/21/21] nebivolol 10 mg PO QHS #0 01/11/19 [Rx Last Taken 04/21/21] hydrocodone-acetaminophen 1 - 2 ea PO Q6H 07/19/19 [History Last Taken 04/21/21] gabapentin 100 mg PO TID 04/10/21 [History Last Taken 04/21/21] dicyclomine 10 mg PO Q6H PRN #60 cap 04/14/21 [Rx Last Taken 04/21/21] cholecalciferol (vitamin D3) 125 mcg PO DAILY 04/22/21 [History Last Taken 04/21/21] cephalexin 250 mg capsule 250 mg PO DAILY cap 07/24/21 [History Last Taken Unknown] ezetimibe 10 mg tablet 10 mg PO DAILY 07/24/21 [History Last Taken Unknown] methenamine hippurate 1 gram tablet 1 g PO BID 07/24/21 [History Last Taken Unknown] mirabegron 50 mg tablet,extended release 24 hr 50 mg PO DAILY 07/24/21 [History Last Taken Unknown] budesonide 3 mg capsule,delayed,extended release 3 mg PO QAM 30 Days #30 ea 09/23/21 [Rx Last Taken Unknown] amoxicillin-pot clavulanate [Augmentin] 1 tab PO BID #20 tab 10/10/21 [Rx Last Taken Unknown] Allergy/AdvReac Type Severity Reaction Status Date / Time fentanyl AdvReac Other Verified 10/09/21 20:30 Sulfa (Sulfonamide AdvReac Other Verified 10/09/21 20:30 Antibiotics) Surgical History History of appendectomy History of back surgery History of hysterectomy History of tonsillectomy Hx of cholecystectomy S/P repair of paraesophageal hernia Status post biopsy of thyroid gland Social History Smoking Status: Former smoker ROS <Dr. Abdi Nair, - Last Filed: 10/12/21 22:25> ROS ED Constitutional Constitutional ED: Denies chills or fever(s) ENT ENT ED: Denies rhinorrhea or sore throat Cardiovascular Cardiovascular: Denies chest pain or palpitations Respiratory/Chest Respiratory/Chest: Denies cough or dyspnea Gastrointestinal Gastrointestinal: Reports abdominal pain; Denies diarrhea, nausea or vomiting Genitourinary Genitourinary ED: Reports dysuria and urinary frequency Musculoskeletal Musculoskeletal: Denies arthralgias, back pain or myalgias Integumentary Denies Abrasions or rash Neurologic Neurologic: Denies headache(s) or paresthesias EXAM <Dr. Abdi Nair, - Last Filed: 10/12/21 22:25> Physical Exam Const Vital Signs: 10/09/21 20:28 10/09/21 20:40 Temperature 97.0 F L Temperature Source Temporal Pulse Rate 66 64 Respiratory Rate 16 19 H Blood Pressure 121/71 H 117/67 Blood Pressure Mean 87 83 Pulse Ox 98 97 Oxygen Delivery Method Room Air Room Air Positive well nourished and obese General Appearance ED: NAD; Negative for pallor Nutritional Appearance: obese HEENT Reports moist mucous membranes normocephalic and atraumatic Eyes PERRL and EOMs intact bilaterally Resp normal respiratory effort and clear to auscultation bilaterally Cardio regular rate and regular rhythm GI non-distended Palpation: soft and tender LLQ Neuro Sensorium / Orientation: alert, oriented to person, oriented to place and oriented to time Psych mental status grossly normal and thought process normal Skin General Skin Exam: Negative for jaundice or pallor Lesions: no lesions Rashes: no rashes <Dr. Codie Peterson MD - Last Filed: 10/10/21 00:33> Physical Exam Const Vital Signs: 10/09/21 20:28 10/09/21 20:40 Temperature 97.0 F L Temperature Source Temporal Pulse Rate 66 64 Respiratory Rate 16 19 H Blood Pressure 121/71 H 117/67 Blood Pressure Mean 87 83 Pulse Ox 98 97 Oxygen Delivery Method Room Air Room Air MDM <Dr. Abdi Nair DO - Last Filed: 10/12/21 22:25> MDM MDM Narrative Medical decision making narrative: Review the medical record shows that she has recurrent UTIs. She sees Dr. Luis on an outpatient basis for this. Patient has also had recurrent diverticulitis and chronic diarrhea and she has seen Dr. Gonzalez in August. CBC shows no leukocytosis and her hemoglobin hematocrit are stable. Renal function has declined slightly and her creatinine is 1.56 with a GFR of 34. Previous creatinine was 1.34. Previous GFR was 43. Patient was given a liter of IV fluids. Urinalysis is consistent with UTI with positive nitrites and 500 leukocyte esterase 25-50 white blood cells and 2+ bacteria. It appears that her previous urine culture was pansensitive. Patient will have CT of the abdomen pelvis with IV contrast to see if she had fact has diverticulitis. Patient was given morphine and Zofran and is comfortable. Lab Data Labs: Laboratory Results - last 24 hr 10/09/21 10/09/21 10/09/21 20:55 20:55 22:23 WBC 8.1 RBC 3.71 L Hgb 12.3 Hct 36.5 L MCV 98.4 MCH 33.2 H MCHC 33.7 RDW Std Deviation 48.3 H RDW Coeff of Keysha 13.5 Plt Count 209 MPV 9.5 Immature Gran % (Auto) 0.200 Neut % (Auto) 68.3 Lymph % (Auto) 20.8 [place] % (Auto) 9.4 Eos % (Auto) 0.9 Baso % (Auto) 0.4 Absolute Neuts (auto) 5.6 Absolute Lymphs (auto) 1.69 Nucleated RBC % 0 Sodium 140 Potassium 3.8 Chloride 106 Carbon Dioxide 27.0 Anion Gap 7 BUN 24 H Creatinine 1.56 H Estim Creat Clear Calc 19.28 Est GFR (MDRD) Af Amer 41 L Est GFR (MDRD) Non-Af 34 L BUN/Creatinine Ratio 15.4 Glucose 115 H Calcium 9.2 Total Bilirubin 0.80 AST 23 ALT 19 Alkaline Phosphatase 64 Total Protein 7.1 Albumin 2.8 L Globulin 4.3 H Albumin/Globulin Ratio 0.7 L Urine Color Yellow Urine Clarity Sl. Cloudy Urine pH 5.0 Ur Specific [place] 1.020 Urine Protein 30 H Urine Glucose (UA) Normal Urine Ketones Negative Urine Occult Blood 25 H Urine Nitrite Positive H Urine Bilirubin Negative Urine Urobilinogen Normal Ur Leukocyte Esterase 500 H Urine RBC 0 SEEN Urine WBC 25-50 SEEN Ur Squamous Epith Cells 5-10 SEEN Urine Bacteria 2+ Urine Mucus 1+ Radiography Diagnostic Testing: Clinical Impression(s) from Imaging Studies Abdomen/Pelvis CT 10/09/21 21:16 IMPRESSION: 1. Sigmoid diverticulitis with no perforation or abscess formation. 2. Atherosclerotic disease and mildly atrophic kidneys. 3. Other nonurgent findings within body of report. Individualized dose optimization techniques were used for this CT. at 0015 Reported and signed by: Sylvester Mendez MD Electronically Signed: Sylvester Mendez MD at 0:14 EST Tel , Service support , <Dr. Codie Peterson MD - Last Filed: 10/10/21 00:33> [facility] Lab Data Labs: Laboratory Results - last 24 hr 10/09/21 10/09/21 10/09/21 20:55 20:55 22:23 WBC 8.1 RBC 3.71 L Hgb 12.3 Hct 36.5 L MCV 98.4 MCH 33.2 H MCHC 33.7 RDW Std Deviation 48.3 H RDW Coeff of Keysha 13.5 Plt Count 209 MPV 9.5 Immature Gran % (Auto) 0.200 Neut % (Auto) 68.3 Lymph % (Auto) 20.8 [place] % (Auto) 9.4 Eos % (Auto) 0.9 Baso % (Auto) 0.4 Absolute Neuts (auto) 5.6 Absolute Lymphs (auto) 1.69 Nucleated RBC % 0 Sodium 140 Potassium 3.8 Chloride 106 Carbon Dioxide 27.0 Anion Gap 7 BUN 24 H Creatinine 1.56 H Estim Creat Clear Calc 19.28 Est GFR (MDRD) Af Amer 41 L Est GFR (MDRD) Non-Af 34 L BUN/Creatinine Ratio 15.4 Glucose 115 H Calcium 9.2 Total Bilirubin 0.80 AST 23 ALT 19 Alkaline Phosphatase 64 Total Protein 7.1 Albumin 2.8 L Globulin 4.3 H Albumin/Globulin Ratio 0.7 L Urine Color Yellow Urine Clarity Sl. Cloudy Urine pH 5.0 Ur Specific [place] 1.020 Urine Protein 30 H Urine Glucose (UA) Normal Urine Ketones Negative Urine Occult Blood 25 H Urine Nitrite Positive H Urine Bilirubin Negative Urine Urobilinogen Normal Ur Leukocyte Esterase 500 H Urine RBC 0 SEEN Urine WBC 25-50 SEEN Ur Squamous Epith Cells 5-10 SEEN Urine Bacteria 2+ Urine Mucus 1+ Radiography Diagnostic Testing: Clinical Impression(s) from Imaging Studies Abdomen/Pelvis CT 10/09/21 21:16 IMPRESSION: 1. Sigmoid diverticulitis with no perforation or abscess formation. 2. Atherosclerotic disease and mildly atrophic kidneys. 3. Other nonurgent findings within body of report. Individualized dose optimization techniques were used for this CT. at 0015 Reported and signed by: Sylvester Mendez MD Electronically Signed: Sylvester Mendez MD at 0:14 EST Tel , Service support , Treatment and Re-Evaluation Comments:: Patient signed out to me pending CT scan results. CT scan does reveal evidence of sigmoid diverticulitis with no perforation or abscess. Test results discussed with patient and at bedside. Patient be treated with Augmentin to cover both her UTI and for diverticulitis. Patient is to follow-up with both GI and urology. Patient has pain medication at home to use. Discharge Plan Triage Chief Complaint: Abd Pain ED Provider: Abdi Nair Dx/Rx/DC Orders Clinical Impression: UTI (urinary tract infection), Diverticulitis Instructions: ED Diverticulitis, ED CYSTITIS Female Adult Prescriptions: New amoxicillin-pot clavulanate [Augmentin] 875-125 mg tablet 1 tab PO BID Qty: 20 RF: 0 No Action ezetimibe 10 mg tablet 10 mg PO DAILY RF: 0 cephalexin 250 mg capsule 250 mg PO DAILY RF: 0 methenamine hippurate [Hiprex] 1 gram tablet 1 g PO BID RF: 0 Myrbetriq 50 mg tablet extended release 24 hr 50 mg PO DAILY RF: 0 omeprazole 40 MG capsule,delayed release(DR/EC) 40 mg PO DAILY RF: 0 rosuvastatin 10 MG tablet 10 mg PO QHS RF: 0 nebivolol 10 MG tablet 10 mg PO QHS Qty: 0 RF: 0 hydrocodone-acetaminophen 1 EACH tablet 1 - 2 ea PO Q6H RF: 0 gabapentin 100 mg capsule 100 mg PO TID RF: 0 dicyclomine 10 mg Capsule 10 mg PO Q6H PRN (Reason: abdominal discomfort/ibs) Qty: 60 RF: 0 cholecalciferol (vitamin D3) 125 mcg (5,000 unit) Capsule 125 mcg PO DAILY RF: 0 budesonide 3 mg capsule,delayed,extend.release 3 mg PO QAM 30 Days Qty: 30 RF: 1 Primary Care Provider: Josefina Xiong Referrals: Shyla Luis MD [STAFF PHYSICIAN] - Josefina Xiong DO [Primary Care Provider] - Dipak Gonzalez DO [STAFF PHYSICIAN] - Disposition Disposition: Home, Self Care Discharge Date/Time: 10/10/21 01:50
[2021-10-09 22:38] LABS: White Blood Cells 25-50 SEEN /hpf (0-5)
[2021-10-09 22:39] LABS: Bacteria 2+ /hpf (None Seen); Mucous, Urine 1+ /hpf (<or=2+); Squamous Epithelial Cells - UA 5-10 SEEN /hpf (5-10)
[2021-10-10] MEDS: 0.9% Normal Saline 1,000 ML 999 ML IV (00:48)
[2021-10-10] MEDS: Amox/Clavulanate 875 MG Tablet PO (00:48)
== END 2021-10-10 01:50 | disposition home or self-care (01) ==
PROVIDERS: Emergency Provider Student in an Organized Health Care Education/Training Program; PCP Internal Medicine
DX: N39.0 Urinary tract infection, site not specified (principal); K57.32 Diverticulitis of large intestine without perforation or abscess without bleeding; D64.9 Anemia, unspecified; E11.36 Type 2 diabetes mellitus with diabetic cataract; E11.40 Type 2 diabetes mellitus with diabetic neuropathy, unspecified; E78.00 Pure hypercholesterolemia, unspecified; I10 Essential (primary) hypertension; Z86.73 Personal history of transient ischemic attack (TIA), and cerebral infarction without residual deficits; E66.9 Obesity, unspecified; E78.1 Pure hyperglyceridemia; I48.91 Unspecified atrial fibrillation; K21.9 Gastro-esophageal reflux disease without esophagitis; K58.9 Irritable bowel syndrome, unspecified; M19.90 Unspecified osteoarthritis, unspecified site; Z87.440 Personal history of urinary (tract) infections; Z87.891 Personal history of nicotine dependence
CPT/HCPCS: 74177; 80053; 81001; 85025; 96361; 96374; 96375; 99285; J7030; Q9967; A4216; J2405

== ENCOUNTER 2022-01-03 16:40 | Emergency (ER) | payer MEDICARE, SELFPAY ==
[2022-01-03 16:41] VITALS: BP 137/87; PULSE 73; RESP 15; TEMP 36.4; O2SAT 100; BMI 39.0
--- NOTE | 2022-01-03 17:37 | CT_ITS ---
STUDY: CT ABDOMEN AND PELVIS WITH CONTRAST REASON FOR EXAM: Female, 86 years old. LLQ pain -- IV PO Contrast RADIATION DOSAGE (If Supplied By Facility): CTDIvol = ( 21.97 ) mGy, DLP = ( 927.71 ) mGycm TECHNIQUE: Transaxial images were obtained from the dome of the diaphragm to the symphysis pubis without oral contrast. Oral and amp; IV Gastrografin and amp; 100mL Isovue-300 was administered. Sagittal and coronal images were reconstructed. Individualized dose optimization techniques were used for this CT. COMPARISON: None. FINDINGS: Subsegmental atelectasis in the lower lobes. The visualized portions of the heart are within normal limits. Normal liver. Gallbladder has been removed surgically.. Normal spleen. Diffuse pancreatic atrophy Normal bilateral adrenal glands. Normal right kidney. Normal left kidney. Postsurgical changes of the stomach status post fundoplication. Normal small intestine. Diverticular disease of the distal descending and sigmoid colon without evidence for acute diverticulitis.) Appendix has been removed surgically Atherosclerotic changes of the aorta without evidence for aneurysm Normal inferior vena cava. Normal retroperitoneum. Uterus has been removed surgically Normal urinary bladder. Normal abdominal wall. Lumbar spine demonstrates degenerative change. Postop change status post bilateral laminectomy and discectomy at L4-5 and L5-S1 CT/Abdomen/Pelvis WITH Contrast IMPRESSION: Diverticular disease of the descending and sigmoid colon without evidence for acute diverticulitis.. Status post cholecystectomy gastric fundoplication hysterectomy and appendectomy Electronically Signed: Elie Qiu MD at 20:46 EST ,
--- NOTE | 2022-01-03 17:39 | EDS_ITS ---
HPI History of Present Illness Chief Complaint: Flank Pain Informant: patient Onset/Context/Timing Onset: Yesterday Context: Gradual Onset Timing: Waxes and wanes Current Severity: Mild Maximum Severity: Severe Narrative Narrative: Patient presents with left flank pain that started yesterday. She states she was on the commode a lot yesterday with diarrhea and flank pain. She assumes that she is having a flare of her diverticulitis. She had some chills but no fever. No obvious blood in her stool. She states the pain does wrap to the left CVA region this time which she has not had previously. [facility] Medical History Anemia Bone fracture Cataract Diarrhea Diverticulitis DJD (degenerative joint disease), lumbar Elevated triglycerides with high cholesterol Environmental allergies Essential (primary) hypertension Former smoker GERD (gastroesophageal reflux disease) Hearing problem History of UTI Hypertension IBS (irritable bowel syndrome) Kidney failure Left carotid artery stenosis Neuropathy New onset atrial fibrillation (01/10/19) Obesity Osteoarthritis Right bundle branch block (RBBB) Thyroid nodule TIA (transient ischemic attack) Type 2 diabetes mellitus Home Medications omeprazole 40 mg PO DAILY 06/08/16 [History Last Taken 04/21/21] rosuvastatin 10 mg PO QHS 07/18/17 [History Last Taken 04/21/21] nebivolol 10 mg PO QHS #0 01/11/19 [Rx Last Taken 04/21/21] hydrocodone-acetaminophen 1 - 2 ea PO Q6H 07/19/19 [History Last Taken 04/21/21] gabapentin 100 mg PO TID 04/10/21 [History Last Taken 04/21/21] dicyclomine 10 mg PO Q6H PRN #60 cap 04/14/21 [Rx Last Taken 04/21/21] cholecalciferol (vitamin D3) 125 mcg PO DAILY 04/22/21 [History Last Taken 04/21/21] ezetimibe 10 mg tablet 10 mg PO DAILY 07/24/21 [History Last Taken Unknown] methenamine hippurate 1 gram tablet 1 g PO BID 07/24/21 [History Last Taken Unknown] mirabegron 50 mg tablet,extended release 24 hr 50 mg PO DAILY 07/24/21 [History Last Taken Unknown] budesonide 3 mg capsule,delayed,extended release See Rx Instructions .ROUTE .COMPLEX #30 capsule 12/27/21 [Rx Last Taken Unknown] dicyclomine 20 mg PO BID PRN #14 tab 01/03/22 [Rx Last Taken Unknown] hydrocodone-acetaminophen 1 tab PO Q6H PRN 3 Days #10 tab 01/03/22 [Rx Last Taken Unknown] Allergy/AdvReac Type Severity Reaction Status Date / Time fentanyl AdvReac Other Verified 01/03/22 16:41 Sulfa (Sulfonamide AdvReac Other Verified 01/03/22 16:41 Antibiotics) Surgical History History of appendectomy History of back surgery History of hysterectomy History of tonsillectomy Hx of cholecystectomy S/P repair of paraesophageal hernia Status post biopsy of thyroid gland Social History Smoking Status: Former smoker ROS ROS ED Constitutional Constitutional ED: Reports chills; Denies fever(s) Eyes Eyes: Denies change in vision ENT ENT ED: Denies sore throat Cardiovascular Cardiovascular: Denies chest pain Respiratory/Chest Respiratory/Chest: Denies cough or dyspnea Gastrointestinal Gastrointestinal: Reports abdominal pain and diarrhea; Denies nausea or vomiting Genitourinary Genitourinary ED: Denies dysuria or hematuria Musculoskeletal Musculoskeletal: Reports back pain Integumentary Denies rash Neurologic Neurologic: Denies headache(s) or weakness Allergic/Immunologic Allergic/Immunologic ED: Denies urticaria EXAM Physical Exam Const Vital Signs: 01/03/22 16:41 01/03/22 20:47 Temperature 97.6 F L Temperature Source Temporal Pulse Rate 73 70 Respiratory Rate 15 15 Blood Pressure 137/87 H 118/62 Blood Pressure Mean 103 80 Pulse Ox 100 97 Oxygen Delivery Method Room Air Room Air Positive well nourished and well developed General Appearance ED: well developed HEENT Reports moist mucous membranes Eyes PERRL and EOMs intact bilaterally Neck supple Chest Wall inspection of chest normal and palpation of chest normal Resp normal respiratory effort and clear to auscultation bilaterally Cardio regular rate and regular rhythm GI Palpation: soft and tender LLQ (Mild left lower quadrant tenderness.) Extremity normal to inspection Neuro oriented x3 Sensorium / Orientation: alert Psych mental status grossly normal Skin no rashes or lesions noted MDM MDM MDM Narrative Medical decision making narrative: Patient given a small dose of morphine and Zofran for pain. Lab work, urinalysis, CT abdomen pelvis ordered. Lab Data Attestation: I reviewed the patient's lab results. Labs: Laboratory Results - last 24 hr 01/03/22 01/03/22 01/03/22 17:07 17:07 20:32 WBC 8.3 RBC 3.88 L Hgb 12.6 Hct 38.1 MCV 98.2 MCH 32.5 H MCHC 33.1 RDW Std Deviation 46.6 H RDW Coeff of Keysha 13.2 Plt Count 194 MPV 9.7 Immature Gran % (Auto) 0.400 Neut % (Auto) 68.0 Lymph % (Auto) 21.8 [place] % (Auto) 8.9 Eos % (Auto) 0.7 Baso % (Auto) 0.2 Absolute Neuts (auto) 5.6 Absolute Lymphs (auto) 1.81 Nucleated RBC % 0 Differential Comment SCANNED Sodium 136 Potassium 4.0 Chloride 104 Carbon Dioxide 27.0 Anion Gap 5 BUN 19 H Creatinine 1.19 H Estim Creat Clear Calc 24.83 Est GFR (MDRD) Af Amer 55 L Est GFR (MDRD) Non-Af 46 L BUN/Creatinine Ratio 16.0 Glucose 106 Calcium 8.9 Urine Color Yellow Urine Clarity Clear Urine pH 6.0 Ur Specific Hanna 1.015 Urine Protein Negative Urine Glucose (UA) Normal Urine Ketones Negative Urine Occult Blood Negative Urine Nitrite Negative Urine Bilirubin Negative Urine Urobilinogen Normal Ur Leukocyte Esterase Negative Urine RBC 0 SEEN Urine WBC 0 SEEN Ur Squamous Epith Cells 0 SEEN Urine Bacteria 0 SEEN Urine Mucus 0 SEEN Radiography Diagnostic Testing: Clinical Impression(s) from Imaging Studies Abdomen/Pelvis CT 01/03/22 17:37 IMPRESSION: Diverticular disease of the descending and sigmoid colon without evidence for acute diverticulitis.. Status post cholecystectomy gastric fundoplication hysterectomy and appendectomy Electronically Signed: Elie Qiu MD at 20:46 EST , Treatment and Re-Evaluation Comments:: Patient was given a second dose of morphine after CT scan. Lab work reviewed with patient and at bedside. Labs are normal at this time. Chemistry studies normal. CT scan reveals evidence of diverticular disease but no acute diverticulitis. There is no evidence of kidney stone. Patient does have frustration that we do not have a definite explanation for her pain, however I did advise her that we were able to rule out acute diverticulitis, mass, kidney stone, etc. She will be treated with hydrocodone as well as Bentyl. She will follow up with Dr. Gonzalez. Discharge Plan Triage Chief Complaint: Flank Pain ED Provider: Codie Peterson Dx/Rx/DC Orders Clinical Impression: Flank pain Instructions: ED Flank Pain, Uncertain Cause Prescriptions: New hydrocodone-acetaminophen 5-325 mg tablet 1 tab PO Q6H PRN (Reason: pain) 3 Days Qty: 10 RF: 0 dicyclomine 20 mg tablet 20 mg PO BID PRN (Reason: abdominal cramping) Qty: 14 RF: 0 No Action ezetimibe 10 mg tablet 10 mg PO DAILY RF: 0 methenamine hippurate [Hiprex] 1 gram tablet 1 g PO BID RF: 0 Myrbetriq 50 mg tablet extended release 24 hr 50 mg PO DAILY RF: 0 omeprazole 40 MG capsule,delayed release(DR/EC) 40 mg PO DAILY RF: 0 rosuvastatin 10 MG tablet 10 mg PO QHS RF: 0 nebivolol 10 MG tablet 10 mg PO QHS Qty: 0 RF: 0 hydrocodone-acetaminophen 1 EACH tablet 1 - 2 ea PO Q6H RF: 0 gabapentin 100 mg capsule 100 mg PO TID RF: 0 dicyclomine 10 mg Capsule 10 mg PO Q6H PRN (Reason: abdominal discomfort/ibs) Qty: 60 RF: 0 cholecalciferol (vitamin D3) 125 mcg (5,000 unit) Capsule 125 mcg PO DAILY RF: 0 budesonide 3 mg capsule,delayed,extend.release See Rx Instructions .ROUTE .COMPLEX Qty: 30 RF: 0 Primary Care Provider: Josefina Xiong Referrals: Josefina Xiong DO [Primary Care Provider] - Dipak Gonzalez DO [STAFF PHYSICIAN] - As soon as possible Disposition Disposition: Home, Self Care
[2022-01-03] MEDS: Morphine 2 MG/ML Syringe IV ×2 (17:47→20:43)
[2022-01-03] MEDS: Ondansetron 4 MG/2 ML Vial IV (17:47)
[2022-01-03] MEDS: 0.9% Normal Saline 1,000 ML 150 ML IV (17:47)
[2022-01-03 18:16] LABS: Anion Gap 5 (5-15); BUN 19 mg/dL (7-18); Calcium,Total 8.9 mg/dL (8.5-10.1); Chloride 104 mmol/L (98-107); Creatinine, Serum 1.19 mg/dL (0.55-1.02); EST Glomerular Filtration Rate 46 mL/min (>60); Est Glom Filt Rate - Afr Amer 55 mL/min (>60); Estimated Creatinine Clearance 24.83 ml/min; Glucose 106 mg/dL (74-106); Sodium Level 136 mmol/L (136-145)
[2022-01-03 18:23] LABS: Absolute Lymphocyte Count 1.81 X10^3/uL (0.83-4.51); Absolute Neutrophil Count 5.6 X10^3/uL (2.0-7.7); Basophil# 0.02 X10^3/uL; Basophil% 0.2 % (0-1); Eosinophil# 0.06 X10^3/uL; Eosinophils% 0.7 % (0-5); Hematocrit 38.1 % (37-47); Hemoglobin 12.6 g/dL (12.0-15.0); Lymphocyte # 1.81 X10^3/ul (0.83-4.51); Lymphocyte % 21.8 % (19-41); Mean Corp Hgb Conc 33.1 g/dL (32-36); Mean Corpuscular Hgb 32.5 pg (27.0-32.0); Mean Corpuscular Volume 98.2 fL (81-99); Mean Platelet Vol. 9.7 fl (6.2-12.0); Monocyte# 0.74 X10^3/uL; Monocyte% 8.9 % (0-10); NRBC Flagged by Analyzer 0 % (0-5); Neutrophil # 5.64 X10^3/uL (2.7-7.7); POSITIVE COUNT YES; Platelet Count 194 K/mm3 (150-450); RBC Distribution Width CV 13.2 % (11.6-14.6); RBC Distribution Width SD 46.6 fl (35.1-43.9); Red Blood Count 3.88 M/mm3 (4.2-5.4); White Blood Count 8.3 K/mm3 (4.4-11.0)
[2022-01-03 18:53] LABS: Differential Indicated SCAN CRITERIA MET
[2022-01-03 18:56] LABS: Differential Comment SCANNED
[2022-01-03 20:35] LABS: Bacteria 0 SEEN /hpf (None Seen); Mucous, Urine 0 SEEN /hpf (<or=2+); Red Blood Cells-Urine 0 SEEN /hpf (0-5); Squamous Epithelial Cells - UA 0 SEEN /hpf (5-10); White Blood Cells 0 SEEN /hpf (0-5)
[2022-01-03 20:41] LABS: Color, Urine Yellow (Yellow); Glucose, Dipstick Normal (Normal); Ketone-Dipstick Negative (Negative); Leukocyte Esterase-Dipstick Negative /ul (Negative); Nitrite-Dipstick Negative (Negative); Occult Blood-Urine Negative /ul (Negative); Protein-Dipstick Negative (Negative); Specific Gravity, Urine 1.015 (1.002-1.030); Urine Bilirubin Dipstick Negative (Negative); Urine Clarity Clear (Clear); Urine Urobilinogen Normal (Normal)
[2022-01-03 20:47] VITALS: BP 118/62; PULSE 70; RESP 15; O2SAT 97
[2022-01-03 21:38] VITALS: BP 93/72; PULSE 76; RESP 15; O2SAT 97
[2022-01-03 21:43] VITALS: BP 93/72; PULSE 76; RESP 15; O2SAT 97
[2022-01-03] MEDS: HYDROcodone Bitartrate/Apap 5/325 Tablet PO (21:49)
[2022-01-03] MEDS: Dicyclomine 10 MG Capsule 20 MG PO (21:49)
== END 2022-01-03 21:51 | disposition home or self-care (01) ==
PROVIDERS: Emergency Provider Emergency Medicine; PCP Internal Medicine; Visit Provider Emergency Medicine
DX: R10.9 Unspecified abdominal pain (principal); E11.40 Type 2 diabetes mellitus with diabetic neuropathy, unspecified; I10 Essential (primary) hypertension; R68.83 Chills (without fever); Z87.891 Personal history of nicotine dependence; E78.00 Pure hypercholesterolemia, unspecified
CPT/HCPCS: 74177; 80048; 81001; 85025; 99285; J7030; Q9967; A4216; J2405